=== PATIENT | female | born 1955 | race Caucasian/White ===

== ENCOUNTER → 2016-04-21 | Outpatient (CLI) | payer OTHER ==
[~2016-04-21] MED LIST: ALBU1.257 NEB; AMT25 PO; APR25 PO; ASPI81TA28 PO; BTLAI200 SQ; CARV3.122 PO; CLON0.5T3 PO; CRG625 PO; CYAN10005 SQ; DILT120C58 PO; DVN80125 PO; FESO8TAB PO; FLUT1AER5 INH; GABA1CAP5 PO; GLC/500 PO; GLIM1TAB2 PO; LIDO4CRE10 TOP; MAGN400T6 PO; POTA10CA28 PO; PRAM1TAB52 PO; PRLSR20 PO; PSYL0.524 PO; SIMV20TA2 PO; TORS10TA14 PO; VALS-10 PO; VALS160T4 PO; VNTHFA/IN INH
--- NOTE | 2016-04-21 15:45 | DIAGNOSTIC IMAGING REPORT ---
SACRUM COCCYX MIN 2 VIEWS CLINICAL HISTORY: Leg weakness and muscle spasms COMPARISON STUDY: None FINDINGS: There is a transitional vertebra present. There are degenerative changes present within the SI joints. There is no fusion. There are no erosive changes. No acute fractures are visualized. IMPRESSION: 1. Transitional vertebra 2. No conventional radiographic evidence of an inflammatory cellulitis 3. No acute fractures Electronically signed by: Jayden Gabriel M.D. 04/21/2016 3:43 PM Dictated Date/Time: 04/21/2016 3:42 PM
--- NOTE | 2016-04-21 15:48 | DIAGNOSTIC IMAGING REPORT ---
L-SPINE MIN 4 VIEWS ROUTINE CLINICAL HISTORY: Leg muscle weakness. COMPARISON: None FINDINGS: There is a gallstone within the gallbladder. Alignment of the lumbar spine is anatomic. Vertebral body heights are maintained. There is no acute fracture. Mild multilevel degenerative disc disease and facet arthrosis is present. IMPRESSION: 1. No lumbar spine fracture. 2. Mild multilevel degenerative disc disease and facet arthrosis of the lumbar spine. 3. Cholelithiasis. Electronically signed by: Walter Mendez M.D. 04/21/2016 3:46 PM Dictated Date/Time: 04/21/2016 3:44 PM
== END | disposition home or self-care (01) ==
LOC: C.RAD1850 15:06
PROVIDERS: ATTEND Nurse Practitioner Family
DX: G47.33 Obstructive sleep apnea (adult) (pediatric) (principal); M62.81 Muscle weakness (generalized); R20.2 Paresthesia of skin; Q76.49 Other congenital malformations of spine, not associated with scoliosis; K80.20 Calculus of gallbladder without cholecystitis without obstruction

== ENCOUNTER → 2016-06-23 | Outpatient (CLI) | payer OTHER ==
--- NOTE | 2016-06-23 14:20 | DIAGNOSTIC IMAGING REPORT ---
RIGHT SHOULDER MIN 2 VIEWS CLINICAL HISTORY: Right shoulder pain COMPARISON: None. DISCUSSION: No fractures or dislocations are visualized. There are mild degenerative changes in the AC joint. No destructive lesions are evident. IMPRESSION: Mild degenerative change. No fractures or dislocations identified. Electronically signed by: Jayden Gabriel M.D. 06/23/2016 2:19 PM Dictated Date/Time: 06/23/2016 2:18 PM
--- NOTE | 2016-06-23 15:00 | DIAGNOSTIC IMAGING REPORT ---
CERVICAL SPINE 4 OR 5 VIEWS CLINICAL HISTORY: Right shoulder pain. COMPARISON STUDY: No previous studies for comparison. FINDINGS: The inferior endplate of C7 is obscured on this exam. There is mild to moderate disc space narrowing with osteophytosis at C5-C6. No fracture or suspicious lesion is present. IMPRESSION: 1. Mild to moderate degenerative disc disease at C5-C6. 2. Obscuration of the inferior endplate of C7. No fracture within visualized portions of the cervical spine. Electronically signed by: Walter Mendez M.D. 06/23/2016 2:59 PM Dictated Date/Time: 06/23/2016 2:58 PM
== END | disposition home or self-care (01) ==
LOC: C.RDSM 14:35
PROVIDERS: ATTEND Family Medicine
DX: M25.511 Pain in right shoulder (principal); M50.322 Other cervical disc degeneration at C5-C6 level

== ENCOUNTER → 2016-09-24 | Outpatient (CLI) | payer OTHER ==
[~2016-09-24] MED LIST changes: -CLON0.5T3 PO; -DILT120C58 PO; -DVN80125 PO; -FESO8TAB PO; -VALS160T4 PO
--- NOTE | 2016-09-24 16:08 | MAMMOGRAPHY REPORT ---
BILATERAL DIGITAL SCREENING MAMMOGRAM TOMOSYNTHESIS WITH CAD: 09/24/2016 CLINICAL HISTORY: Routine screening. Patient has no complaints. TECHNIQUE: Breast tomosynthesis in addition to standard 2D mammography was performed. Current study was also evaluated with a Computer Aided Detection (CAD) system. COMPARISON: Comparison is made to exams dated: 09/24/2015 mammogram, 09/20/2014 mammogram, [facility], 06/23/2008, 06/23/2007, and 05/18/2006. BREAST COMPOSITION: The tissue of both breasts is almost entirely fatty. FINDINGS: No suspicious masses, calcifications, or areas of architectural distortion are noted in ei ther breast. There has been no significant interval change compared to prior exams. IMPRESSION: ACR BI-RADS CATEGORY 1: NEGATIVE There is no mammographic evidence of malignancy. A 1 year screening mammogram is recommended. The pa tient will receive written notification of the results. Approximately 10% of breast cancers are not detected with mammography. A negative mammographic report should not delay biopsy if a clinically suggestive mass is present. Donna Silva M.D. /:09/24/2016 15:24:01 [employer]: Leonila RUSSO(Jabier)(Danny)([place]), [facility] letter sent: Normal 1/2 BI-RADS Code: ACR BI-RADS Category 1: Negative
== END | disposition home or self-care (01) ==
LOC: C.MAMM 11:11
PROVIDERS: ATTEND Nurse Practitioner Family
DX: Z12.31 Encounter for screening mammogram for malignant neoplasm of breast (principal)

== ENCOUNTER → 2016-09-25 | Outpatient (CLI) | payer OTHER | END | disposition home or self-care (01) | LOC: C.LABSPEC 17:04 | PROVIDERS: ATTEND Nurse Practitioner Family | DX: N39.0 Urinary tract infection, site not specified (principal) ==

== ENCOUNTER → 2016-10-30 | Day surgery (SDC) | payer OTHER ==
[2016-09-23 11:13] VITALS: Ht 171.5 cm; Wt 159.1 kg
[~2016-10-30] VITALS: Ht 171.5 cm; Wt 159.1 kg
[~2016-10-30] MED LIST changes: +BUPIVACAINE 0.25% 2.5MG/ML PF 10 ML VIAL ONE; +IOPAMIDOL INJ 61% 15 ML VIAL ONE; +LIDOCAINE HCL 1% MPF 5 ML VIAL ONE
[2016-10-30 14:17] VITALS: BP 134/70; PULSE 70; TEMP 36.8; O2SAT 95
--- NOTE | 2016-10-30 14:25 | Discharge Instructions ---
Discharge Instructions Date of Service Oct 30, 2016. Visit Reason for Visit: Sacroiliitis Discharge Discharge Diagnosis / Problem: low back pain Discharge Goals Goal(s): Decrease discomfort, Improve function Activity Recommendations Activity Limitations: resume your previous activity Anesthesia . Post Anesthesia Instructions: If you have had General Anesthesia or IV Sedation: * Do not drive today. * Resume driving when surgeon permits. * Do not make important decisions or sign legal documents today. * Call surgeon for: 1. Temperature elevations greater than 101 degrees F. 2. Uncontrollable pain. 3. Excessive bleeding. 4. Persistent nausea and vomiting. 5. Medication intolerance (nausea, vomiting or rash). * For nausea and vomiting use only clear liquids such as: tea, soda, bouillon until nausea subsides, then gradually increase diet as tolerated. * If you have any concerns or questions, call your surgeon's office. If physician is unavailable and it is an emergency, call 911 or go to the nearest emergency room. . Diet Recommendations Recommended Home Diet: resume previous diet Procedures Procedures Performed: RIGHT SACROILIAC JOINT INJECTION Pending Studies Studies pending at discharge: no Medical Emergencies . Who to Call and When: Medical Emergencies: If at any time you feel your situation is an emergency, please call 911 immediately. . Non-Emergent Contact Non-Emergency issues call your: Specialist . . "Provider Documentation" section prepared by Richie Box. .
--- NOTE | 2016-10-30 14:44 | OPERATIVE REPORT ---
DATE OF OPERATION: 10/30/2016 PREOPERATIVE DIAGNOSIS: Right sacroiliitis. POSTOPERATIVE DIAGNOSIS: Same. PROCEDURE: Right sacroiliac joint injection under fluoroscopic guidance. INDICATIONS: The patient is a 61-year-old white female who presents today for a sacroiliac joint injection. She has known symphysis pubis pain and pain locating to the sacroiliac region. She presents today as conservative treatments have not improved her problems for an injection into the SI joint. PHYSICAL EXAMINATION: GENERAL: Pleasant female seated comfortably. MUSCULOSKELETAL: She has tenderness to palpation of the SI joints, most consistently on the right more so than the left. Mild reproduction of pain with extension. Positive Kirstin maneuver bilaterally. No motor or sensory changes in lower extremities. CONSENT: Verbal and written consent was obtained from the patient. Risks and benefits were reviewed. Risks include but are not limited to abscess and allergic reaction. The patient wishes to proceed. PROCEDURE: The patient was taken back to the special procedures room of the [facility]. She was maintained in a prone position. Backside was cleansed with Betadine x3 and a dry sterile dressing was applied. Fluoroscope was used to identify the right SI joint and the overlying skin was anesthetized with 4 mL of lidocaine 1% with a 25 gauge 1.5-inch needle. A 22 gauge 5 inch spinal needle was then directed into the right SI joint. There was some discomfort when it entered the SI joint. Isovue 300 contrast was injected; it showed it to be a little lateral. She then underwent repositioning more medially. Again 0.25 mL Isovue 300 contrast was injected in which showed intra-articular placement. She then underwent injection after negative aspiration of 40 mg of Depo-Medrol and 1.5 mL of bupivacaine 0.25%. Injection was well tolerated. DISPOSITION: 1. The patient is taken out into the discharge recovery area where she will be discharged home once discharge criteria have been met. 2. Follow up in the [facility] office in 2-4 weeks. I attest to the content of the Intraoperative Record and any orders documented therein. Any exception s are noted below.
== END | disposition home or self-care (01) ==
LOC: X.SURG 13:28
PROVIDERS: ATTEND Physical Medicine & Rehabilitation
DX: M46.1 Sacroiliitis, not elsewhere classified (principal); E11.40 Type 2 diabetes mellitus with diabetic neuropathy, unspecified

== ENCOUNTER → 2016-12-25 | Day surgery (SDC) | payer OTHER ==
[2016-12-10 12:30] VITALS: Ht 171.5 cm; Wt 148.6 kg
[~2016-12-25] VITALS: Ht 171.5 cm; Wt 148.6 kg
[~2016-12-25] MED LIST changes: -CARV3.122 PO; -IOPAMIDOL INJ 61% 15 ML VIAL ONE
--- NOTE | 2016-12-25 14:14 | History & Physical Bridge - SC ---
H&P Re-Evaluation Bridge Note: I have examined the patient, reviewed the History & Physical and in the interval since the performance of the History & Physical I have noted the following changes of clinical significance: No changes noted
[2016-12-25 14:36] VITALS: BP 125/68; PULSE 65; TEMP 36.7; O2SAT 98
--- NOTE | 2016-12-25 14:43 | Discharge Instructions ---
Discharge Instructions Date of Service Dec 25, 2016. Visit Reason for Visit: Low Back Pain Discharge Discharge Diagnosis / Problem: low back pain Discharge Goals Goal(s): Decrease discomfort, Improve function Activity Recommendations Activity Limitations: resume your previous activity Anesthesia . Post Anesthesia Instructions: If you have had General Anesthesia or IV Sedation: * Do not drive today. * Resume driving when surgeon permits. * Do not make important decisions or sign legal documents today. * Call surgeon for: 1. Temperature elevations greater than 101 degrees F. 2. Uncontrollable pain. 3. Excessive bleeding. 4. Persistent nausea and vomiting. 5. Medication intolerance (nausea, vomiting or rash). * For nausea and vomiting use only clear liquids such as: tea, soda, bouillon until nausea subsides, then gradually increase diet as tolerated. * If you have any concerns or questions, call your surgeon's office. If physician is unavailable and it is an emergency, call 911 or go to the nearest emergency room. . Diet Recommendations Recommended Home Diet: resume previous diet Procedures Procedures Performed: RIGHT L5-S1 MEDIAL BRANCH BLOCK Pending Studies Studies pending at discharge: no Medical Emergencies . Who to Call and When: Medical Emergencies: If at any time you feel your situation is an emergency, please call 911 immediately. . Non-Emergent Contact Non-Emergency issues call your: Specialist . . "Provider Documentation" section prepared by Richie Box. .
--- NOTE | 2016-12-25 15:13 | OPERATIVE REPORT ---
DATE OF OPERATION: 12/25/2016 PREOPERATIVE DIAGNOSES: Chronic low back pain and right L5-S1 facet arthropathy. POSTOPERATIVE DIAGNOSES: Same. PROCEDURE: Right L5-S1 facet medial branch blocks. INDICATIONS: The patient is a 61-year-old white female who has chronic right-sided low back pain. She did not get any benefit whatsoever from the sacroiliac joint injection and described her pain being a little higher than this. It is felt to be reflective of a facet arthropathy. She presents today for a diagnostic block to determine if this is indeed the etiology of her pain. PHYSICAL EXAMINATION: Pleasant female seated comfortably. She has point tenderness to palpation of the right L5-S1 facet area. This is worse with extension and rotation and actually relieved with forward flexion to the left side. She has normal motor and sensory examination of the lower extremities. CONSENT: Verbal and written consent was obtained from the patient. Risks and benefits were reviewed. Risks include, but are not limited to abscess and allergic reaction. The patient wishes to proceed. DESCRIPTION OF PROCEDURE: The patient was taken back to the special procedures room of the [facility], where she was maintained in a prone position. Backside was cleansed with Betadine x3 and a dry sterile dressing was applied. Fluoroscope was used to identify the L5 transverse process on the right and the right sacral ala. Overlying skin was anesthetized with 2.5 mL of lidocaine 1% with a 25-gauge 1-1/2 inch needle at each site. A 22-gauge 5-inch needle was directed at each site contacting bone at the sacral ala on the right and the right transverse process junction and then was anesthetized with 1 mL of bupivacaine 0.25% at each site. The procedure was well tolerated. DISPOSITION: 1. The patient was taken out into the discharge recovery area, where she will be discharged home once discharge criteria have been met. 2. Follow up in the [facility] office in 2-4 weeks. I attest to the content of the Intraoperative Record and any orders documented therein. Any exception s are noted below.
== END | disposition home or self-care (01) ==
LOC: X.SURG 13:27
PROVIDERS: ATTEND Physical Medicine & Rehabilitation
DX: M47.817 Spondylosis without myelopathy or radiculopathy, lumbosacral region (principal)

== ENCOUNTER → 2017-04-01 | Day surgery (SDC) | payer OTHER ==
[2017-03-09 11:41] VITALS: Ht 171.5 cm; Wt 151.8 kg
[~2017-04-01] VITALS: Ht 171.5 cm; Wt 151.8 kg
[~2017-04-01] MED LIST changes: -APR25 PO; +CARV6.252 PO; -CRG625 PO; -PSYL0.524 PO; -VALS-10 PO
[2017-04-01 14:28] VITALS: TEMP 36.4
--- NOTE | 2017-04-01 14:35 | Discharge Instructions ---
Discharge Instructions Date of Service Apr 01, 2017. Visit Reason for Visit: Lumbar Radiculopathy Discharge Discharge Diagnosis / Problem: low back pain Discharge Goals Goal(s): Decrease discomfort, Improve function Activity Recommendations Activity Limitations: resume your previous activity Anesthesia . Post Anesthesia Instructions: If you have had General Anesthesia or IV Sedation: * Do not drive today. * Resume driving when surgeon permits. * Do not make important decisions or sign legal documents today. * Call surgeon for: 1. Temperature elevations greater than 101 degrees F. 2. Uncontrollable pain. 3. Excessive bleeding. 4. Persistent nausea and vomiting. 5. Medication intolerance (nausea, vomiting or rash). * For nausea and vomiting use only clear liquids such as: tea, soda, bouillon until nausea subsides, then gradually increase diet as tolerated. * If you have any concerns or questions, call your surgeon's office. If physician is unavailable and it is an emergency, call 911 or go to the nearest emergency room. . Diet Recommendations Recommended Home Diet: resume previous diet Procedures Procedures Performed: Bilateral L5-S1 Medial Branch Blocks Pending Studies Studies pending at discharge: no Medical Emergencies . Who to Call and When: Medical Emergencies: If at any time you feel your situation is an emergency, please call 911 immediately. . Non-Emergent Contact Non-Emergency issues call your: Specialist . . "Provider Documentation" section prepared by Richie Box. .
[2017-04-01 14:40] VITALS: BP 149/67; PULSE 58; O2SAT 99
--- NOTE | 2017-04-01 14:53 | OPERATIVE REPORT ---
DATE OF OPERATION: 04/01/2017 PREOPERATIVE DIAGNOSES: Chronic low back pain, chronic facet arthropathy. POSTOPERATIVE DIAGNOSES: Same. PROCEDURE: Bilateral L5-S1 medial branch blocks under fluoroscopic guidance. INDICATIONS: The patient is a 61-year-old white female who underwent bilateral L5-S1 branch blocks in the past. She initially did not feel they were effective then she felt they were effective. She presents today for a second series of blocks to determine if indeed they were effective in relieving her back pain. PHYSICAL EXAMINATION: Pleasant female seated comfortably. She has normal motor and sensory examinations of her lower extremities. Negative seated straight leg raises. She has positive pain with palpation of the facet joints, worse with extension, extension and rotation. CONSENT: Verbal and written consent was obtained from the patient. Risks and benefits were reviewed. Risks include but are not limited to abscess and allergic reaction. The patient wishes to proceed. DESCRIPTION OF PROCEDURE: The patient was taken back to the special procedures room at [facility] where she was maintained in a prone position. Backside was cleansed with Betadine x3 and a dry sterile dressing was applied. Fluoroscope was used to identify the L5 transverse process and the sacral ala on the left side. Overlying skin was anesthetized with 1.25 mL of lidocaine 1% with a 25 gauge 1.5-inch needle. A 25-gauge 3-inch needle was then directed targeting bone at each sites, was lifted off a few millimeters and then injected with 1 mL of bupivacaine at each site. The right L5 transverse process and the right sacral ala were then fluoroscopically identified. There was a calcified transverse process to the sacral noted. Overlying skin anesthetized again with 1.25 mL of lidocaine 1% with a 25 gauge 1.5-inch needle, a 25 gauge 3.5 inch spinal needle contacted bone at each site was lifted off a few millimeters and then injected after negative aspiration with 1 mL bupivacaine 0.25%. The procedure was well tolerated. DISPOSITION: 1. The patient is taken out into the discharge recovery area, she will be discharged home once discharge criteria have been met. 2. Follow up in the [facility] office in 4 weeks. The importance of maintaining a pain dairy for the next 48 hours was reinforced with the patient today. I attest to the content of the Intraoperative Record and any orders documented therein. Any exception s are noted below.
== END | disposition home or self-care (01) ==
LOC: X.SURG 13:04
PROVIDERS: ATTEND Physical Medicine & Rehabilitation
DX: M54.5 Low back pain (principal); M51.86 Other intervertebral disc disorders, lumbar region; G89.29 Other chronic pain

== ENCOUNTER 2017-05-27 07:09 | Inpatient (IN) | payer OTHER ==
[~2017-05-27] VITALS: Ht 167.6 cm; Wt 138.8 kg
[2017-05-27] VITALS (9 sets, daily range): BP systolic 125–151; BP diastolic 63–85; PULSE 64–93; TEMP 36.6–36.9; O2SAT 91–98; Ht 167.6 cm; Wt 138.8 kg
[~2017-05-27 07:09] MED LIST changes: -ASPI81TA28 PO; -BUPIVACAINE 0.25% 2.5MG/ML PF 10 ML VIAL ONE; -GABA1CAP5 PO; -GLC/500 PO; -GLIM1TAB2 PO; -LIDOCAINE HCL 1% MPF 5 ML VIAL ONE; -MAGN400T6 PO; -POTA10CA28 PO; +PREG1CAP28 PO; -TORS10TA14 PO
[2017-05-27] MEDS ORDERED: FUROSEMIDE 40 MG/4 ML VIAL IV STA (07:27)
--- NOTE | 2017-05-27 07:53 | DIAGNOSTIC IMAGING REPORT ---
CHEST ONE VIEW PORTABLE HISTORY: 61 years-old Female sob acute cough with shortness of breath COMPARISON: Chest radiographs 01/19/2013 TECHNIQUE: Portable AP view of the chest FINDINGS: Cardiac silhouette is within the upper limits of normal in size. Atherosclerosis of the aorta. No pneumothorax. Blunting of the left costophrenic angle suggests trace effusion. Multifocal multilobar distribution of alveolar opacities are present bilaterally within a mid and lower lung zone predominant distribution. Bones of the chest appear grossly intact. IMPRESSION: 1. Multifocal multilobar distribution of alveolar opacities are present bilaterally within a mid and lower lung zone predominant distribution suggesting multifocal pneumonia. 2. Trace left pleural effusion. The above report was generated using voice recognition software. It may contain grammatical, syntax or spelling errors. Electronically signed by: Eron Boggs M.D. 05/27/2017 7:52 AM Dictated Date/Time: 05/27/2017 7:49 AM
[2017-05-27] MEDS ORDERED: CEFTRIAXONE SOD INJ 1 GM ADDVIAL IV STA (08:10)
[2017-05-27 08:14] LABS: BASO % 0.2 %; BASO ABS # 0.01 K/uL (0-0.2); EOS % 0.2 %; EOS ABS # 0.01 K/uL (0-0.5); HEMATOCRIT 35.8 % (37-47); HEMOGLOBIN 12.2 g/dL (12.0-16.0); IG# 0.01 K/uL (0.00-0.02); LYMPH % 8.7 %; LYMPH ABS # 0.45 K/uL (1.2-3.4); MEAN CELL VOLUME 91.3 fL (80-100); MEAN CORPUSCULAR HEMOGLOBIN 31.1 pg (25-34); MEAN CORPUSCULAR HGB CONC 34.1 g/dl (32-36); MEAN PLATELET VOLUME 11.5 fL (7.4-10.4); MONO % 5.4 %; MONO ABS # 0.28 K/uL (0.11-0.59); NEUT % 85.3 %; NEUT ABS # 4.44 K/uL (1.4-6.5); PLATELET COUNT 177 K/uL (130-400); RED CELL DISTRIBUTION WIDTH CV 14.9 % (11.5-14.5); RED CELL DISTRIBUTION WIDTH SD 49.6 fL (36.4-46.3)
[2017-05-27] MEDS ORDERED: AZITHROMYCIN IV 500 MG in DEXTROSE 5% 250ML 250 ML IV ONE (08:15)
[2017-05-27 08:31] LABS: PTT PATIENT 24.6 SECONDS (21.0-31.0)
[2017-05-27 08:32] LABS: ALBUMIN 3.4 gm/dl (3.4-5.0); ALT/SGPT 21 U/L (12-78); AST/SGOT 17 U/L (15-37); BLOOD UREA NITROGEN 23 mg/dl (7-18); CALCIUM 8.4 mg/dl (8.5-10.1); CARBON DIOXIDE 26 mmol/L (21-32); CREATININE 0.78 mg/dl (0.60-1.20); GLUCOSE 137 mg/dl (70-99); POTASSIUM 3.1 mmol/L (3.5-5.1); SODIUM 140 mmol/L (136-145)
[2017-05-27 08:37] LABS: ALKALINE PHOSPHATASE 106 U/L (45-117); TOTAL PROTEIN 6.7 gm/dl (6.4-8.2)
--- NOTE | 2017-05-27 10:06 | EMERGENCY ROOM VISIT NOTE ---
History Report prepared by Juan José: Mary Kelly Under the Supervision of: Dr. Tevin Larson D.O. First contact with patient: 07:22 Chief Complaint: RESPIRATORY PROBLEMS Stated Complaint: RATTLED BREATHING,COUGH, SOB, COLD History of Present Illness The patient is a 61 year old female who presents to the Emergency Room with complaints of constant shortness of breath for the past 3.5 hours. The patient states that she had a sudden onset of symptoms this morning at 4am. She woke up "breathing heavy." She felt cold this morning and developed a cough. She states that she is occasionally coughing up red sputum, which she is unsure if it is blood or juice from yesterday. She has been having difficulty breathing and has felt short of breath since she woke up. The patient has never experienced symptoms like this before. She denies any personal history CHF or LA. She does not take Lasix or use oxygen at home. The patient denies fevers, chills, rhinorrhea, chest pain. She notes leg swelling, which is chronic and she states is not as bad as usual. She has been eating and drinking normally. 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 A total of 10 systems reviewed and were otherwise negative. Past Medical & Surgical Medical Problems: (1) Hypertension Nos (2) Knee Joint Replacement Status (3) Pure Hypercholesterolem Surgical Problems: (1) H/O gastric bypass Family History Cancer Social History Smoking Status: Former Smoker Marital Status: Housing Status: lives with family Occupation Status: employed Current/Historical Medications Scheduled Amitriptyline HCl (Amitriptyline HCl), 25 MG PO HS Botulinum Toxin Type A (Botox), 1 DOSE SQ DIRECTED Carvedilol (Coreg), 12.5 MG PO BID Cyanocobalamin (Vitamin B-12), 1,000 MCG SQ MONTHLY Omeprazole (Prilosec), 20 MG PO QAM Pramipexole Dihydrochloride (Mirapex), 0.5 MG PO HS Pregabalin (Lyrica), 75 MG PO BID Simvastatin (Zocor), 20 MG PO QPM Scheduled PRN Albuterol Hfa (Ventolin Hfa), 2-4 PUFFS INH Q6H PRN for Shortness of Breath Albuterol Sulfate (Albuterol Sulfate), 1 VIAL NEB Q4 PRN for Shortness of Breath Fluticasone Propionate (Inhala (Flovent Diskus), 1 PUFFS INH BID PRN for Shortness of Breath Lidocaine (Anorectal) (Lidocaine), 1 APPLN TOP TID PRN for Itching Allergies Coded Allergies: Atenolol (Verified Allergy, Mild, RASH, 05/27/17) Benazepril (Verified Adverse Reaction, Mild, COUGH, 05/27/17) Physical Exam Vital Signs Date Time Temp Pulse Resp B/P (MAP) Pulse Ox O2 Delivery O2 Flow Rate FiO2 05/27/17 08:37 133/75 05/27/17 08:09 81 24 95 05/27/17 07:39 83 30 05/27/17 07:37 82 05/27/17 07:29 90 Nasal Cannula 4.0 05/27/17 07:29 90 Nasal Cannula 4.0 05/27/17 07:28 86 Room Air 05/27/17 07:28 90 Nasal Cannula 4.0 05/27/17 07:16 36.7 87 22 137/78 83 Room Air Physical Exam CONSTITUTIONAL/VITAL SIGNS: Reviewed / noted above. GENERAL: Non-toxic in appearance. INTEGUMENTARY: Warm, dry, and slightly ashen in appearance. HEAD: Normocephalic. EYES: without scleral icterus or trauma. ENT/OROPHARYNX: clear and moist. LYMPHADENOPATHY/NECK: Is supple without lymphadenopathy or meningismus. RESPIRATORY: Rhonchi bilaterally CARDIOVASCULAR: Regular rate and rhythm. GI/ABDOMEN: Soft and nontender. No organomegaly or pulsatile mass. No rebound or guarding. Normal bowel sounds. EXTREMITIES: Bilateral pedal edema. Warm and well perfused. BACK: No CVA tenderness. NEUROLOGICAL: Intact without focal deficits. PSYCHIATRIC: normal affect. MUSCULOSKELETAL: Normally developed with good muscle tone. Medical Decision & Procedures ER Provider Diagnostic Interpretation: Radiology results as stated below per my review and radiologist interpretation: CHEST ONE VIEW PORTABLE HISTORY: 61 years-old Female sob acute cough with shortness of breath COMPARISON: Chest radiographs 01/19/2013 TECHNIQUE: Portable AP view of the chest FINDINGS: Cardiac silhouette is within the upper limits of normal in size. Atherosclerosis of the aorta. No pneumothorax. Blunting of the left costophrenic angle suggests trace effusion. Multifocal multilobar distribution of alveolar opacities are present bilaterally within a mid and lower lung zone predominant distribution. Bones of the chest appear grossly intact. IMPRESSION: 1. Multifocal multilobar distribution of alveolar opacities are present bilaterally within a mid and lower lung zone predominant distribution suggesting multifocal pneumonia. 2. Trace left pleural effusion. The above report was generated using voice recognition software. It may contain grammatical, syntax or spelling errors. Electronically signed by: Eron Boggs M.D. 05/27/2017 7:52 AM Dictated Date/Time: 05/27/2017 7:49 AM Laboratory Results 05/27/17 07:45 Red Blood Count 3.92, Mean Corpuscular Volume 91.3, Mean Corpuscular Hemoglobin 31.1, Mean Corpuscular Hemoglobin Concent 34.1, Mean Platelet Volume 11.5, Neutrophils (%) (Auto) 85.3, Lymphocytes (%) (Auto) 8.7, Monocytes (%) (Auto) 5.4, Eosinophils (%) (Auto) 0.2, Basophils (%) (Auto) 0.2, Neutrophils # (Auto) 4.44, Lymphocytes # (Auto) 0.45, Monocytes # (Auto) 0.28, Eosinophils # (Auto) 0.01, Basophils # (Auto) 0.01 05/27/17 07:45 Test 05/27/17 07:45 05/27/17 08:06 White Blood Count 5.20 K/uL (4.8-10.8) Red Blood Count 3.92 M/uL (4.2-5.4) Hemoglobin 12.2 g/dL (12.0-16.0) Hematocrit 35.8 % (37-47) Mean Corpuscular Volume 91.3 fL (80-100) Mean Corpuscular Hemoglobin 31.1 pg (25-34) Mean Corpuscular Hemoglobin Concent 34.1 g/dl (32-36) Platelet Count 177 K/uL (130-400) Mean Platelet Volume 11.5 fL (7.4-10.4) Neutrophils (%) (Auto) 85.3 % Lymphocytes (%) (Auto) 8.7 % Monocytes (%) (Auto) 5.4 % Eosinophils (%) (Auto) 0.2 % Basophils (%) (Auto) 0.2 % Neutrophils # (Auto) 4.44 K/uL (1.4-6.5) Lymphocytes # (Auto) 0.45 K/uL (1.2-3.4) Monocytes # (Auto) 0.28 K/uL (0.11-0.59) Eosinophils # (Auto) 0.01 K/uL (0-0.5) Basophils # (Auto) 0.01 K/uL (0-0.2) RDW Standard Deviation 49.6 fL (36.4-46.3) RDW Coefficient of Variation 14.9 % (11.5-14.5) Immature Granulocyte % (Auto) 0.2 % Immature Granulocyte # (Auto) 0.01 K/uL (0.00-0.02) Prothrombin Time 10.4 SECONDS (9.0-12.0) Prothromb Time International Ratio 1.0 (0.9-1.1) Activated Partial Thromboplast Time 24.6 SECONDS (21.0-31.0) Partial Thromboplastin Ratio 0.9 Anion Gap 8.0 mmol/L (3-11) Estimated GFR () 93.8 Estimated GFR (Non- 80.9 BUN/Creatinine Ratio 30.0 (10-20) Calcium Level 8.4 mg/dl (8.5-10.1) Total Bilirubin 0.7 mg/dl (0.2-1) Aspartate Amino Transf (AST/SGOT) 17 U/L (15-37) Alanine Aminotransferase (ALT/SGPT) 21 U/L (12-78) Alkaline Phosphatase 106 U/L (45-117) Total Creatine Kinase 94 U/L (26-192) Creatine Kinase MB 4.0 ng/ml (0.5-3.6) Creatine Kinase MB Ratio 4.3 (0-3.0) Troponin I < 0.015 ng/ml (0-0.045) Pro-B-Type Natriuretic Peptide 399 pg/ml (0-900) Total Protein 6.7 gm/dl (6.4-8.2) Albumin 3.4 gm/dl (3.4-5.0) Globulin 3.3 gm/dl (2.5-4.0) Albumin/Globulin Ratio 1.0 (0.9-2) Arterial Blood pH 7.41 (7.35-7.45) Arterial Blood Partial Pressure CO2 41 mmHg (35-46) Arterial Blood Partial Pressure O2 80 mm/Hg (80-95) Arterial Blood HCO3 25 mmol/L (19-24) Arterial Blood Oxygen Saturation 95.3 % (90-95) Arterial Blood Base Excess 0.6 mEq/L (-9-1.8) Arterial Blood Gas Delivery 5 L Andrew Test POS (POS) Laboratory results as stated above per my review. Medications Administered Medications (Trade) Dose Ordered Sig/Carlos Route Start Time Stop Time Status Last Admin Dose Admin Furosemide (Lasix Inj) 40 mg NOW STAT IV 05/27/17 07:27 05/27/17 07:30 DC 05/27/17 07:48 40 MG Azithromycin 500 mg/Dextrose 255 ml @ 125 mls/hr ONE ONCE IV 05/27/17 08:15 05/27/17 10:17 05/27/17 09:20 125 MLS/HR Ceftriaxone Sodium (Rocephin Inj) 1 gm NOW STAT IV 05/27/17 08:10 05/27/17 08:12 DC 05/27/17 09:20 1 GM ECG Per My Interpretation Indication: SOB/dyspnea Rate (beats per minute): 84 Rhythm: normal sinus Findings: T-wave inversion (inferior/lateral), no ectopy, other (no ST elevation) Comparison ECG Date: 01/18/2012 Change: These changes are new. ED Course 0722: Previous medical records were reviewed. The patient was evaluated in room B9. A complete history and physical examination was performed. 0727: Lasix 40 mg IV 0810: Rocephin 1 gm IV 0815: Azithromycin 500 mg/Dextrose 255 ml @ 125 mls/hr IV 0919: I reassessed the patient at this time. She is feeling better and resting comfortably. I discussed the results and treatment plan with the patient. I answered all pertaining questions that she had. She expressed understanding and verbalized agreement. 0924: I spoke with Dr. Dominguez. We discussed the patient's case. The patient will be evaluated by the [facility] for further management. Medical Decision Differentials considered include acute myocardial infarction, acute coronary syndrome, myocarditis, pericarditis, pericardial effusions /tamponade, esophageal perforation, pulmonary embolism, pneumonia, pneumothorax, cardiomyopathy, congestive heart, anemia, and COPD/asthma exacerbation. This is a 61-year-old female who presents to the ED with a chief complaint of shortness of breath. The patient states that she awoke suddenly at 4 AM having breathing difficulty. The patient denies any recent illness. She denies cough , fevers, chest pains or lower extremity edema. The patient does report that she does have some chronic lower extremity edema but this has not been as bad as usual. She is not on diuretics. Her physical exam reveals an ashen colored female in mild distress. She has some coarse breath sounds that are audible on both exam and auscultation with a stethoscope. Her lungs reveal bilateral rhonchi/rales in the bases. Her oxygen saturation was noted to be 86% on room air. This did improve to the low 90s with nasal cannula oxygen. Chest x-ray reveals bilateral pneumonia. CBC reveals a normal white blood cell count. She is not anemic. BUN is 23, troponin is negative. ABG reveals a normal acid base status with adequate ventilation and oxygenation on 5 L. She is not typically on oxygen at home. Based on the patient's initial impression and clinical evaluation, she was treated with IV Lasix. She was subsequently given IV Zithromax and IV Rocephin. The patient will be seen by the hospitalist service for further inpatient evaluation and care. Medication Reconcilliation Current Medication List: was personally reviewed by me Blood Pressure Screening Patient's blood pressure: Elevated blood pressure Blood pressure disposition: Elevated BP felt to be situational Consults Time Called: [phone] Consulting Physician: Dr. Dominguez Returned Call: [phone] Dominguez. We discussed the patient's case. The patient will be evaluated by the [facility] for further management. Impression Primary Impression: Pneumonia Additional Impression: Hypoxia Scribe Attestation The scribe's documentation has been prepared under my direction and personally reviewed by me in its entirety. I confirm that the note above accurately reflects all work, treatment, procedures, and medical decision making performed by me. Departure Information Dispostion Being Evaluated By Hospitalist Referrals Saira Finley (PCP) Patient Instructions My [facility] Problem Qualifiers
[2017-05-27] MEDS ORDERED: MAGNESIUM HYDROXIDE SUSP 30 ML UDC PO PRN (10:30)
[2017-05-27] MEDS ORDERED: ONDANSETRON INJ 2 MG/ML 2 ML VIAL IV PRN (10:30)
[2017-05-27] MEDS ORDERED: POLYETHYLENE (MIRALAX) 17 GM PACK PO PRN (10:30)
[2017-05-27] MEDS ORDERED: DEXTROSE 50% 50 ML SYR IV PRN (10:30)
[2017-05-27] MEDS ORDERED: ACETAMINOPHEN 325 MG TAB PO PRN (10:30)
[2017-05-27] MEDS ORDERED: GLUCAGON FOR INJ 1 MG VIAL SQ PRN (10:30)
[2017-05-27] MEDS ORDERED: GLUCOSE 10 TABS/TUBE PO PRN (10:30)
[2017-05-27] MEDS ORDERED: GLUCOSE 40% GEL 15 GM TUBE PO PRN (10:30)
[2017-05-27] MEDS ORDERED: ALUMINUM/MAGNESIUM/SIMETH (MAALOX MAX) 30 ML UDC PO PRN (10:30)
[2017-05-27] MEDS ORDERED: POTASSIUM CHLORIDE 20 MEQ TABCR PO STA (10:36)
[2017-05-27] MEDS ORDERED: OPTIRAY 320 IV PRN (10:45)
--- NOTE | 2017-05-27 10:53 | History and Physical ---
History & Physical Date & Time of Service: May 27, 2017 at 10:33 Chief Complaint: Rattled Breathing,Cough, Sob, Cold Primary Care Physician: Saira Finley History of Present Illness Source: patient, spouse, clinic records, hospital records This is a 61 y/o female with a history of HTN, HLD, SVT, DM II, peripheral edema , asthma, CHELSIE on CPAP, RLS, GERD, and morbid obesity s/p recent gastric bypass who presented to the ED on 05/27 with sudden onset shortness of breath, productive cough, and wheezing. The patient states she was in her normal state of health last night when she went to bed. This morning she woke up around 0400 with sudden onset of shortness of breath and wheezing. She also developed a productive cough that appeared bloody, although the patient notes she was drinking strawberry juice yesterday. She reported feeling generally weak and fatigued this morning. She denies any fevers but reported chills. She also notes a diffuse 5/10 aching abdominal pain when she coughs. The patient recently had simultaneous gastric bypass, cholecystectomy, and hernia repair at [facility] [place]. The patient denies fevers, sweats, chest pain, palpitations, claudication, nausea, vomiting, dysuria, hematuria, urinary retention, paralysis , focal motor weakness, numbness and tingling. Past Medical/Surgical History HTN HLD H/o SVT DM II Peripheral edema Mild intermittent asthma CHELSIE on CPAP RLS GERD S/p gastric bypass Family History Cancer (liver, ovarian) Diabetes mellitus Myocardial infarction Social History Smoking Status: Former Smoker (quit 40 years ago) Smokeless Tobacco Use: No Alcohol Use: none Drug Use: none Marital Status: Housing status: lives with significant other Occupational Status: retired Immunizations History of Influenza Vaccine: Yes History of Tetanus Vaccine?: Unknown History of Pneumococcal: No History of Hepatitis B Vaccine: No Multi-Drug Resistant Organisms History of MDRO: No Allergies Coded Allergies: Atenolol (Verified Allergy, Mild, RASH, 05/27/17) Benazepril (Verified Adverse Reaction, Mild, COUGH, 05/27/17) Home Medications Scheduled Amitriptyline HCl (Amitriptyline HCl), 25 MG PO HS Botulinum Toxin Type A (Botox), 1 DOSE SQ DIRECTED Carvedilol (Coreg), 12.5 MG PO BID Cyanocobalamin (Vitamin B-12), 1,000 MCG SQ MONTHLY Omeprazole (Prilosec), 20 MG PO QAM Pramipexole Dihydrochloride (Mirapex), 0.5 MG PO HS Pregabalin (Lyrica), 75 MG PO BID Simvastatin (Zocor), 20 MG PO QPM Scheduled PRN Albuterol Hfa (Ventolin Hfa), 2-4 PUFFS INH Q6H PRN for Shortness of Breath Albuterol Sulfate (Albuterol Sulfate), 1 VIAL NEB Q4 PRN for Shortness of Breath Fluticasone Propionate (Inhala (Flovent Diskus), 1 PUFFS INH BID PRN for Shortness of Breath Lidocaine (Anorectal) (Lidocaine), 1 APPLN TOP TID PRN for Itching Review of Systems Constitutional: +Chills, weak, fatigued. No fever, No sweats Eyes: No worsening of vision, No eye pain, No diplopia ENT: No hearing loss, No nasal symptoms, No trouble swallowing Respiratory: +Productive cough, wheezing, SOB. Cardiovascular: No chest pain, No claudication, No palpitations Abdomen: +Abdominal pain w/coughing. No nausea, No vomiting Musculoskeletal: +Lower extremity edema improved since gastric bypass. No joint pain, No muscle pain Genitourinary - Female: No dysuria, No urinary retention, No hematuria Neurologic: No paralysis, No weakness, No numbness/tingling Integumentary: No rash, No itch, No color change Physical Exam Vital Signs Date Time Temp Pulse Resp B/P (MAP) Pulse Ox O2 Delivery O2 Flow Rate FiO2 05/27/17 10:12 75 29 97 05/27/17 09:42 74 22 95 05/27/17 09:12 76 27 97 05/27/17 08:42 77 23 97 05/27/17 08:37 133/75 05/27/17 08:09 81 24 95 05/27/17 07:39 83 30 05/27/17 07:37 82 05/27/17 07:29 90 Nasal Cannula 4.0 05/27/17 07:29 90 Nasal Cannula 4.0 05/27/17 07:28 86 Room Air 05/27/17 07:28 90 Nasal Cannula 4.0 05/27/17 07:16 36.7 87 22 137/78 83 Room Air General appearance: +Morbidly obese. Well-developed, well-nourished, no apparent distress Head: Normocephalic, atraumatic Eyes: Normal inspection, PERRL, EOMI ENT: Normal ENT inspection, hearing grossly normal, pharynx normal Neck: Supple, no JVD, trachea midline Respiratory/Chest: +Diffuse wheezing, rhonchi. On 4L NC. Normal breath sounds , no respiratory distress Cardiovascular: Regular rate & rhythm, no gallop, no murmur Abdomen/GI: +Umbilical area mildly TTP. Laparoscopic scars healed. Normal bowel sounds, soft Extremities/Musculoskeletal: +1+ pitting edema lower extremities bilaterally. Reportedly much improved since gastric bypass. No calf tenderness Neurological/Psych: Alert, normal mood/affect, oriented x 3 Skin: Normal color, warm/dry, no rash Diagnostics Laboratory Results Results Past 24 Hours Test 05/27/17 07:45 05/27/17 08:06 05/27/17 10:21 Range/Units White Blood Count 5.20 4.8-10.8 K/uL Red Blood Count 3.92 4.2-5.4 M/uL Hemoglobin 12.2 12.0-16.0 g/dL Hematocrit 35.8 37-47 % Mean Corpuscular Volume 91.3 80-100 fL Mean Corpuscular Hemoglobin 31.1 25-34 pg Mean Corpuscular Hemoglobin Concent 34.1 32-36 g/dl Platelet Count 177 130-400 K/uL Mean Platelet Volume 11.5 7.4-10.4 fL Neutrophils (%) (Auto) 85.3 % Lymphocytes (%) (Auto) 8.7 % Monocytes (%) (Auto) 5.4 % Eosinophils (%) (Auto) 0.2 % Basophils (%) (Auto) 0.2 % Neutrophils # (Auto) 4.44 1.4-6.5 K/uL Lymphocytes # (Auto) 0.45 1.2-3.4 K/uL Monocytes # (Auto) 0.28 0.11-0.59 K/uL Eosinophils # (Auto) 0.01 0-0.5 K/uL Basophils # (Auto) 0.01 0-0.2 K/uL RDW Standard Deviation 49.6 36.4-46.3 fL RDW Coefficient of Variation 14.9 11.5-14.5 % Immature Granulocyte % (Auto) 0.2 % Immature Granulocyte # (Auto) 0.01 0.00-0.02 K/uL Prothrombin Time 10.4 9.0-12.0 SECONDS Prothromb Time International Ratio 1.0 0.9-1.1 Activated Partial Thromboplast Time 24.6 21.0-31.0 SECONDS Partial Thromboplastin Ratio 0.9 Sodium Level 140 136-145 mmol/L Potassium Level 3.1 3.5-5.1 mmol/L Chloride Level 107 98-107 mmol/L Carbon Dioxide Level 26 21-32 mmol/L Anion Gap 8.0 3-11 mmol/L Blood Urea Nitrogen 23 7-18 mg/dl Creatinine 0.78 0.60-1.20 mg/dl Estimated GFR () 93.8 Estimated GFR (Non- 80.9 BUN/Creatinine Ratio 30.0 10-20 Random Glucose 137 70-99 mg/dl Calcium Level 8.4 8.5-10.1 mg/dl Total Bilirubin 0.7 0.2-1 mg/dl Aspartate Amino Transf (AST/SGOT) 17 15-37 U/L Alanine Aminotransferase (ALT/SGPT) 21 12-78 U/L Alkaline Phosphatase 106 45-117 U/L Total Creatine Kinase 94 26-192 U/L Creatine Kinase MB 4.0 0.5-3.6 ng/ml Creatine Kinase MB Ratio 4.3 0-3.0 Troponin I < 0.015 0-0.045 ng/ml Pro-B-Type Natriuretic Peptide 399 0-900 pg/ml Total Protein 6.7 6.4-8.2 gm/dl Albumin 3.4 3.4-5.0 gm/dl Globulin 3.3 2.5-4.0 gm/dl Albumin/Globulin Ratio 1.0 0.9-2 Arterial Blood pH 7.41 7.35-7.45 Arterial Blood Partial Pressure CO2 41 35-46 mmHg Arterial Blood Partial Pressure O2 80 80-95 mm/Hg Arterial Blood HCO3 25 19-24 mmol/L Arterial Blood Oxygen Saturation 95.3 90-95 % Arterial Blood Base Excess 0.6 -9-1.8 mEq/L Arterial Blood Gas Delivery 5 L Andrew Test POS POS Microbiology Results 05/27/17 Blood Culture, Received Pending 2/28/18 Blood Culture, Received Pending Diagnostic Radiology Reviewed the following studies and agree with interpretation as follows: CHEST ONE VIEW PORTABLE HISTORY: 61 years-old Female sob acute cough with shortness of breath COMPARISON: Chest radiographs 01/19/2013 TECHNIQUE: Portable AP view of the chest FINDINGS: Cardiac silhouette is within the upper limits of normal in size. Atherosclerosis of the aorta. No pneumothorax. Blunting of the left costophrenic angle suggests trace effusion. Multifocal multilobar distribution of alveolar opacities are present bilaterally within a mid and lower lung zone predominant distribution. Bones of the chest appear grossly intact. IMPRESSION: 1. Multifocal multilobar distribution of alveolar opacities are present bilaterally within a mid and lower lung zone predominant distribution suggesting multifocal pneumonia. 2. Trace left pleural effusion. EKG Reviewed EKG and agree with interpretation as follows: 84 bpm, NSR, inferior/lateral T wave abnormalities Impression Assessment and Plan 61 y/o female with a history of HTN, HLD, SVT, DM II, peripheral edema, asthma, CHELSIE on CPAP, RLS, GERD, and morbid obesity s/p recent gastric bypass (04/22/17) who presented to the ED on 05/27 with sudden onset shortness of breath, productive cough, and wheezing. Pt hypoxic on arrival with O2 sat 83% on room air, placed on 4L NC. Pt does not wear oxygen at home. Afebrile, other VSS. CXR shows multifocal pneumonia. EKG with inferior/lateral T wave abnormalities , troponin negative and no chest pain. BNP WNL. Potassium low at 3.1. ABG and other labs grossly unremarkable. Acute respiratory failure w/hypoxia, secondary to multifocal pneumonia and/or possibly PE--sudden onset of sx and recent surgery concerning for PE -Admit to telemetry -O2 by protocol. Currently on 4L NC, no oxygen at home -Stat chest CTA to r/o PE -Check lower extremity Doppler ultrasound bilaterally -Flu swab and MRSA nares swab ordered -Rocephin 1 gm IV qd and azithromycin 500 mg IV qd for PNA for now -Blood cultures pending -DuoNEbs QIDR and q2h prn SOB/wheezing Hypokalemia -Potassium 3.1 on arrival and received Lasix 40 mg IV in the ED -KCl 40 mEq PO x 1 now, then 20 mEq PO BID. Continue to monitor -Check magnesium now HTN, HLD, h/o SVT--stable -Continue Coreg 12.5 mg PO BID and Zocor 20 mg PO hs DM II w/neuropathy--last HgbA1c in hospital records from 2007. Pt had previously been on oral DM meds but stopped after bypass -Insulin sliding scale -Check BSGs q ac and qhs -Check HgbA1c -Continue amitriptyline 25 mg PO hs and Lyrica 75 mg PO BID Peripheral edema--improving per pt since bypass, no longer on diuretics, Dopplers as above Mild intermittent asthma -Nebs as above CHELSIE -Continue CPAP RLS -Continue Mirapex 0.5 mg PO hs GERD -Prilosec converted to Protonix DVT prophylaxis -Enoxaparin 40 mg SC q24h -EDIS varghese and Kailey Code Status -Level I, FULL RESUSCITATION STATUS Level of Care Telemetry Resuscitation Status FULL RESUSCITATION VTE Prophylaxis VTE Risk Assessment Done? Y/N: Yes Risk Level: Moderate Given or contraindicated: Enoxaparin (Lovenox)SQ, T.E.D. Stockings, SCD's Reviewed: Pt Seen/Exam by Me History Physician Opener [employer] supervision Note: I interviewed and examined the patient. Discussed with RA Olea and agree with findings and plan as documented in the note. Any exceptions or clarifications are listed here: Patient admitted with fairly acute onset of shortness of breath and productive cough, with possible scant hemoptysis. She did feel very fatigued the night prior to admission, but denies fevers. She did not have any associated chest pain. She arrived in the ER and was found to be hypoxic multifocal pneumonia on the chest x-ray and CT of the chest. Dopplers of lower extremities were negative despite chronic lower extremity edema which is actually improved since weight loss from her gastric bypass surgery. CT angiogram of the chest looking for PE showed no main pulmonary artery branch PEs, but was suboptimally assessed due to respiratory motion artifact for segmental and subsegmental PEs. She denies any sick contacts. She has been doing well otherwise since her gastric bypass surgery one month ago. Past medical history and ROS reviewed and as above Vitals reviewed Gen: AAOx3, NAD, morbidly obese HEENT: anicteric sclerae, EOMI, mucous membranes moist, no thrush in the oropharynx CV: RRR no mgr nl S1S2 Pulm: Bilateral lower and middle lung perez with crackles and rhonchi, some scattered expiratory wheezes bilaterally Abd: +BS soft NT ND no masses or hernias Ext: 1+ nonpitting edema of the legs bilaterally with chronic venous stasis changes and chronic blisters with woody edema of the left leg, 2+ DP pulses Skin: Chronic venous stasis changes as above, warm/dry Neuro: full strength throughout This patient is a 61-year-old female with a history of morbid obesity, peripheral edema, now diet controlled DM 2, HTN, HLD, SVT, asthma, CHELSIE on CPAP, RLS, GERD, and s/p recent gastric bypass (04/22/17) who presented to the ED on with sudden onset shortness of breath, productive cough, and wheezing. Pt with acute hypoxic respiratory failure on arrival with O2 sat 83% on room air and with tachypnea, was placed on 4L NC. Pt does not wear oxygen at home. Afebrile, other VSS. CXR shows multifocal pneumonia. EKG with inferior/ lateral T wave abnormalities, troponin negative and no chest pain. BNP WNL. Potassium low at 3.1. ABG and other labs grossly unremarkable. -CTA chest negative for large PE, venous Dopplers negative, no chest pain and acute hypoxic respiratory failure and dyspnea likely secondary to multifocal pneumonia-no further workup for PE needed at this time -Continue Rocephin and azithromycin for total 7 day course -Obtain sputum culture, follow blood cultures -Replace potassium -Repeat ECG in the morning given inferolateral T-wave inversions, repeat troponin -Wean oxygen off as tolerated to keep pulse ox. 92%, CPAP ordered for at nighttime -Lovenox SQ for DVT prophylaxis Documented By: Chelle Ashton
[2017-05-27] MEDS: ALBUT/IPRATROP 3MG/0.5MG NEB 3 ML VIAL INH SCH ×3 (11:48→19:36)
[2017-05-27] MEDS: ENOXAPARIN 40 MG/0.4 ML SYR SC SCH (12:18)
[2017-05-27] MEDS ORDERED: MAGNESIUM SULFATE 1GM / D5W 1 GM in PREMIXED IN D5W 100 ML IV ONE (12:45)
--- NOTE | 2017-05-27 12:57 | DIAGNOSTIC IMAGING REPORT ---
CT ANGIOGRAPHY OF THE CHEST, PULMONARY EMBOLUS PROTOCOL CLINICAL HISTORY: Shortness of breath. Recent gastric bypass surgery. COMPARISON STUDY: Chest CT June 24, 2013 and chest radiograph May 17, 2017. TECHNIQUE: Following IV administration of 86 mL of Optiray-320, helical axial images of the chest were obtained utilizing the pulmonary embolus protocol. Maximal intensity projections and sagittal and coronal reformats were viewed on an independent 3D workstation. IV contrast was administered without complication. A dose lowering technique was utilized adhering to the principles of ALARA. CT DOSE: 538.33 mGy.cm FINDINGS: No pulmonary emboli are identified although the segmental and subsegmental arteries are suboptimally assessed due to respiratory motion artifact. The heart is mildly enlarged. There is no pericardial effusion. There are no enlarged thoracic lymph nodes. No pneumothorax is present. There is no pleural effusion. Note is made of extensive bilateral lower lobe consolidation. There is no cavitation. There is no central obstructing mass. Bony thorax is unremarkable. The patient is status post gastric bypass. There is probable fatty infiltration of the liver. IMPRESSION: 1. No pulmonary emboli identified although segmental and subsegmental pulmonary arteries suboptimally assessed due to respiratory motion. 2. Extensive bilateral lower lobe consolidation consistent with pneumonia. The distribution raises the possibility of aspiration as the etiology. 3. Mild cardiomegaly. 4. Fatty liver. 5. Status post gastric bypass. Electronically signed by: Walter Mendez M.D. 05/27/2017 12:56 PM Dictated Date/Time: 05/27/2017 12:50 PM
[2017-05-27 13:01] LABS: INFLUENZA B ANTIGEN Neg for Influ B (NEG)
[2017-05-27] MEDS ORDERED: PNEUMOCOCCAL ADMINISTRATION CHARGE ONE (14:15)
[2017-05-27] MEDS ORDERED: PNEUMOCOCCAL POLYSACCHARIDES 25 MCG/0.5 ML VIAL/SYR IM. ONE (14:15)
--- NOTE | 2017-05-27 15:39 | DIAGNOSTIC IMAGING REPORT ---
BILATERAL LOWER EXTREMITY VENOUS DOPPLER CLINICAL HISTORY: recent surgery, lower extremity edema COMPARISON STUDY: Bilateral lower extremity venous Doppler January 16, 2008. TECHNIQUE: Sonography of the deep venous system of the bilateral lower extremities was performed. Compression and augmentation were evaluated. FINDINGS: The common femoral, superficial femoral and popliteal veins were compressible. Augmentation was normal. Flow was shown within the deep calf vessels. Bilateral calf edema was noted. IMPRESSION: No evidence of deep venous thrombus within the bilateral lower extremities. Electronically signed by: Walter Mendez M.D. 05/27/2017 3:37 PM Dictated Date/Time: 05/27/2017 3:36 PM
[2017-05-27] MEDS ORDERED: NURSING VERBAL MED ORDER ONE (16:15)
[2017-05-27] MEDS ORDERED: PREGABALIN 75 MG CAP PO ONE ×2 (16:30→21:30)
[2017-05-27] MEDS: INSULIN ASPART 100 UNITS/ML 3 ML PEN SC SCH ×2 (16:30→21:00)
[2017-05-27] MEDS ORDERED: CARVEDILOL 12.5 MG TAB PO ONE (16:30)
[2017-05-27] MEDS ORDERED: FLINTSTONES COMPLETE CHEWABLE TAB PO ONE (16:30)
[2017-05-27] MEDS ORDERED: BOOST VANILLA PO SCH (17:00)
[2017-05-27] MEDS: SIMVASTATIN 20 MG TAB PO SCH (21:41)
[2017-05-27] MEDS: AMITRIPTYLINE HCL 25 MG TAB PO SCH (21:42)
[2017-05-27] MEDS: PROSOURCE NOCARB 30ML/PKT PO SCH (21:42)
[2017-05-27] MEDS: PRAMIPEXOLE DIHYDROCHLORIDE 0.25MG TAB PO SCH (21:43)
[2017-05-27] MEDS: POTASSIUM CHLORIDE 20 MEQ TABCR PO SCH (21:43)
[2017-05-27] MEDS: BOOST GLUCOSE CONTROL PO SCH (21:43)
[2017-05-27] MEDS: FLINTSTONES COMPLETE CHEWABLE TAB PO SCH (21:43)
[2017-05-28] VITALS (12 sets, daily range): BP systolic 129–167; BP diastolic 53–80; PULSE 65–77; TEMP 36.1–37.2; O2SAT 93–96
[2017-05-28] MEDS: INSULIN ASPART 100 UNITS/ML 3 ML PEN SC SCH ×4 (06:30→20:39)
[2017-05-28 06:37] LABS: HEMATOCRIT 28.1 % (37-47); HEMOGLOBIN 9.7 g/dL (12.0-16.0); MEAN CELL VOLUME 91.5 fL (80-100); MEAN CORPUSCULAR HEMOGLOBIN 31.6 pg (25-34); MEAN CORPUSCULAR HGB CONC 34.5 g/dl (32-36); MEAN PLATELET VOLUME 11.5 fL (7.4-10.4); PLATELET COUNT 159 K/uL (130-400); RED CELL DISTRIBUTION WIDTH CV 15.3 % (11.5-14.5); RED CELL DISTRIBUTION WIDTH SD 50.8 fL (36.4-46.3); WHITE BLOOD COUNT 7.51 K/uL (4.8-10.8)
[2017-05-28] MEDS: ALBUT/IPRATROP 3MG/0.5MG NEB 3 ML VIAL INH SCH ×4 (07:03→20:15)
[2017-05-28 07:09] LABS: CALCIUM 8.5 mg/dl (8.5-10.1); CREATININE 0.68 mg/dl (0.60-1.20); POTASSIUM 3.2 mmol/L (3.5-5.1)
[2017-05-28] MEDS: CARVEDILOL 6.25 MG TAB PO SCH ×2 (07:49→20:39)
[2017-05-28] MEDS: PANTOprazole SOD 40 MG TAB PO SCH (07:51)
[2017-05-28] MEDS: FLINTSTONES COMPLETE CHEWABLE TAB PO SCH ×2 (07:51→20:37)
[2017-05-28] MEDS: CEFTRIAXONE SOD INJ 1 GM in DEXTROSE 5% ADD-VANTAGE 50ML 50 ML IV SCH (07:52)
[2017-05-28] MEDS: BOOST GLUCOSE CONTROL PO SCH ×2 (07:52→20:36)
[2017-05-28] MEDS: POTASSIUM CHLORIDE 20 MEQ TABCR PO SCH ×2 (07:52→20:37)
[2017-05-28] MEDS: PROSOURCE NOCARB 30ML/PKT PO SCH ×2 (07:53→20:38)
[2017-05-28] MEDS: AZITHROMYCIN IV 500 MG in DEXTROSE 5% 250ML 250 ML IV SCH (07:57)
[2017-05-28] MEDS: PREGABALIN 75 MG CAP PO SCH ×2 (07:57→20:49)
[2017-05-28] MEDS ORDERED: CYANOCOBALAMIN 1000 MCG/ML VIAL IM ONE (09:00)
[2017-05-28] MEDS ORDERED: MULTIVITAMIN TAB PO SCH (09:00)
[2017-05-28] MEDS ORDERED: POTASSIUM CHLORIDE 20 MEQ TABCR PO ONE (10:30)
[2017-05-28] MEDS: ENOXAPARIN 40 MG/0.4 ML SYR SC SCH (12:07)
--- NOTE | 2017-05-28 14:05 | Hospitalist Progress Note ---
Hospitalist Progress Note Date of Service May 28, 2017. (Paula Olea ., YUNIORC) Subjective Pt evaluation today including: conversation w/ patient, physical exam, chart review, lab review, review of studies, review of inpatient medication list Pain: None PO Intake: Tolerating PO diet Voiding: no voiding problems Patient reports feeling much better today. She is still short of breath and feels some chest pressure when taking deep breaths. She also states her wheezing is improved. She complains of a non-productive cough, no more bloody sputum. She denies any chills today. The patient denies fevers, chills, sweats , chest pain, palpitations, claudication, nausea, vomiting, abdominal pain, dysuria, hematuria, urinary retention, paralysis, weakness, numbness and tingling. Additional Comments: See HPI for pertinent positives and negatives. All other systems reviewed and negative. (Paula Olea ., PA-C) Objective Vital Signs Date Time Temp Pulse Resp B/P (MAP) Pulse Ox O2 Delivery O2 Flow Rate FiO2 05/28/17 11:57 Nasal Cannula 2.0 05/28/17 11:38 36.1 67 16 150/53 (85) 96 Room Air 05/28/17 08:00 Nasal Cannula 2.0 05/28/17 07:40 36.7 68 16 139/68 (91) 94 Room Air 05/28/17 07:03 71 16 94 Nasal Cannula 2.0 05/28/17 04:00 93 Nasal Cannula 2.0 05/28/17 04:00 36.6 72 20 129/69 (89) 93 Nasal Cannula 2.0 05/28/17 00:19 37.1 05/28/17 00:00 Nasal Cannula 2.0 CPAP 05/27/17 23:28 66 16 125/65 (85) 91 CPAP 05/27/17 22:22 85 96 05/27/17 20:00 Nasal Cannula 2.0 05/27/17 19:36 64 16 95 Nasal Cannula 2.0 05/27/17 19:24 36.9 93 22 139/63 (88) 95 Nasal Cannula 2.0 05/27/17 16:10 36.7 69 20 151/76 (101) 96 Nasal Cannula 2.0 05/27/17 16:00 96 Nasal Cannula 2.0 (Paula Olea ., PA-C) Physical Exam Notes: General appearance: +Morbidly obese. Well-developed, well-nourished, no apparent distress Head: Normocephalic, atraumatic Eyes: Normal inspection, PERRL, EOMI ENT: Normal ENT inspection, hearing grossly normal, pharynx normal Neck: Supple, no JVD, trachea midline Respiratory/Chest: +Down to 2L NC. Decreased breath sounds, tight w/poor air movement. Crackles in bases. No respiratory distress Cardiovascular: Regular rate & rhythm, no gallop, no murmur Abdomen/GI: Normal bowel sounds, non-tender, soft Extremities/Musculoskeletal: +1+ pitting edema lower extremities bilaterally. Normal inspection, no calf tenderness Neurological/Psych: Alert, normal mood/affect, oriented x 3 Skin: Normal color, warm/dry, no rash (Paula Olea ., RA-C) Laboratory Results Last 24 Hours Test 05/27/17 16:30 05/27/17 20:30 05/28/17 00:29 05/28/17 06:00 Bedside Glucose 119 mg/dl 98 mg/dl Troponin I < 0.015 ng/ml White Blood Count 7.51 K/uL Red Blood Count 3.07 M/uL Hemoglobin 9.7 g/dL Hematocrit 28.1 % Mean Corpuscular Volume 91.5 fL Mean Corpuscular Hemoglobin 31.6 pg Mean Corpuscular Hemoglobin Concent 34.5 g/dl RDW Standard Deviation 50.8 fL RDW Coefficient of Variation 15.3 % Platelet Count 159 K/uL Mean Platelet Volume 11.5 fL Sodium Level 141 mmol/L Potassium Level 3.2 mmol/L Chloride Level 106 mmol/L Carbon Dioxide Level 28 mmol/L Anion Gap 7.0 mmol/L Blood Urea Nitrogen 20 mg/dl Creatinine 0.68 mg/dl Est Creatinine Clear Calc Drug Dose 123.1 ml/min Estimated GFR () 107.9 Estimated GFR (Non- 93.1 BUN/Creatinine Ratio 29.0 Random Glucose 106 mg/dl Calcium Level 8.5 mg/dl Magnesium Level 2.0 mg/dl Test 05/28/17 07:21 Bedside Glucose 117 mg/dl (Paula Olea PA-C) Diagnostic Results Reviewed the following studies and agree with interpretation as follows: BILATERAL LOWER EXTREMITY VENOUS DOPPLER CLINICAL HISTORY: recent surgery, lower extremity edema COMPARISON STUDY: Bilateral lower extremity venous Doppler January 16, 2008. TECHNIQUE: Sonography of the deep venous system of the bilateral lower extremities was performed. Compression and augmentation were evaluated. FINDINGS: The common femoral, superficial femoral and popliteal veins were compressible. Augmentation was normal. Flow was shown within the deep calf vessels. Bilateral calf edema was noted. IMPRESSION: No evidence of deep venous thrombus within the bilateral lower extremities. CT ANGIOGRAPHY OF THE CHEST, PULMONARY EMBOLUS PROTOCOL CLINICAL HISTORY: Shortness of breath. Recent gastric bypass surgery. COMPARISON STUDY: Chest CT June 24, 2013 and chest radiograph May 17, 2017. TECHNIQUE: Following IV administration of 86 mL of Optiray-320, helical axial images of the chest were obtained utilizing the pulmonary embolus protocol. Maximal intensity projections and sagittal and coronal reformats were viewed on an independent 3D workstation. IV contrast was administered without complication. A dose lowering technique was utilized adhering to the principles of ALARA. CT DOSE: 538.33 mGy.cm FINDINGS: No pulmonary emboli are identified although the segmental and subsegmental arteries are suboptimally assessed due to respiratory motion artifact. The heart is mildly enlarged. There is no pericardial effusion. There are no enlarged thoracic lymph nodes. No pneumothorax is present. There is no pleural effusion. Note is made of extensive bilateral lower lobe consolidation. There is no cavitation. There is no central obstructing mass. Bony thorax is unremarkable. The patient is status post gastric bypass. There is probable fatty infiltration of the liver. IMPRESSION: 1. No pulmonary emboli identified although segmental and subsegmental pulmonary arteries suboptimally assessed due to respiratory motion. 2. Extensive bilateral lower lobe consolidation consistent with pneumonia. The distribution raises the possibility of aspiration as the etiology. 3. Mild cardiomegaly. 4. Fatty liver. 5. Status post gastric bypass. (Paula Olea ., PA-C) Assessment and Plan 61 y/o female with a history of HTN, HLD, SVT, DM II, peripheral edema, asthma, CHELSIE on CPAP, RLS, GERD, and morbid obesity s/p recent gastric bypass (04/22/17) who presented to the ED on 05/27 with sudden onset shortness of breath, productive cough, and wheezing. Pt hypoxic on arrival with O2 sat 83% on room air, placed on 4L NC. Pt does not wear oxygen at home. Afebrile, other VSS. CXR shows multifocal pneumonia. EKG with inferior/lateral T wave abnormalities , troponin negative and no chest pain. BNP WNL. Potassium low at 3.1. ABG and other labs grossly unremarkable. Acute respiratory failure w/hypoxia, secondary to multifocal pneumonia-- improving -Admit to telemetry. No acute events overnight. Pt in SR with HR in 60s, no SVT. Stable, will transfer to med/surg -O2 by protocol. Weaned down from 4L to 2L currently, continue to wean as tolerated. NOT on home oxygen -CTA negative for PE -B/l lower extremity Doppler negative for DVT -Flu swab negative, MRSA nares negative -Continue Rocephin 1 gm IV qd and azithromycin 500 mg IV qd. Day #2 -Blood cultures pending -DuoNEbs QIDR and q2h prn SOB/wheezing Hypokalemia--ongoing -Potassium 3.2 on 05/28 -KCl 40 mEq PO x 1 now, continue 20 mEq PO BID -Hypomagnesemia resolved, mag 2.0 on 05/28 HTN, HLD, h/o SVT--stable -Continue Coreg 12.5 mg PO BID and Zocor 20 mg PO hs DM II w/neuropathy--last HgbA1c in hospital records from 2007. Pt had previously been on oral DM meds but stopped after bypass -Insulin sliding scale -Check BSGs q ac and qhs -HgbA1c 6.0 on 05/27 -Continue amitriptyline 25 mg PO hs and Lyrica 75 mg PO BID Peripheral edema--improving per pt since bypass, no longer on diuretics, Dopplers negative for DVT Mild intermittent asthma -Nebs as above CHELSIE -Continue CPAP RLS -Continue Mirapex 0.5 mg PO hs GERD -Prilosec converted to Protonix DVT prophylaxis -Enoxaparin 40 mg SC q24h -EDIS hose and SCDs Code Status -Level I, FULL RESUSCITATION STATUS (Paula Olea, GLO) Reviewed: Pt Seen/Exam by Me (Chelle Ashton MD) History Physician Database Specialist supervision Note: I interviewed and examined the patient. Discussed with RA Olea and agree with findings and plan as documented in the note. Any exceptions or clarifications are listed here: Feeling better, less cough, less SOB, ambulated to BR without dyspnea. Vitals reviewed Gen: AAOx3, NAD, morbidly obese HEENT: anicteric sclerae, EOMI, mucous membranes moist, no thrush in the oropharynx CV: RRR no mgr nl S1S2 Pulm: Bilateral lower and middle lung perez with crackles and rhonchi, some scattered expiratory wheezes bilaterally Abd: +BS soft NT ND no masses or hernias Ext: 1+ nonpitting edema of the legs bilaterally with chronic venous stasis changes and chronic blisters with woody edema of the left leg, 2+ DP pulses Skin: Chronic venous stasis changes as above, warm/dry Neuro: full strength throughout Troponin neg x 2 ECG now without TWI inferior leads This patient is a 61-year-old female with a history of morbid obesity, peripheral edema, now diet controlled DM 2, HTN, HLD, SVT, asthma, CHELSIE on CPAP, RLS, GERD, and s/p recent gastric bypass (04/22/17) who presented to the ED on with sudden onset shortness of breath, productive cough, and wheezing. Pt with acute hypoxic respiratory failure on arrival with O2 sat 83% on room air and with tachypnea, was placed on 4L NC. Pt does not wear oxygen at home. Afebrile, other VSS. CXR shows multifocal pneumonia. EKG with inferior/ lateral T wave abnormalities, troponin negative and no chest pain. BNP WNL. Potassium low at 3.1. ABG and other labs grossly unremarkable. ECG now without ischemic changes, troponin neg x 2 PNA symptoms improving, weaning lower on supplemental O2 -CTA chest negative for large PE, venous Dopplers negative, no chest pain and acute hypoxic respiratory failure and dyspnea likely secondary to multifocal pneumonia-no further workup for PE needed at this time -Continue Rocephin and azithromycin for total 7 day course-if goes home prior to that, could go out on Levaquin po -not able to produce sputum culture, follow blood cultures -Replace potassium -Wean oxygen off as tolerated to keep pulse ox. 92%, CPAP ordered for at nighttime -Lovenox SQ for DVT prophylaxis -Transfer to medical, could potentially dc to home tomorrow if improved, ambulates halls, may need 2 step Documented By: Chelle Ashton (Chelle Ashton MD)
[2017-05-28] MEDS: AMITRIPTYLINE HCL 25 MG TAB PO SCH (20:37)
[2017-05-28] MEDS: SIMVASTATIN 20 MG TAB PO SCH (20:37)
[2017-05-28] MEDS: PRAMIPEXOLE DIHYDROCHLORIDE 0.25MG TAB PO SCH (20:39)
[2017-05-29 01:11] VITALS: PULSE 70; O2SAT 94
[2017-05-29 06:27] LABS: HEMATOCRIT 27.6 % (37-47); HEMOGLOBIN 9.4 g/dL (12.0-16.0); MEAN CELL VOLUME 92.6 fL (80-100); MEAN CORPUSCULAR HEMOGLOBIN 31.5 pg (25-34); MEAN CORPUSCULAR HGB CONC 34.1 g/dl (32-36); MEAN PLATELET VOLUME 11.2 fL (7.4-10.4); PLATELET COUNT 150 K/uL (130-400); RED CELL DISTRIBUTION WIDTH CV 15.3 % (11.5-14.5); WHITE BLOOD COUNT 5.28 K/uL (4.8-10.8)
[2017-05-29] MEDS: INSULIN ASPART 100 UNITS/ML 3 ML PEN SC SCH ×2 (06:30→11:00)
[2017-05-29 07:06] LABS: CALCIUM 8.4 mg/dl (8.5-10.1); CREATININE 0.61 mg/dl (0.60-1.20); POTASSIUM 3.8 mmol/L (3.5-5.1)
[2017-05-29 07:10] VITALS: PULSE 57; O2SAT 96
[2017-05-29] MEDS: ALBUT/IPRATROP 3MG/0.5MG NEB 3 ML VIAL INH SCH ×2 (07:10→11:28)
[2017-05-29 07:26] VITALS: BP 155/79; PULSE 57; TEMP 36.6; O2SAT 96
[2017-05-29] MEDS: PROSOURCE NOCARB 30ML/PKT PO SCH (07:59)
[2017-05-29] MEDS: BOOST GLUCOSE CONTROL PO SCH (07:59)
[2017-05-29] MEDS: FLINTSTONES COMPLETE CHEWABLE TAB PO SCH (08:01)
[2017-05-29] MEDS: AZITHROMYCIN IV 500 MG in DEXTROSE 5% 250ML 250 ML IV SCH (08:01)
[2017-05-29] MEDS: PREGABALIN 75 MG CAP PO SCH (08:01)
[2017-05-29] MEDS: POTASSIUM CHLORIDE 20 MEQ TABCR PO SCH (08:01)
[2017-05-29] MEDS: PANTOprazole SOD 40 MG TAB PO SCH (08:02)
[2017-05-29] MEDS: CARVEDILOL 6.25 MG TAB PO SCH (08:02)
[2017-05-29] MEDS: CEFTRIAXONE SOD INJ 1 GM in DEXTROSE 5% ADD-VANTAGE 50ML 50 ML IV SCH (08:02)
[2017-05-29 11:28] VITALS: PULSE 57; O2SAT 91
[2017-05-29] MEDS ORDERED: BOOST GLUCOSE CONTROL PO SCH (11:30)
[2017-05-29] MEDS ORDERED: PROSOURCE NOCARB 30ML/PKT PO SCH (11:30)
[2017-05-29 11:35] VITALS: BP 162/72; PULSE 58; TEMP 37; O2SAT 99
[2017-05-29] MEDS: ENOXAPARIN 40 MG/0.4 ML SYR SC SCH (12:38)
[2017-05-29] MEDS ORDERED: IPRASOL4 INH (14:45)
[2017-05-29] MEDS ORDERED: LVQ750 PO (14:45)
[2017-05-29] MEDS ORDERED: MCRK20 PO (14:45)
--- NOTE | 2017-05-29 14:54 | Discharge Instructions ---
Discharge Instructions Date of Service May 29, 2017. Admission Reason for Admission: Hypoxia,Pneumonia Discharge Discharge Diagnosis / Problem: Multifocal pneumonia, acute hypoxic respiratory failure Discharge Goals Goal(s): Decrease discomfort, Improve function, Diagnostic testing, Therapeutic intervention Activity Recommendations Activity Limitations: resume your previous activity (as tolerated) . Instructions / Follow-Up Instructions / Follow-Up You were admitted to the hospital after presenting with sudden onset of shortness of breath and wheezing. You were found to have multifocal pneumonia as well as acute respiratory failure with hypoxia. You were placed on supplemental oxygen and treated with IV antibiotics and nebulizer treatments. Your respiratory failure is now resolved and you are back on room air. As you are feeling better, you are medically stable for discharge with the following medications. Medications: *Please take levofloxacin (Levaquin) 750 mg by mouth daily for 4 more days. This is an antibiotic to treat your pneumonia. *You may use a DuoNeb nebulizer up to four times a day as needed for shortness of breath and/or wheezing. *Continue your home medications as prescribed. Follow up: *You have been scheduled to follow up with your primary care provider next week regarding your hospital stay. Please also follow up regarding your potassium level. *To follow up on your pneumonia, it is recommended that you have a repeat chest x-ray in 3-4 weeks to ensure resolution. Please seek medical attention if you experience fevers, chills, sweats, dizziness/lightheadedness, loss of consciousness, chest pain, shortness of breath, nausea, vomiting, numbness or tingling. Current Hospital Diet Patient's current hospital diet: Diabetes Type 2 Diet, AHA Diet (Heart Healthy) Discharge Diet Recommended Diet: AHA Diet (Heart Healthy), Diabetes Type 2 Diet Procedures Procedures Performed: CT angiogram of the chest Chest x-ray Lower extremity venous Dopplers Pending Studies Studies pending at discharge: yes List of pending studies: Final results of blood cultures-no growth to date so far Laboratory Results Hemoglobin A1c Test 05/27/17 07:45 Range/Units Estimated Average Glucose 126 mg/dl Hemoglobin A1c 6.0 H 4.5-5.6 % Medical Emergencies . Who to Call and When: Medical Emergencies: If at any time you feel your situation is an emergency, please call 911 immediately. . Non-Emergent Contact Non-Emergency issues call your: Primary Care Provider Call Non-Emergent contact if: you have a fever, you have any medication questions . Past History Medical & Surgical History: (1) Acute respiratory failure with hypoxia (2) Pneumonia . "Provider Documentation" section prepared by Paula Olea. .
[2017-05-29 15:00] VITALS: BP 162/72; PULSE 58; TEMP 37; O2SAT 99
--- NOTE | 2017-05-29 15:04 | Discharge Summary ---
Discharge Summary Date of Service May 29, 2017. Discharge Summary Admission Date: May 27, 2017 at 10:30 Discharge Date: May 29, 2017 Discharge Disposition: Home Principal Diagnosis: Multifocal pneumonia, acute respiratory failure with hypoxia Problems/Secondary Diagnoses: HTN HLD History of SVT DM II Peripheral edema Asthma CHELSIE on CPAP RLS GERD Morbid obesity s/p recent gastric bypass Normocytic anemia Hypokalemia Hypomagnesemia Diabetic peripheral neuropathy Morbid obesity, BMI 49.4 Documented By: Chelle Ashton Immunizations: Have You Had Influenza Vaccine: Yes History of Tetanus Vaccine?: Unknown History of Pneumococcal: No History of Hepatitis B Vaccine: No Procedures: CHEST ONE VIEW PORTABLE HISTORY: 61 years-old Female sob acute cough with shortness of breath COMPARISON: Chest radiographs 01/19/2013 TECHNIQUE: Portable AP view of the chest FINDINGS: Cardiac silhouette is within the upper limits of normal in size. Atherosclerosis of the aorta. No pneumothorax. Blunting of the left costophrenic angle suggests trace effusion. Multifocal multilobar distribution of alveolar opacities are present bilaterally within a mid and lower lung zone predominant distribution. Bones of the chest appear grossly intact. IMPRESSION: 1. Multifocal multilobar distribution of alveolar opacities are present bilaterally within a mid and lower lung zone predominant distribution suggesting multifocal pneumonia. 2. Trace left pleural effusion. BILATERAL LOWER EXTREMITY VENOUS DOPPLER CLINICAL HISTORY: recent surgery, lower extremity edema COMPARISON STUDY: Bilateral lower extremity venous Doppler January 16, 2008. TECHNIQUE: Sonography of the deep venous system of the bilateral lower extremities was performed. Compression and augmentation were evaluated. FINDINGS: The common femoral, superficial femoral and popliteal veins were compressible. Augmentation was normal. Flow was shown within the deep calf vessels. Bilateral calf edema was noted. IMPRESSION: No evidence of deep venous thrombus within the bilateral lower extremities. CT ANGIOGRAPHY OF THE CHEST, PULMONARY EMBOLUS PROTOCOL CLINICAL HISTORY: Shortness of breath. Recent gastric bypass surgery. COMPARISON STUDY: Chest CT June 24, 2013 and chest radiograph May 17, 2017. TECHNIQUE: Following IV administration of 86 mL of Optiray-320, helical axial images of the chest were obtained utilizing the pulmonary embolus protocol. Maximal intensity projections and sagittal and coronal reformats were viewed on an independent 3D workstation. IV contrast was administered without complication. A dose lowering technique was utilized adhering to the principles of ALARA. CT DOSE: 538.33 mGy.cm FINDINGS: No pulmonary emboli are identified although the segmental and subsegmental arteries are suboptimally assessed due to respiratory motion artifact. The heart is mildly enlarged. There is no pericardial effusion. There are no enlarged thoracic lymph nodes. No pneumothorax is present. There is no pleural effusion. Note is made of extensive bilateral lower lobe consolidation. There is no cavitation. There is no central obstructing mass. Bony thorax is unremarkable. The patient is status post gastric bypass. There is probable fatty infiltration of the liver. IMPRESSION: 1. No pulmonary emboli identified although segmental and subsegmental pulmonary arteries suboptimally assessed due to respiratory motion. 2. Extensive bilateral lower lobe consolidation consistent with pneumonia. The distribution raises the possibility of aspiration as the etiology. 3. Mild cardiomegaly. 4. Fatty liver. 5. Status post gastric bypass. Consultations: None Medication Reconciliation New Medications: Levofloxacin (Levofloxacin) 750 Mg Tab 750 MG PO DAILY for 4 Days, #4 TABS Ipratropium-Albuterol (Duoneb) 3 Ml Nebu 3 ML INH QIDR PRN for SOB/Wheezing for 30 Days, #120 DOSE Continued Medications: Albuterol Hfa (Ventolin Hfa) 200 Puffs/88893 Mcg Aers 2-4 PUFFS INH Q6H PRN for Shortness of Breath Albuterol Sulfate (Albuterol Sulfate) 1.25 Mg/3 Ml Neb 1 VIAL NEB Q4 PRN for Shortness of Breath Amitriptyline HCl (Amitriptyline HCl) 25 Mg Tab 25 MG PO HS for Pain Botulinum Toxin Type A (Botox) 200 Unit Inj 1 DOSE SQ DIRECTED EVERY 5-6 MONTHS FOR URINARY INCONTINENCE Carvedilol (Coreg) 6.25 Mg Tab 12.5 MG PO BID, TAB Cyanocobalamin (Vitamin B-12) 1,000 Mcg Tab 1000 MCG SQ MONTHLY, TAB Fluticasone Propionate (Inhala (Flovent Diskus) 100 Mcg/Blist Aer 1 PUFFS INH BID PRN for Shortness of Breath Lidocaine (Anorectal) (Lidocaine) 5 % Cre 1 APPLN TOP TID PRN for Itching Omeprazole (Prilosec) 20 Mg Capcr 20 MG PO QAM TAKE 30 MINUTES PRIOR TO FIRST MEAL OF THE DAY Pramipexole Dihydrochloride (Mirapex) 0.25 Mg Tab 0.5 MG PO HS Pregabalin (Lyrica) 75 Mg Cap 75 MG PO BID, CAP Simvastatin (Zocor) 20 Mg Tab 20 MG PO QPM, TAB Discharge Exam The patient reports feeling well. She is somewhat fatigued as she did not sleep well last night, stating the hospital CPAP mask was leaking. She denies any shortness of breath at rest but does have some dyspnea with exertion. She still has some non-productive cough. Her wheezing has improved. Constitutional: No fever, No chills, No sweats Eyes: No worsening of vision, No eye pain, No diplopia ENT: No hearing loss, No nasal symptoms, No trouble swallowing Respiratory: +Cough, wheezing improved, MAGDALENO. Cardiovascular: No chest pain, No claudication, No palpitations Abdomen: No pain, No nausea, No vomiting Musculoskeletal: No joint pain, No muscle pain, No swelling Genitourinary - Female: No dysuria, No urinary retention, No hematuria Neurologic: No paralysis, No weakness, No numbness/tingling Integumentary: No rash, No itch, No color change General appearance: +Morbidly obese. Well-developed, well-nourished, no apparent distress Head: Normocephalic, atraumatic Eyes: Normal inspection, PERRL, EOMI ENT: Normal ENT inspection, hearing grossly normal, pharynx normal Neck: Supple, no JVD, trachea midline Respiratory/Chest: +On room air. Mild wheezing, decreased breath sounds but improved. No respiratory distress Cardiovascular: Regular rate & rhythm, no gallop, no murmur Abdomen/GI: Normal bowel sounds, non-tender, soft Extremities/Musculoskeletal: +1+ pitting edema lower extremities bilaterally. Normal inspection, no calf tenderness Neurological/Psych: Alert, normal mood/affect, oriented x 3 Skin: Normal color, warm/dry, no rash Hospital Course 61 y/o female with a history of HTN, HLD, SVT, DM II, peripheral edema, asthma, CHELSIE on CPAP, RLS, GERD, and morbid obesity s/p recent gastric bypass (04/22/17) who presented to the ED on 05/27 with sudden onset shortness of breath, productive cough, and wheezing. Pt hypoxic on arrival with O2 sat 83% on room air, placed on 4L NC. Pt does not wear oxygen at home. Afebrile, other VSS. CXR shows multifocal pneumonia. EKG with inferior/lateral T wave abnormalities , troponin negative and no chest pain. BNP WNL. Potassium low at 3.1. ABG and other labs grossly unremarkable. Acute respiratory failure w/hypoxia, secondary to multifocal pneumonia-- improving -Admit to telemetry. No acute events overnight. Pt in SR with HR in 60s, no SVT. Stable, will transfer to med/surg -O2 by protocol. Patient back on room air. 2 step performed, does not require oxygen at rest or w/ambulation. -CTA negative for PE, findings consistent w/multifocal PNA -B/l lower extremity Doppler negative for DVT -Flu swab negative, MRSA nares negative -Continue Rocephin 1 gm IV qd and azithromycin 500 mg IV qd. Day #3 completed while inpatient. D/C with Levaquin x 4 more days -Blood cultures NGTD -DuoNEbs QIDR and q2h prn SOB/wheezing. D/C with DuoNebs QIDR prn Hypokalemia--resolved -Potassium 3.8 on 05/29 -KCL 20 mEq PO BID while inpatient. Recommend f/u as outpatient w/PCP -Hypomagnesemia resolved HTN, HLD, h/o SVT--stable -Continue Coreg 12.5 mg PO BID and Zocor 20 mg PO hs DM II w/neuropathy--last HgbA1c in hospital records from 2007. Pt had previously been on oral DM meds but stopped after bypass -Insulin sliding scale -Check BSGs q ac and qhs -HgbA1c 6.0 on 05/27 -Continue amitriptyline 25 mg PO hs and Lyrica 75 mg PO BID Peripheral edema--improving per pt since bypass, no longer on diuretics, Dopplers negative for DVT Mild intermittent asthma -Nebs as above CHELSIE -Continue CPAP RLS -Continue Mirapex 0.5 mg PO hs GERD -Prilosec converted to Protonix DVT prophylaxis -Enoxaparin 40 mg SC q24h -EDIS Sanchez Code Status -Level I, FULL RESUSCITATION STATUS Total Time Spent: Greater than 30 minutes This includes examination of the patient, discharge planning, medication reconciliation, and communication with other providers. Discharge Instructions Please refer to the electronic Patient Visit Report (Discharge Instructions) for additional information. Follow-Up With PCP within 1-2 weeks Needs repeat chest x-ray or chest CT in 3-4 weeks to ensure resolution -Should have follow-up BMP to ensure hypokalemia does not return Additional Copies To Saira Finley Reviewed: Pt Seen/Exam by Me History Physician Police Inspector supervision Note: I interviewed and examined the patient. Discussed with RA Olea and agree with findings and plan as documented in the note. Any exceptions or clarifications are listed here: Feeling much better, not coughing at all, no sputum production. She ambulated all around the hallways and only had minimal dyspnea when she was done. She did not get hypoxic at all will not require oxygen upon discharge. She is no longer having any pleuritic pain with deep inspiration. Remains afebrile. Vitals reviewed Gen: AAOx3, NAD, morbidly obese HEENT: anicteric sclerae, EOMI, mucous membranes moist, no thrush in the oropharynx CV: RRR no mgr nl S1S2 Pulm: Diminished breath sounds throughout due to body habitus, but otherwise much clearer with some very mild crackles at the bases bilaterally Abd: +BS soft NT ND no masses or hernias Ext: 1+ nonpitting edema of the legs bilaterally with chronic venous stasis changes and chronic blisters with woody edema of the left leg, 2+ DP pulses Skin: Chronic venous stasis changes as above, warm/dry, right AC fossa with very small 2-3 mm pustule at the site where her IV was without surrounding erythema-alcohol wipe was used to cleanse the area and a 20-gauge needle was used to unroofed the pustule with very minimal drainage removed. Dressing placed Neuro: full strength throughout This patient is a 61-year-old female with a history of morbid obesity, peripheral edema, now diet controlled DM 2, HTN, HLD, SVT, asthma, CHELSIE on CPAP, RLS, GERD, and s/p recent gastric bypass (04/22/17) who presented to the ED on with sudden onset shortness of breath, productive cough, and wheezing. Pt with acute hypoxic respiratory failure on arrival with O2 sat 83% on room air and with tachypnea, was placed on 4L NC. Pt does not wear oxygen at home. Afebrile, other VSS. CXR shows multifocal pneumonia. EKG with inferior/ lateral T wave abnormalities, troponin negative and no chest pain. BNP WNL. Potassium low at 3.1. ABG and other labs grossly unremarkable. ECG now without ischemic changes, troponin neg x 2 PNA symptoms significantly improved and is now weaned completely off oxygen even with ambulation. -CTA chest negative for large PE, venous Dopplers negative, no chest pain and acute hypoxic respiratory failure and dyspnea likely secondary to multifocal pneumonia-no further workup for PE needed at this time -Received Rocephin and azithromycin for 3 days and well go home on Levaquin for 4 more days p.o. -Repeat chest x-ray or chest CT in 3-4 weeks to ensure resolution of significant infiltrate -not able to produce sputum for culture, follow blood cultures after discharge but were no growth to date or greater than 48 hours -Replaced potassium as it was quite low on admission due to illness and decreased p.o. intake-should have BMP rechecked as an outpatient but does not require further supplementation -Continue CPAP for her CHELSIE at home Stable for discharge to home Documented By: Chelle Ashton
== END 2017-05-29 16:34 | disposition home or self-care (01) | DRG 193 ==
LOC: C.EDB 07:11 → C.MED 10:30 → ENRESERV 10:59
PROVIDERS: ADMIT Family Medicine; ATTEND Family Medicine
DX: J18.9 Pneumonia, unspecified organism (principal); J96.01 Acute respiratory failure with hypoxia; I47.1 Supraventricular tachycardia; Z68.42 Body mass index [BMI] 45.0-49.9, adult; Z87.891 Personal history of nicotine dependence; I10 Essential (primary) hypertension; E78.5 Hyperlipidemia, unspecified; R60.9 Edema, unspecified; G47.33 Obstructive sleep apnea (adult) (pediatric); G25.81 Restless legs syndrome; K21.9 Gastro-esophageal reflux disease without esophagitis; E66.01 Morbid (severe) obesity due to excess calories; E87.6 Hypokalemia; E11.40 Type 2 diabetes mellitus with diabetic neuropathy, unspecified; J45.20 Mild intermittent asthma, uncomplicated; D64.9 Anemia, unspecified; E83.42 Hypomagnesemia

== ENCOUNTER → 2017-06-24 | Outpatient (CLI) | payer OTHER ==
[~2017-06-24] MED LIST changes: +IPRASOL4 INH; +LVQ750 PO
--- NOTE | 2017-06-24 10:43 | DIAGNOSTIC IMAGING REPORT ---
CHEST 2 VIEWS ROUTINE CLINICAL HISTORY: 61 years-old Female presenting with J18.8, R06.02, R09.02 pneumonia for 3 weeks, follow-up. TECHNIQUE: PA and lateral views of the chest were obtained. COMPARISON: 05/27/2017. FINDINGS: Atherosclerosis of the aortic arch. Cardiac silhouette top normal in size. Complete interval resolution of patchy mid to basilar predominant bilateral pulmonary opacities. No new focal opacity. No pleural effusion or pneumothorax. Degenerative changes of the thoracic spine. Cholecystectomy clips noted. IMPRESSION: 1. Interval resolution of previously noted mid to basilar predominant bilateral pulmonary infiltrates. No acute cardiopulmonary disease. Electronically signed by: Andre Zepeda M.D. 06/24/2017 10:42 AM Dictated Date/Time: 06/24/2017 10:41 AM
== END | disposition home or self-care (01) ==
LOC: C.RAD1850 09:42
PROVIDERS: ATTEND Nurse Practitioner Family
DX: J18.8 Other pneumonia, unspecified organism (principal); R06.02 Shortness of breath; R09.02 Hypoxemia

== ENCOUNTER → 2017-06-29 | Outpatient (CLI) | payer OTHER ==
--- NOTE | 2017-06-29 11:09 | DIAGNOSTIC IMAGING REPORT ---
R SHOULDER MIN 2 VIEWS ROUTINE CLINICAL HISTORY: 61 years-old Female presenting with E11.618 Z98.84, bilateral shoulder pain. TECHNIQUE: Internal rotation, external rotation, Grashey views of the right shoulder were obtained. COMPARISON: 06/23/2016. FINDINGS: Glenohumeral and acromioclavicular joints congruent. Mild degenerative changes of the acromioclavicular joint with inferior osteophytosis/bony spurring evident similar to prior exam. No acute fracture or malalignment. No subluxation or deformity of the humeral head. Surrounding soft tissues are radiographically normal. Visualized portion of the right hemithorax normal. IMPRESSION: 1. Findings consistent with degenerative changes at the acromioclavicular joint with significant inferior bony spurring. This could suggest impingement of the rotator cuff. 2. No acute osseous injury. Electronically signed by: Andre Zepeda M.D. 06/29/2017 11:07 AM Dictated Date/Time: 06/29/2017 11:06 AM
--- NOTE | 2017-06-29 11:10 | DIAGNOSTIC IMAGING REPORT ---
L SHOULDER MIN 2 VIEWS ROUTINE CLINICAL HISTORY: E11.618 Z98.84 LEFT SHOULDER PAIN COMPARISON: None. DISCUSSION: No acute fractures or dislocations are visualized. There are small nonspecific calcifications along the undersurface of the acromion. No destructive lesions are visualized. IMPRESSION: 1. No acute fractures or dislocations 2. Nonspecific subacromial calcifications Electronically signed by: Jayden Gabriel M.D. 06/29/2017 11:08 AM Dictated Date/Time: 06/29/2017 11:07 AM
== END | disposition home or self-care (01) ==
LOC: C.RAD1850 10:28
PROVIDERS: ATTEND Nurse Practitioner Family
DX: E11.618 Type 2 diabetes mellitus with other diabetic arthropathy (principal); Z98.84 Bariatric surgery status

== ENCOUNTER → 2017-08-10 | Day surgery (SDC) | payer OTHER ==
[2017-05-14 13:40] VITALS: BMI 48.0
[2017-07-24 12:12] VITALS: Ht 171.5 cm; Wt 138.6 kg
[~2017-08-10] VITALS: Ht 171.5 cm; Wt 138.6 kg
[~2017-08-10] MED LIST changes: +BUPIVACAINE 0.25% 2.5MG/ML PF 10 ML VIAL ONE; +BUPIVACAINE 0.25% 30 ML VIAL INJ ONE; +CALC1TAB9 PO; +CHOL1000 PO; -IPRASOL4 INH; +LIDOCAINE HCL 1% MPF 5 ML VIAL INJ ONE; +LIDOCAINE HCL 1% MPF 5 ML VIAL ONE; -LVQ750 PO; +PEDI1CHW82 PO
--- NOTE | 2017-08-10 13:39 | [facility] Post Operative Brief Note ---
Immediate Operative Summary Operative Date August 10, 2017. Pre-Operative Diagnosis Low back pain Post-Operative Diagnosis Same Procedure(s) Performed Bilateral L5-S1 Medial Branch Block Surgeon Dr. Tamara Box Disintegrator Operator Surgeon(s) None Estimated Blood Loss 0 Findings Consistent with Post-Op Diagnosis Specimens NA Drains None Anesthesia Type Local Complication(s) none Disposition Disposition:
--- NOTE | 2017-08-10 13:40 | Discharge Instructions ---
Discharge Instructions Date of Service August 10, 2017. Visit Reason for Visit: Low Back Pain Discharge Discharge Diagnosis / Problem: low back pain Discharge Goals Goal(s): Decrease discomfort, Improve function Activity Recommendations Activity Limitations: resume your previous activity Anesthesia . Post Anesthesia Instructions: If you have had General Anesthesia or IV Sedation: * Do not drive today. * Resume driving when surgeon permits. * Do not make important decisions or sign legal documents today. * Call surgeon for: 1. Temperature elevations greater than 101 degrees F. 2. Uncontrollable pain. 3. Excessive bleeding. 4. Persistent nausea and vomiting. 5. Medication intolerance (nausea, vomiting or rash). * For nausea and vomiting use only clear liquids such as: tea, soda, bouillon until nausea subsides, then gradually increase diet as tolerated. * If you have any concerns or questions, call your surgeon's office. If physician is unavailable and it is an emergency, call 911 or go to the nearest emergency room. . Diet Recommendations Recommended Home Diet: resume previous diet Procedures Procedures Performed: Bilateral L5-S1 Medial Branch Block Pending Studies Studies pending at discharge: no Medical Emergencies . Who to Call and When: Medical Emergencies: If at any time you feel your situation is an emergency, please call 911 immediately. . Non-Emergent Contact Non-Emergency issues call your: Specialist . . "Provider Documentation" section prepared by Richie Box. .
[2017-08-10 14:01] VITALS: BP 136/65; PULSE 57; O2SAT 99
== END | disposition home or self-care (01) ==
LOC: X.SURG 12:40
PROVIDERS: ATTEND Physical Medicine & Rehabilitation
DX: M47.817 Spondylosis without myelopathy or radiculopathy, lumbosacral region (principal); J45.909 Unspecified asthma, uncomplicated; Z98.84 Bariatric surgery status; Z90.710 Acquired absence of both cervix and uterus; Z96.653 Presence of artificial knee joint, bilateral; Z85.828 Personal history of other malignant neoplasm of skin; Z80.0 Family history of malignant neoplasm of digestive organs; Z80.49 Family history of malignant neoplasm of other genital organs

== ENCOUNTER → 2017-08-18 | Outpatient (CLI) | payer OTHER ==
[~2017-08-18] MED LIST changes: -BUPIVACAINE 0.25% 2.5MG/ML PF 10 ML VIAL ONE; -BUPIVACAINE 0.25% 30 ML VIAL INJ ONE; +GADAVIST IV PRN; -LIDOCAINE HCL 1% MPF 5 ML VIAL INJ ONE; -LIDOCAINE HCL 1% MPF 5 ML VIAL ONE; -PRLSR20 PO
--- NOTE | 2017-08-18 14:01 | DIAGNOSTIC IMAGING REPORT ---
FLUOROSCOPICALLY GUIDED RIGHT SHOULDER ARTHROGRAM PRIOR TO MRI CLINICAL HISTORY: Right shoulder pain. COMPARISON STUDY: Right shoulder radiographs June 29, 2017. Fluoroscopy time: 28 seconds. PROCEDURE: The procedure, risks and benefits were discussed with the patient. The patient agreed to the procedure and informed written consent was obtained. The procedure was performed by Dr. Mendez following a timeout. Skin overlying the right glenohumeral joint was prepped and draped in sterile fashion and local anesthesia was achieved with 1% lidocaine. Under intermittent fluoroscopic guidance, a 3 1/2 inch 22-gauge spinal needle was directed into the right glenohumeral joint. Positioning within the joint space was confirmed with injection of a small amount of contrast. At this time, 10 cc of a mixture of 0.05 cc of gadolinium, 10 cc of Optiray 300 cc and 10 cc of normal saline was injected into the right glenohumeral joint. The needle was removed. The patient tolerated the procedure well and no immediate complications were evident. Fluoroscopic images demonstrate apparent filling defects within the joint space. IMPRESSION: Fluoroscopically guided right shoulder arthrogram prior to MRI. Electronically signed by: Walter Mendez M.D. 08/18/2017 2:00 PM Dictated Date/Time: 08/18/2017 1:58 PM
--- NOTE | 2017-08-18 17:50 | DIAGNOSTIC IMAGING REPORT ---
R UPPER EXT JOINT WITH CLINICAL HISTORY: 62 years-old Female with SHOULDER. Chronic right shoulder pain. COMPARISON: Right shoulder radiographs 06/29/2017 TECHNIQUE: Multiplanar, multi sequence MRI of the right shoulder was performed without intravenous contrast. FINDINGS: The study is mildly motion degraded. ROTATOR CUFF: High-grade partial to full-thickness equivalent tear of the anterior and mid insertional supraspinatus tendon measures 1.2 x 1.5 cm in transverse and AP dimensions. Low-grade partial-thickness tearing involves the articular and interstitial portions of the posterior supraspinatus tendon. Moderate supraspinatus tendinosis. No retraction or muscular atrophy. Mild tendinosis of the infraspinatus tendon without high-grade partial or full-thickness tear identified. Teres minor appears intact. Moderate tendinosis of the subscapularis tendon without discrete tear identified. The rotator cuff musculature is normal in morphology and signal. BICEPS TENDON: The long head biceps tendon appears very diminutive with the intertubercular groove, image 10 series 4 with ill-defined split tear noted within the intertubercular groove on image 12 series 4. Distally to this area the long head biceps tendon is not well seen. LABRUM: There is fraying and irregularity involving both the superior and inferior labrum suggesting areas of chronic tearing. There is no evidence for a paralabral cyst. GLENOHUMERAL JOINT: Mild joint space narrowing with low-grade chondromalacia. Minimal debris is noted layering within the axillary recess, image 15 series 7. ACROMIOCLAVICULAR JOINT: Mild degenerative changes about the AC joint with mild caudal spurring, better seen on comparison radiographs. Coracohumeral interval measures 7 mm. No evidence of os acromiale. OUTLET SPACES: The suprascapular notch and quadrilateral space are without obstructing or space occupying lesions. BONE MARROW: No focal abnormality, fracture or marrow occupying lesion. SOFT TISSUES: The periarticular soft tissues are unremarkable. IMPRESSION: 1. High-grade partial to full-thickness equivalent tear of the anterior and mid insertional supraspinatus tendon with moderate supraspinatus tendinosis. 2. Moderate tendinosis of the subscapularis tendon without full-thickness tear identified. 3. Diminutive appearance of the long head biceps tendon with suggested split tear within the intertubercular groove. 4. 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 The above report was generated using voice recognition software. It may contain grammatical, syntax or spelling errors. Electronically signed by: Eron Boggs M.D. 08/18/2017 5:48 PM Dictated Date/Time: 08/18/2017 2:09 PM
== END | disposition home or self-care (01) ==
LOC: C.MRIBC 12:46
PROVIDERS: ATTEND Physical Medicine & Rehabilitation Sports Medicine
DX: M75.101 Unspecified rotator cuff tear or rupture of right shoulder, not specified as traumatic (principal); E11.618 Type 2 diabetes mellitus with other diabetic arthropathy; M25.511 Pain in right shoulder

== ENCOUNTER → 2017-10-16 | Outpatient (CLI) | payer OTHER ==
[~2017-10-16] MED LIST changes: +FERR325T18 PO; -GADAVIST IV PRN; -PEDI1CHW82 PO; +TORS10TA14 PO; +[UNRECOGNIZED DRUG - CODE] PO
== END | disposition home or self-care (01) ==
LOC: C.LABSPEC 15:27
PROVIDERS: ATTEND Nurse Practitioner Adult Health
DX: R33.9 Retention of urine, unspecified (principal)

== ENCOUNTER → 2017-10-19 | Outpatient (CLI) | payer OTHER ==
[~2017-10-19] MED LIST changes: +OMEP40CA41 PO
[2017-10-19 15:45] LABS: BASO % 0.2 %; BASO ABS # 0.02 K/uL (0-0.2); EOS % 0.3 %; EOS ABS # 0.03 K/uL (0-0.5); HEMATOCRIT 27.2 % (37-47); HEMOGLOBIN 9.1 g/dL (12.0-16.0); IG# 0.01 K/uL (0.00-0.02); LYMPH % 14.8 %; LYMPH ABS # 1.31 K/uL (1.2-3.4); MEAN CELL VOLUME 91.9 fL (80-100); MEAN CORPUSCULAR HEMOGLOBIN 30.7 pg (25-34); MEAN CORPUSCULAR HGB CONC 33.5 g/dl (32-36); MEAN PLATELET VOLUME 11.4 fL (7.4-10.4); MONO % 8.9 %; MONO ABS # 0.79 K/uL (0.11-0.59); NEUT % 75.7 %; NEUT ABS # 6.67 K/uL (1.4-6.5); PLATELET COUNT 297 K/uL (130-400); RED CELL DISTRIBUTION WIDTH CV 13.9 % (11.5-14.5); RED CELL DISTRIBUTION WIDTH SD 46.4 fL (36.4-46.3); WHITE BLOOD COUNT 8.83 K/uL (4.8-10.8)
[2017-10-19 15:53] LABS: PTT PATIENT 32.4 SECONDS (21.0-31.0)
[2017-10-19 16:06] LABS: BLOOD UREA NITROGEN 20 mg/dl (7-18); CALCIUM 8.9 mg/dl (8.5-10.1); CARBON DIOXIDE 30 mmol/L (21-32); CREATININE 0.75 mg/dl (0.60-1.20); GLUCOSE 118 mg/dl (70-99); POTASSIUM 3.7 mmol/L (3.5-5.1); SODIUM 138 mmol/L (136-145)
[2017-10-20 06:13] LABS: HEMOGLOBIN A1C 6.6 % (4.5-5.6)
== END | disposition home or self-care (01) ==
LOC: C.CPL 07:11
PROVIDERS: ATTEND Physical Medicine & Rehabilitation Sports Medicine
DX: Z01.812 Encounter for preprocedural laboratory examination (principal)

== ENCOUNTER → 2017-10-27 | Day surgery (SDC) | payer OTHER ==
[2017-10-26 10:11] VITALS: BMI 40.0
[~2017-10-27] VITALS: Ht 172.7 cm; Wt 119.5 kg
[~2017-10-27] MED LIST changes: +FENTANYL CITRATE INJ 50 MCG/1 ML 2 ML VIAL ONE; +LIDOCAINE HCL 2% 2 ML VIAL (20MG/ML) ONE; +PROPOFOL IV EMULSION 10 MG/ML 20 ML VIAL ONE; +SODIUM CHLORIDE 0.9% 500ML 500 ML IV ONE
[2017-10-27 12:06] VITALS: Ht 172.7 cm; Wt 119.5 kg
--- NOTE | 2017-10-27 12:25 | Endo History and Physical ---
History & Physical Date of Service: Oct 27, 2017. Chief Complaint: NAUSEA AND ABDOMINAL CRAMPING Referring Physician: JAZZY RAYMUNDO History of Present Illness pt with abdominal pain and nausea Past Surgical History Hx Cardiac Surgery: No Hx Internal Defibrillator: No Hx Pacemaker: No Hx Abdominal Surgery: Yes (BOB BSO, GASTRIC BYPASS/HERNIA MAR 2017) Hx Post-Op Nausea and Vomiting: No Hx Cancer Surgery: Yes (SKIN CA REMOVED FROM FACE) Hx Thoracic Surgery: No Hx Orthopedic: Yes (BILAT TKA) Hx Urinary Tract Surgery: No Family History Polyp Social History Smoking Status: Former Smoker Hx Substance Use: No Hx Alcohol Use: No Allergies Coded Allergies: Atenolol (Verified Allergy, Mild, RASH, 10/27/17) Benazepril (Verified Adverse Reaction, Mild, COUGH, 10/27/17) Current Medications Reported Home Medications Medications Dose Route/Sig Max Daily Dose Days Date Category Dose Instructions Ferrous Gluconate 324 Mg Tab 324 Mg PO QAM 10/15/17 Reported time release Demadex (Torsemide) 10 Mg Tab 10 Mg PO QAM 10/15/17 Reported Centrum Kids Complete (Pediatric Multiple Vitamin W/) 1 Chw Chw 1 Tab PO BID 10/15/17 Reported Vitamin D3 (Cholecalciferol) 1,000 Unit Tab 1 Tab PO BID 07/24/17 Reported Citracal + D3 Maximum (Calcium Citrate-Vitamin D) 1 Tab Tab 2 Tab PO BID 07/24/17 Reported Lyrica (Pregabalin) 75 Mg Cap 75 Mg PO BID 05/14/17 Reported Coreg (Carvedilol) 6.25 Mg Tab 12.5 Mg PO BID 03/09/17 Reported Vitamin B-12 (Cyanocobalamin) 1,000 Mcg Tab 1,000 Mcg SQ MONTHLY 09/23/16 Reported Albuterol Sulfate 1.25 Mg/3 Ml Neb 1 Vial NEB Q4 PRN 09/23/16 Reported Ventolin Hfa (Albuterol) 200 Puffs/05818 Mcg Aers 2-4 Puffs INH Q6H PRN 09/23/16 Reported Flovent Diskus (Fluticasone Propionate (Inhala) 100 Mcg/Blist Aer 1 Puffs INH BID PRN 09/23/16 Reported Amitriptyline HCl 25 Mg Tab 25 Mg PO HS 09/23/16 Reported Mirapex (Pramipexole Dihydrochloride) 0.25 Mg Tab 0.5 Mg PO HS 09/23/16 Reported Lidocaine (Lidocaine (Anorectal)) 5 % Cre 1 Appln TOP TID PRN 09/23/16 Reported Zocor (Simvastatin) 20 Mg Tab 20 Mg PO QPM 09/23/16 Reported Vital Signs Weight (Kilograms): 119.55 Height (Feet): 5 Height (Inches): 8 Date Time Temp Pulse Resp B/P (MAP) Pulse Ox O2 Delivery O2 Flow Rate FiO2 10/27/17 12:11 36.9 63 18 160/79 (106) 93 Room Air Physical Exam General Appearance: no apparent distress Respiratory/Chest: Auscultation: breath sounds normal Cardiovascular: Heart Auscultation: RRR Abdomen: Inspection & Palpation: soft Liver: non-tender Assessment and Plan stable for EGD
--- NOTE | 2017-10-27 12:55 | Discharge Instructions ---
Endoscopy Patient Instructions Date / Procedure(s) Performed Oct 27, 2017. EGD Allergy Information Coded Allergies: Atenolol (Verified Allergy, Mild, RASH, 10/27/17) Benazepril (Verified Adverse Reaction, Mild, COUGH, 10/27/17) Discharge Date / Findings Oct 27, 2017. post anastomotic ulcer Provider Instructions Activity Restrictions - No exercising or heavy lifting for 24 hours. - Do not drink alcohol the day of the procedure. - Do not drive a car or operate machinery until the day after the procedure. - Do not make any important decisions or sign important papers in 24 hours after the procedure. Following Day: - Return to full activity which may include returning to work/school. Diet Start your diet with liquids and light foods (jello, soup, juice, toast). Then eat your usual diet if not nauseated. Treatment For Common After Affects For mild abdominal pain, bloating, or excessive gas: - Rest - Eat lightly - Lie on right side Follow-Up Information Follow-up with JAZZY RAYMUNDO as scheduled Anesthesia Information What You Should Know You have had a procedure that required some medicine to reduce anxiety and discomfort. This treatment is called moderate sedation. After receiving the treatment, you may be sleepy, but you will be able to breathe on your own. The effects of the treatment may last for several hours. Follow these instructions along with Activity/Diet recommendations noted above: * Do NOT do anything where dizziness or clumsiness would be dangerous. * Rest quietly at home today, then you can be up and about tomorrow. * Have a responsible person stay with you the rest of today. * You may have had an I.V. today. If so, you may take the dressing off later today. Recommendations Call your doctor if: * Trouble breathing * Continuous vomiting for more than 24 hours * Temperature above 101 degrees * Severe abdominal pain or bloating * Pain not relieved by pain medicine ordered * There is increased drainage or redness from any incision * A large amount of rectal bleeding greater than 2-3 tablespoons. (If you had a polyp/s removed or have hemorrhoids, a small amount of blood - from the rectum is to be expected.) * You have any unanswered questions or concerns. IN THE EVENT OF A SERIOUS EMERGENCY, GO TO THE NEAREST EMERGENCY ROOM Your discharge instructions were prepared by provider Froy Gonzalez. Patient Instructions Signature Page Andira Dove Patient (or Guardian) Signature/Date: I have read and understand the instructions given to me by my caregivers. Caregiver/RN/Doctor Signature/Date: The above-named patient and/or guardian has received patient instructions on this date. + Original Patient Signature Page (only) stays with chart. Please make copy for patient.
[2017-10-27 13:27] VITALS: BP 149/88; PULSE 56; O2SAT 98
--- NOTE | 2017-10-27 13:28 | GI REPORT ---
Patient Name: Andria Dove Procedure Date: 10/27/2017 12:27 PM Date of : 1955 Admit Type: Outpatient Age: 62 Gender: Female Attending MD: Froy Gonzalez MD Procedure: Upper GI endoscopy Providers: Froy Gonzalez MD Referring MD: Alexander Guzman Indications: Epigastric abdominal pain, Nausea Medicines: See the Anesthesia note for documentation of the administered medications Complications: No immediate complications. Estimated Blood Loss: Estimated blood loss: none. Procedure: Pre-Anesthesia Assessment: - Prior to the procedure, a History and Physical was performed, and patient medications, allergies and sensitivities were reviewed. The patient's tolerance of previous anesthesia was reviewed. - The risks and benefits of the procedure and the sedation options and risks were discussed with the patient. All questions were answered and informed consent was obtained. - Patient identification and proposed procedure were verified prior to the procedure by the physician and the nurse. The procedure was verified in the pre-procedure area. - Pre-procedure physical examination revealed no contraindications to sedation. - After reviewing the risks and benefits, the patient was deemed in satisfactory condition to undergo the procedure. After obtaining informed consent, the endoscope was passed under direct vision. Throughout the procedure, the patient's blood pressure, pulse, and oxygen saturations were monitored continuously. The scope was introduced through the mouth, and advanced to the jejunum. The upper GI endoscopy was accomplished without difficulty. The patient tolerated the procedure well. Findings: The esophagus was normal. Evidence of a gastric bypass was found. A normal gastric pouch was found. The staple line appeared intact. The gastrojejunal anastomosis was characterized by healthy appearing mucosa on the gastric side. The jejunojejunal anastomosis was characterized by large deep ulceration on jejunal side. One non-bleeding cratered ulcer was found distal to the gastrojejunal anastomosis. Impression: - Normal esophagus. - Gastric bypass with intact staple line. Gastrojejunal anastomosis characterized by healthy appearing mucosa. - One large and deep non-bleeding post anastomotic jejunal ulcer. - No specimens collected. Recommendation: - Use Prilosec (omeprazole) 40 mg PO daily indefinitely. - I will arrange a repeat EGD in 4 weeks to confirm healing. - Discharge patient to home. Froy S. Gonzalez, M.Sabiha Gonzalez MD 10/27/2017 1:27:53 PM This report has been signed electronically. Note Initiated On: 10/27/2017 12:27 PM Number of Addenda: 0 I attest to the content of the Intraoperative Record and orders documented therein, exceptions below {[id number]}
--- NOTE | 2017-10-27 14:03 | Anesthesiology Progress Note ---
Anesthesia Post Op Note Date & Time Oct 27, 2017 at 14:03 Vital Signs Pain Intensity: 0 Vital Signs Past 12 Hours Date Time Temp Pulse Resp B/P (MAP) Pulse Ox O2 Delivery O2 Flow Rate FiO2 10/27/17 13:27 56 18 149/88 (108) 98 Room Air 10/27/17 13:12 52 16 155/79 (104) 100 Room Air 10/27/17 12:54 36.9 51 14 139/80 (99) 100 Room Air 10/27/17 12:11 36.9 63 18 160/79 (106) 93 Room Air Notes Mental Status: alert / awake / arousable, participated in evaluation Pt Amnestic to Procedure: Yes Nausea / Vomiting: adequately controlled Pain: adequately controlled Airway Patency, RR, SpO2: stable & adequate BP & HR: stable & adequate Hydration State: stable & adequate Anesthetic Complications: no major complications apparent
== END | disposition home or self-care (01) ==
LOC: C.GI 11:48
PROVIDERS: ATTEND Internal Medicine Gastroenterology
DX: R10.13 Epigastric pain (principal); R11.0 Nausea; K28.9 Gastrojejunal ulcer, unspecified as acute or chronic, without hemorrhage or perforation; I10 Essential (primary) hypertension; Z98.84 Bariatric surgery status; Z88.8 Allergy status to other drugs, medicaments and biological substances; Z79.899 Other long term (current) drug therapy; F17.200 Nicotine dependence, unspecified, uncomplicated; E66.9 Obesity, unspecified; Z68.41 Body mass index [BMI] 40.0-44.9, adult; Z83.71 Family history of colonic polyps

== ENCOUNTER → 2017-10-30 | Outpatient (CLI) | payer OTHER ==
[~2017-10-30] MED LIST changes: -BTLAI200 SQ; -FENTANYL CITRATE INJ 50 MCG/1 ML 2 ML VIAL ONE; -LIDOCAINE HCL 2% 2 ML VIAL (20MG/ML) ONE; -PROPOFOL IV EMULSION 10 MG/ML 20 ML VIAL ONE; -SODIUM CHLORIDE 0.9% 500ML 500 ML IV ONE
--- NOTE | 2017-11-02 15:10 | MAMMOGRAPHY REPORT ---
BILATERAL DIGITAL SCREENING MAMMOGRAM TOMOSYNTHESIS WITH CAD: 10/30/2017 CLINICAL HISTORY: Routine screening. Patient has no complaints. TECHNIQUE: The study was acquired using full field digital technology and interpreted from soft copy. Breast tomosynthesis in addition to standard 2D mammography was performed. Current study was also ev aluated with a Computer Aided Detection (CAD) system. COMPARISON: Comparison is made to exams dated: 09/24/2016 mammogram, 09/24/2015 mammogram, 09/20/2014 m ammogram, 05/26/2012 mammogram - [facility], 06/23/2008, and 06/23/2007. BREAST COMPOSITION: The tissue of both breasts is almost entirely fatty. FINDINGS: No suspicious masses, calcifications, or areas of architectural distortion are noted in either breast . There has been no significant interval change compared to prior exams. IMPRESSION: ACR BI-RADS CATEGORY 1: NEGATIVE There is no mammographic evidence of malignancy. A 1 year screening mammogram is recommended.( 019) The patient will receive written notification of the results. Some breast cancers are not detected with mammography. A negative mammographic report should not ricardo y biopsy if a clinically suggestive mass is present. Donna Silva M.D. ah/:10/30/2017 15:53:27 Call Center Consultant: Lorrie Casarez, [facility] letter sent: Normal 1/2 BI-RADS Code: ACR BI-RADS Category 1: Negative
== END | disposition home or self-care (01) ==
LOC: C.MAMM 15:21
PROVIDERS: ATTEND Nurse Practitioner Family
DX: Z12.31 Encounter for screening mammogram for malignant neoplasm of breast (principal)

== ENCOUNTER → 2017-11-11 | Day surgery (SDC) | payer OTHER ==
[2017-10-26 10:30] VITALS: BMI 40.0
[~2017-11-11] VITALS: Ht 172.7 cm; Wt 119.5 kg
[~2017-11-11] MED LIST changes: +LIDOCAINE HCL 2% 2 ML VIAL (20MG/ML) ONE; +PROPOFOL IV EMULSION 10 MG/ML 20 ML VIAL ONE; +SODIUM CHLORIDE 0.9% 500ML 500 ML IV ONE
[2017-11-11 12:39] VITALS: Ht 172.7 cm; Wt 119.5 kg
--- NOTE | 2017-11-11 13:12 | Endo History and Physical ---
History & Physical Date of Service: Nov 11, 2017. Chief Complaint: SCREENING FOR COLON CANCER Referring Physician: DR SCHAEFER History of Present Illness colon screen- mother with CRC Past Surgical History Hx Cardiac Surgery: No Hx Internal Defibrillator: No Hx Pacemaker: No Hx Abdominal Surgery: Yes (BOB BSO, GASTRIC BYPASS/HERNIA MAR 2017) Hx Post-Op Nausea and Vomiting: No Hx Cancer Surgery: Yes (SKIN CA REMOVED FROM FACE) Hx Thoracic Surgery: No Hx Orthopedic: Yes (BILAT TKA) Hx Urinary Tract Surgery: No Family History Polyp Social History Smoking Status: Former Smoker Hx Substance Use: No Hx Alcohol Use: No Allergies Coded Allergies: Atenolol (Verified Allergy, Mild, RASH, 10/27/17) Benazepril (Verified Adverse Reaction, Mild, COUGH, 10/27/17) Current Medications Reported Home Medications Medications Dose Route/Sig Max Daily Dose Days Date Category Dose Instructions Prilosec (Omeprazole) 40 Mg Cap 40 Mg PO DAILY 10/29/17 Reported Ferrous Gluconate 324 Mg Tab 324 Mg PO QAM 10/15/17 Reported time release Demadex (Torsemide) 10 Mg Tab 10 Mg PO QAM 10/15/17 Reported Centrum Kids Complete (Pediatric Multiple Vitamin W/) 1 Chw Chw 1 Tab PO BID 10/15/17 Reported Vitamin D3 (Cholecalciferol) 1,000 Unit Tab 1 Tab PO BID 07/24/17 Reported Citracal + D3 Maximum (Calcium Citrate-Vitamin D) 1 Tab Tab 2 Tab PO BID 07/24/17 Reported Lyrica (Pregabalin) 75 Mg Cap 75 Mg PO BID 05/14/17 Reported Coreg (Carvedilol) 6.25 Mg Tab 12.5 Mg PO BID 03/09/17 Reported Vitamin B-12 (Cyanocobalamin) 1,000 Mcg Tab 1,000 Mcg SQ MONTHLY 09/23/16 Reported Albuterol Sulfate 1.25 Mg/3 Ml Neb 1 Vial NEB Q4 PRN 09/23/16 Reported Ventolin Hfa (Albuterol) 200 Puffs/83382 Mcg Aers 2-4 Puffs INH Q6H PRN 09/23/16 Reported Flovent Diskus (Fluticasone Propionate (Inhala) 100 Mcg/Blist Aer 1 Puffs INH BID PRN 09/23/16 Reported Amitriptyline HCl 25 Mg Tab 25 Mg PO HS 09/23/16 Reported Mirapex (Pramipexole Dihydrochloride) 0.25 Mg Tab 0.5 Mg PO HS 09/23/16 Reported Lidocaine (Lidocaine (Anorectal)) 5 % Cre 1 Appln TOP TID PRN 09/23/16 Reported Zocor (Simvastatin) 20 Mg Tab 20 Mg PO QPM 09/23/16 Reported Vital Signs Weight (Kilograms): 119.50 Height (Feet): 5 Height (Inches): 8 Date Time Temp Pulse Resp B/P (MAP) Pulse Ox O2 Delivery O2 Flow Rate FiO2 11/11/17 12:38 36.5 57 18 182/63 (102) 95 Room Air Physical Exam General Appearance: WD/WN, no apparent distress Respiratory/Chest: Auscultation: breath sounds normal Cardiovascular: Heart Auscultation: RRR Abdomen: Bowel Sounds: normal Inspection & Palpation: soft, non-distended, no tenderness, guarding & rebound Assessment and Plan colonoscopy
--- NOTE | 2017-11-11 14:02 | Discharge Instructions ---
Endoscopy Patient Instructions Date / Procedure(s) Performed Nov 11, 2017. Colonoscopy Allergy Information Coded Allergies: Atenolol (Verified Allergy, Mild, RASH, 10/27/17) Benazepril (Verified Adverse Reaction, Mild, COUGH, 10/27/17) Discharge Date / Findings Nov 11, 2017. colon polyps removed by snare Medication Instructions Stopped Medication(s): IRON LAST DOSE 11/09/17 Restart Stopped Medication(s): Reported Home Medications Medications Dose Route/Sig Max Daily Dose Days Date Category Dose Instructions Prilosec (Omeprazole) 40 Mg Cap 40 Mg PO DAILY 10/29/17 Reported Ferrous Gluconate 324 Mg Tab 324 Mg PO QAM 10/15/17 Reported time release Demadex (Torsemide) 10 Mg Tab 10 Mg PO QAM 10/15/17 Reported Centrum Kids Complete (Pediatric Multiple Vitamin W/) 1 Chw Chw 1 Tab PO BID 10/15/17 Reported Vitamin D3 (Cholecalciferol) 1,000 Unit Tab 1 Tab PO BID 07/24/17 Reported Citracal + D3 Maximum (Calcium Citrate-Vitamin D) 1 Tab Tab 2 Tab PO BID 07/24/17 Reported Lyrica (Pregabalin) 75 Mg Cap 75 Mg PO BID 05/14/17 Reported Coreg (Carvedilol) 6.25 Mg Tab 12.5 Mg PO BID 03/09/17 Reported Vitamin B-12 (Cyanocobalamin) 1,000 Mcg Tab 1,000 Mcg SQ MONTHLY 09/23/16 Reported Albuterol Sulfate 1.25 Mg/3 Ml Neb 1 Vial NEB Q4 PRN 09/23/16 Reported Ventolin Hfa (Albuterol) 200 Puffs/64335 Mcg Aers 2-4 Puffs INH Q6H PRN 09/23/16 Reported Flovent Diskus (Fluticasone Propionate (Inhala) 100 Mcg/Blist Aer 1 Puffs INH BID PRN 09/23/16 Reported Amitriptyline HCl 25 Mg Tab 25 Mg PO HS 09/23/16 Reported Mirapex (Pramipexole Dihydrochloride) 0.25 Mg Tab 0.5 Mg PO HS 09/23/16 Reported Lidocaine (Lidocaine (Anorectal)) 5 % Cre 1 Appln TOP TID PRN 09/23/16 Reported Zocor (Simvastatin) 20 Mg Tab 20 Mg PO QPM 09/23/16 Reported Reported Home Medications Medications Dose Route/Sig Max Daily Dose Days Date Category Dose Instructions Prilosec (Omeprazole) 40 Mg Cap 40 Mg PO DAILY 10/29/17 Reported Ferrous Gluconate 324 Mg Tab 324 Mg PO QAM 10/15/17 Reported time release Demadex (Torsemide) 10 Mg Tab 10 Mg PO QAM 10/15/17 Reported Centrum Kids Complete (Pediatric Multiple Vitamin W/) 1 Chw Chw 1 Tab PO BID 10/15/17 Reported Vitamin D3 (Cholecalciferol) 1,000 Unit Tab 1 Tab PO BID 07/24/17 Reported Citracal + D3 Maximum (Calcium Citrate-Vitamin D) 1 Tab Tab 2 Tab PO BID 07/24/17 Reported Lyrica (Pregabalin) 75 Mg Cap 75 Mg PO BID 05/14/17 Reported Coreg (Carvedilol) 6.25 Mg Tab 12.5 Mg PO BID 03/09/17 Reported Vitamin B-12 (Cyanocobalamin) 1,000 Mcg Tab 1,000 Mcg SQ MONTHLY 09/23/16 Reported Albuterol Sulfate 1.25 Mg/3 Ml Neb 1 Vial NEB Q4 PRN 09/23/16 Reported Ventolin Hfa (Albuterol) 200 Puffs/35633 Mcg Aers 2-4 Puffs INH Q6H PRN 09/23/16 Reported Flovent Diskus (Fluticasone Propionate (Inhala) 100 Mcg/Blist Aer 1 Puffs INH BID PRN 09/23/16 Reported Amitriptyline HCl 25 Mg Tab 25 Mg PO HS 09/23/16 Reported Mirapex (Pramipexole Dihydrochloride) 0.25 Mg Tab 0.5 Mg PO HS 09/23/16 Reported Lidocaine (Lidocaine (Anorectal)) 5 % Cre 1 Appln TOP TID PRN 09/23/16 Reported Zocor (Simvastatin) 20 Mg Tab 20 Mg PO QPM 09/23/16 Reported Provider Instructions Activity Restrictions - No exercising or heavy lifting for 24 hours. - Do not drink alcohol the day of the procedure. - Do not drive a car or operate machinery until the day after the procedure. - Do not make any important decisions or sign important papers in 24 hours after the procedure. Following Day: - Return to full activity which may include returning to work/school. Diet Start your diet with liquids and light foods (jello, soup, juice, toast). Then eat your usual diet if not nauseated. Treatment For Common After Affects For mild abdominal pain, bloating, or excessive gas: - Rest - Eat lightly - Lie on right side Follow-Up Information Follow-up with DR SCHAEFER as scheduled Anesthesia Information What You Should Know You have had a procedure that required some medicine to reduce anxiety and discomfort. This treatment is called moderate sedation. After receiving the treatment, you may be sleepy, but you will be able to breathe on your own. The effects of the treatment may last for several hours. Follow these instructions along with Activity/Diet recommendations noted above: * Do NOT do anything where dizziness or clumsiness would be dangerous. * Rest quietly at home today, then you can be up and about tomorrow. * Have a responsible person stay with you the rest of today. * You may have had an I.V. today. If so, you may take the dressing off later today. Recommendations Call your doctor if: * Trouble breathing * Continuous vomiting for more than 24 hours * Temperature above 101 degrees * Severe abdominal pain or bloating * Pain not relieved by pain medicine ordered * There is increased drainage or redness from any incision * A large amount of rectal bleeding greater than 2-3 tablespoons. (If you had a polyp/s removed or have hemorrhoids, a small amount of blood - from the rectum is to be expected.) * You have any unanswered questions or concerns. IN THE EVENT OF A SERIOUS EMERGENCY, GO TO THE NEAREST EMERGENCY ROOM Your discharge instructions were prepared by provider Abiodun Garcia. Patient Instructions Signature Page Andria Dove Patient (or Guardian) Signature/Date: I have read and understand the instructions given to me by my caregivers. Caregiver/RN/Doctor Signature/Date: The above-named patient and/or guardian has received patient instructions on this date. + Original Patient Signature Page (only) stays with chart. Please make copy for patient.
--- NOTE | 2017-11-11 14:10 | GI REPORT ---
Patient Name: Andria Dove Procedure Date: 11/11/2017 12:39 PM Date of : 1955 Admit Type: Outpatient Age: 62 Gender: Female Attending MD: Abiodun Garcia MD Procedure: Colonoscopy Providers: Abiodun Garcia MD Referring MD: Saira Finley Indications: Family history of colon cancer in a first-degree relative Medicines: Propofol per Anesthesia Complications: No immediate complications. Estimated blood loss: Minimal. Estimated Blood Loss: Estimated blood loss was minimal. Procedure: Pre-Anesthesia Assessment: - Prior to the procedure, a History and Physical was performed, and patient medications and allergies were reviewed. The patient's tolerance of previous anesthesia was also reviewed. The risks and benefits of the procedure and the sedation options and risks were discussed with the patient. All questions were answered, and informed consent was obtained. Prior Anticoagulants: The patient has taken no previous anticoagulant or antiplatelet agents. ASA Grade Assessment: III - A patient with severe systemic disease. After reviewing the risks and benefits, the patient was deemed in satisfactory condition to undergo the procedure. After I obtained informed consent, the scope was passed under direct vision. Throughout the procedure, the patient's blood pressure, pulse, and oxygen saturations were monitored continuously. The scope was introduced through the anus and advanced to the terminal ileum, with identification of the appendiceal orifice and IC valve. The colonoscopy was performed without difficulty. The patient tolerated the procedure well. The quality of the bowel preparation was good. Findings: The perianal and digital rectal examinations were normal. Pertinent negatives include normal sphincter tone, no palpable rectal lesions and no anal lesion or abnormality was detected. Two sessile polyps were found in the distal transverse colon. The polyps were 3 to 6 mm in size. These polyps were removed with a cold snare. Resection and retrieval were complete. Estimated blood loss was minimal. Verification of patient identification for the specimen was done by the physician and electrical manufacturing technician using the patient's name and medical record number. A 8 mm polyp was found in the mid transverse colon. The polyp was sessile. The polyp was removed with a hot snare. Resection and retrieval were complete. Estimated blood loss was minimal. Verification of patient identification for the specimen was done by the physician and electrical manufacturing technician using the patient's name and medical record number. A 8 mm polyp was found in the ascending colon. The polyp was sessile. The polyp was removed with a hot snare. Resection and retrieval were complete. Estimated blood loss was minimal. Verification of patient identification for the specimen was done by the physician and electrical manufacturing technician using the patient's name and medical record number. Estimated blood loss was minimal. Many small-mouthed diverticula were found in the sigmoid colon. The retroflexed view of the distal rectum and anal verge was normal and showed no anal or rectal abnormalities. The terminal ileum appeared normal. Impression: - Two 3 to 6 mm polyps in the distal transverse colon, removed with a cold snare. Resected and retrieved. - One 8 mm polyp in the mid transverse colon, removed with a hot snare. Resected and retrieved. - One 8 mm polyp in the ascending colon, removed with a hot snare. Resected and retrieved. - Diverticulosis in the sigmoid colon. - The distal rectum and anal verge are normal on retroflexion view. - The examined portion of the ileum was normal. Recommendation: - Discharge patient to home (ambulatory). - Resume regular diet. - Continue present medications. - Await pathology results. - Repeat colonoscopy for surveillance based on pathology results. - Return to referring physician as previously scheduled. MD Abiodun Guadarrama MD 11/11/2017 2:10:09 PM This report has been signed electronically. Note Initiated On: 11/11/2017 12:39 PM Number of Addenda: 0 I attest to the content of the Intraoperative Record and orders documented therein, exceptions below {[id number]}
--- NOTE | 2017-11-11 14:17 | Anesthesiology Progress Note ---
Anesthesia Post Op Note Date & Time Nov 11, 2017 at 14:17 Vital Signs Pain Intensity: 0 Vital Signs Past 12 Hours Date Time Temp Pulse Resp B/P (MAP) Pulse Ox O2 Delivery O2 Flow Rate FiO2 11/11/17 14:05 55 18 130/66 (87) 96 Room Air 11/11/17 12:38 36.5 57 18 182/63 (102) 95 Room Air Notes Mental Status: alert / awake / arousable, participated in evaluation Pt Amnestic to Procedure: Yes Nausea / Vomiting: adequately controlled Pain: adequately controlled Airway Patency, RR, SpO2: stable & adequate BP & HR: stable & adequate Hydration State: stable & adequate Anesthetic Complications: no major complications apparent
[2017-11-11 14:33] VITALS: BP 152/80; PULSE 56; O2SAT 98
== END | disposition home or self-care (01) ==
LOC: C.GI 12:14
PROVIDERS: ATTEND Internal Medicine Gastroenterology
DX: Z12.11 Encounter for screening for malignant neoplasm of colon (principal); D12.3 Benign neoplasm of transverse colon; D12.2 Benign neoplasm of ascending colon; K57.30 Diverticulosis of large intestine without perforation or abscess without bleeding; J45.909 Unspecified asthma, uncomplicated; I10 Essential (primary) hypertension; Z79.899 Other long term (current) drug therapy; E66.9 Obesity, unspecified; Z68.41 Body mass index [BMI] 40.0-44.9, adult; E11.9 Type 2 diabetes mellitus without complications; J44.9 Chronic obstructive pulmonary disease, unspecified; Z87.891 Personal history of nicotine dependence; Z88.8 Allergy status to other drugs, medicaments and biological substances; Z80.0 Family history of malignant neoplasm of digestive organs

== ENCOUNTER 2022-05-07 09:37 | Inpatient (IN) ==
--- NOTE | 2022-05-07 09:45 | Emergency Department Note ---
Impression & Plan Closed fracture of left hip, Fall, Anemia ED Provider Note NAME: LANDY LOPEZ AGE: 66 SEX: F : 1955 ARRIVES VIA: Walk-In INFORMANT: Patient, ED PROVIDER(S): Matt Padilla MD CHIEF COMPLAINT: Fall, hip pain MEDICAL DECISION MAKING: Patient presents after falling to her left side and striking her left hip. Patient states that she did try to get up and did feel a pop. Patient denies any chest pains or shortness of breath and denies any head strike or LOC no nausea vomiting. IV was established and blood work was obtained. Patient did have a COVID swab completed along with a left hip pelvis and left femur films. Patient with a normal white count with mild anemia hemoglobin 10.3 which is chronic and stable. Platelet count is unremarkable. Coags unremarkable kidney function unremarkable but with prerenal azotemia. COVID-negative. The patient's initial plain films do not show obvious fracture but may show concern for nondisplaced fracture. CT recommended and ordered of the left hip. The patient CT of the left hip shows mildly displaced fractures of the base of the greater trochanter of the left femur. No additional fractures noted. I did speak with the on-call hospitalist service Dr. Ford and the patient was admitted to the medicine service. Orthopedics was made aware. Chest x-ray EKG and Greenberg were ordered. Prior /Outside records reviewed: I did review the patient's operative report from Dr. Buckner only from June 2018. Patient did have a arthroscopic subacromial decompression with excision of distal clavicle. Patient did have repair of rotator cuff and biceps tenotomy Differential diagnosis: Fracture, dislocation, neurovascular compromise, compartment syndrome, soft tissue injury, as well as other pathologies. Diagnostics, as interpreted by me: ECG: None Cardiac monitoring: An order was placed for continuous cardiac monitoring. The monitor shows a rate of 82 with sinus rhythm. Patient was placed on pulse oximetry Medical decision rules: None Imaging studies: See below HPI: Patient presents from home due to concern for ground-level fall and asso ciated hip pain. The patient states that she fell to her left side striking her left hip to try to get up when she did try to do so she felt a pop and was unable to ambulate. Patient denies any head strike or LOC. Patient does not take any blood thinning medications. The patient has had prior follow-up with Dr. Dudley ARIAS for bilateral knee replacements. The patient had a couple of sips of water on her way up to the emergency department but last ate or drink anything significant last evening. Patient denies any head neck chest back upper extremity or lower extremity pain. No abdominal pain. Patient did not take anything for pain prior to arrival. PAST MEDICAL HISTORY: See Below PAST SURGICAL HISTORY: See Below SOCIAL HISTORY: See Below HOME MEDICATIONS: See Below ALLERGIES: See Below VITALS: See Below PHYSICAL EXAMINATION: GENERAL: NAD, wearing a mask, non-toxic. Wearing glasses. EYE EXAM: Normal conjunctiva. PERRL, no anisocoria and EOM's grossly intact w/o pain. NECK: Supple, no nuchal rigidity, no adenopathy, non-tender. No signs of meningismus. FROM of the neck with good chin to chest and neck extension. No stridor. LUNGS: Clear to auscultation. Normal chest wall mechanics. HEART: NSR, no MRG. ABDOMEN: Abdomen soft, non-tender, normo-active bowel sounds, no masses, no rebound or guarding. BACK: No CVA TTP. SKIN: No rashes and no bruising. UPPER EXTREMITIES: Upper extremities are grossly normal. LOWER EXTREMITIES: Left lower extremity longer than right lower extremity but may be secondary to the patient's right lower extremity in slight flexion at the knee, left lower extremity neurovascular intact distally to SP DP and tibialis nerves, good pedal pulse, able to plantarflex and dorsiflex the ankle, decreased range of motion at left hip and knee secondary to pain, compartments are soft, pain to the proximal femur and lateral hip area, no knee pain no pain to the pelvis. NEURO EXAM: A&O x3, cranial nerves II-XII grossly intact, normal speech, moves all 4 extremities. Past Med/Surg History Medical History Asthma NO INHALER USED RECENTLY AVNRT (AV mica re-entry tachycardia) Chronic back pain GERD (gastroesophageal reflux disease) History of anemia History of colon polyps History of skin cancer HLD (hyperlipidemia) HTN (hypertension) Hx of diabetes mellitus NO LONGER SINCE GASTRIC BYPASS Hx of supraventricular tachycardia Neuropathy bilateral legs Nocturnal hypoxemia CPAP DEVICE (DOES NOT USE EVERY NIGHT) Osteoarthritis Restless leg syndrome Surgical History H/O gastric bypass (~03/2017) History of anesthesia reaction "FLAT-LINED AT [facility]>SHOULDER SURGERY 2018" History of bilateral tubal ligation History of bunionectomy LEFT History of cardiac radiofrequency ablation (~02/2018) SVT>2018 AT [facility] History of cholecystectomy History of colonoscopy History of esophagogastroduodenoscopy (EGD) History of hysterectomy History of radiofrequency ablation procedure for cardiac arrhythmia History of shoulder surgery RT - 06/2018 [facility] History of tooth extraction History of total knee replacement RT/LEFT Family History Mother Family hx of colon cancer Other Cancer Heart disease No family history of adverse response to anesthesia No family history of bleeding disorder Social History Smoking Status: Never smoker Second Hand Exposure: Yes (hx); Hx Alcohol Use: No Hx Substance Use: No Preferred Language: Pakistani Communication Ability: Effective Matt[employer] Sewer Required: No Beliefs That Will Affect Care: None Current Living Situation: Spouse Feels Safe at Home: Yes Assistive Devices: CPAP, Denture - Upper, Denture - Lower and Glasses Allergies Allergies Allergy/AdvReac Type Severity Reaction Status Date / Time atenolol Allergy Mild RASH Verified 01/02/22 08:36 benazepril AdvReac Mild COUGH Verified 01/02/22 08:36 Home Meds Home Medications Medication Instructions Recorded Confirmed amitriptyline 25 mg tablet 25 mg PO HS Pain ##0 09/23/16 01/02/22 albuterol sulfate 90 mcg/actuation 2 puff inhalation QID PRN SHORT OF 06/10/18 01/02/22 aerosol inhaler (Ventolin HFA) BREATH calcium citrate 315 mg 1 tab PO BID 06/10/18 01/02/22 calcium-vitamin D3 6.25 mcg (250 unit) tablet (Citracal + Vitamin D Maximum) cyanocobalamin (vitamin B-12) 1 dose IM MONTHLY 06/10/18 01/02/22 1,000 mcg/mL injection kit fluticasone propionate 100 1 inh inhalation BID PRN SHORT OF 06/10/18 01/02/22 mcg/actuation blister powder for BREATH inhalation (Flovent Diskus) omeprazole 40 mg capsule,delayed 40 mg PO QAM 06/10/18 01/02/22 release pediatric multivitamin no.76 1 tab PO BID 06/10/18 01/02/22 (Flintstones Complete chewable tablet) pramipexole 0.25 mg tablet 2 tab PO HS 06/10/18 01/02/22 (Mirapex) pregabalin 75 mg capsule (Lyrica) 75 mg PO BID 06/10/18 01/02/22 simvastatin 20 mg tablet 20 mg PO HS 06/10/18 01/02/22 torsemide 20 mg tablet 40 mg PO QAM 10/26/19 01/02/22 aspirin 81 mg tablet,delayed 81 mg PO HS 02/18/21 01/02/22 release hydralazine 10 mg tablet 10 mg PO TID 02/18/21 01/02/22 losartan 50 mg tablet 50 mg PO QAM 02/18/21 01/02/22 potassium chloride 8 mEq 8 meq PO TID 02/18/21 01/02/22 capsule,extended release Previous Rx's Medication Instructions Recorded triamcinolone acetonide 55 mcg 2 spray intranasal DAILY #16.9 mL 03/05/21 nasal spray aerosol Results & Data (ED) Vital Signs Vital Signs - 24 hr 05/07/22 09:39 05/07/22 12:25 05/07/22 14:05 Temperature 36.2 C L Temperature Source Temporal Artery Scan Pulse Rate 85 Pulse Rate [Right Finger] 60 63 Pulse Rhythm [Right Finger] Regular Regular Respiratory Rate 18 18 16 Respiratory Effort / Characteristics Non-Labored Spontaneous Non-Labored Spontaneous Non-Labored Spontaneous Respiratory Depth Normal Normal Normal Respiratory Pattern Regular Regular Regular Blood Pressure 201/89 H Blood Pressure [Right Arm] 154/79 H 154/79 H Blood Pressure Mean 126 Blood Pressure Mean [Right Arm] 104 104 Blood Pressure Position [Right Arm] Lying Pulse Oximetry 98 97 97 Oxygen Delivery Method Room Air Room Air Room Air Sepsis Recent Fever Within 48 Hours No Sepsis New/Unexplained Change in Mental Status No Sepsis Action Taken by Nursing No Action Required Home Medications Current Medication List: was personally reviewed by me Laboratory Data Attestation: I reviewed the patient's lab results. 05/07/22 10:50 05/07/22 10:50 Lab Results 0205/07/22 05/07/22 Range/Units 10:50 10:50 10:50 WBC 5.53 (4.8-10.8) K/ul RBC 3.25 L (4.20-5.40) M/uL Hgb 10.3 L (12.0-16.0) g/dl Hct 31.4 L (37.0-47.0) % MCV 96.6 (80.0-100.0) fL MCH 31.7 (25.0-34.0) pg MCHC 32.8 (32.0-36.0) g/dL RDW Std Deviation 47.9 H (36.4-46.3) fL RDW Coeff of Carlos 13.4 (11.5-14.5) % Plt Count 234 (130-400) K/uL MPV 11.5 (9.4-12.4) fL Immature Gran % (Auto) 0.5 % Neut % (Auto) 73.3 % Lymph % (Auto) 18.1 % [place] % (Auto) 6.0 % Eos % (Auto) 1.4 % Baso % (Auto) 0.7 % Neut # (Auto) 4.05 (1.40-6.50) K/uL Lymph # (Auto) 1.00 L (1.2-3.4) K/uL [place] # (Auto) 0.33 (0.11-0.59) K/uL Eos # (Auto) 0.08 (0-0.50) K/uL Baso # (Auto) 0.04 (0-0.2) K/uL Immature Gran # (Auto) 0.03 (0.01-0.20) K/uL PT 9.8 (9.0-12.0) Seconds INR 0.9 (0.9-1.1) APTT 22.8 (21.0-31.0) Seconds PTT Ratio 0.8 Sodium 142 (136-145) mmol/L Potassium 4.1 (3.5-5.1) mmol/L Chloride 106 (98-107) mmol/L Carbon Dioxide 30 (21-32) mmol/L Anion Gap 6 (3-11) BUN 26 H (6-23) mg/dl Creatinine 0.99 (0.6-1.2) mg/dl Est Cr Clr Drug Dosing Not Reportable Est GFR ( Amer) 67.9 ml/min Est GFR (Non-Af Amer) 58.6 ml/min BUN/Creatinine Ratio 26.3 H (10-20) Glucose 97 (70-99(Fasting)) mg/dl Calcium 9.8 (8.5-10.1) mg/dl Total Bilirubin 0.5 (0.2-1.0) mg/dl AST 23 (13-39) U/L ALT 16 (7-52) U/L Alkaline Phosphatase 96 (34-104) U/L Total Protein 6.8 (6.0-8.3) gm/dl Albumin 4.0 (3.4-5.0) gm/dl Globulin 2.8 (2.5-4.0) gm/dl Albumin/Globulin Ratio 1.4 (0.9-2) SARS-CoV-2, RNA, NAAT (NEGATIVE) 05/07/22 Range/Units 11:24 WBC (4.8-10.8) K/ul RBC (4.20-5.40) M/uL Hgb (12.0-16.0) g/dl Hct (37.0-47.0) % MCV (80.0-100.0) fL MCH (25.0-34.0) pg MCHC (32.0-36.0) g/dL RDW Std Deviation (36.4-46.3) fL RDW Coeff of Carlos (11.5-14.5) % Plt Count (130-400) K/uL MPV (9.4-12.4) fL Immature Gran % (Auto) % Neut % (Auto) % Lymph % (Auto) % [place] % (Auto) % Eos % (Auto) % Baso % (Auto) % Neut # (Auto) (1.40-6.50) K/uL Lymph # (Auto) (1.2-3.4) K/uL [place] # (Auto) (0.11-0.59) K/uL Eos # (Auto) (0-0.50) K/uL Baso # (Auto) (0-0.2) K/uL Immature Gran # (Auto) (0.01-0.20) K/uL PT (9.0-12.0) Seconds INR (0.9-1.1) APTT (21.0-31.0) Seconds PTT Ratio Sodium (136-145) mmol/L Potassium (3.5-5.1) mmol/L Chloride (98-107) mmol/L Carbon Dioxide (21-32) mmol/L Anion Gap (3-11) BUN (6-23) mg/dl Creatinine (0.6-1.2) mg/dl Est Cr Clr Drug Dosing Est GFR ( Amer) ml/min Est GFR (Non-Af Amer) ml/min BUN/Creatinine Ratio (10-20) Glucose (70-99(Fasting)) mg/dl Calcium (8.5-10.1) mg/dl Total Bilirubin (0.2-1.0) mg/dl AST (13-39) U/L ALT (7-52) U/L Alkaline Phosphatase (34-104) U/L Total Protein (6.0-8.3) gm/dl Albumin (3.4-5.0) gm/dl Globulin (2.5-4.0) gm/dl Albumin/Globulin Ratio (0.9-2) SARS-CoV-2, RNA, NAAT NEGATIVE (NEGATIVE) Administered Medications Discontinued Medications Morphine Sulfate (Morphine Sulfate 4 Mg/Ml 1 Ml Carp\\Vial) 4 mg IV NOW STA Stop: 05/07/22 09:55 Last Admin: 05/07/22 11:20 Dose: 4 mg Documented By: RAMU Morphine Sulfate (Morphine Sulfate 4 Mg/Ml 1 Ml Carp\\Vial) 4 mg IV NOW STA Stop: 05/07/22 12:33 Last Admin: 05/07/22 12:43 Dose: 4 mg Documented By: RAMU Imaging Data Radiologist's Impression: Femur X-Ray 05/07/22 09:55 XR hip LT 2V w pelvis, XR femur LT 2V routine CLINICAL HISTORY: Fall. Left hip pain. COMPARISON STUDY: None. FINDINGS: Subtle lucency within the greater trochanter concerning for a nondis placed fracture. Soft tissues are unremarkable. There is a left total knee arthroplasty. The mid to distal left femur appears intact. No fracture or dislocation within the right hip or pelvis. The sacrum is intact. IMPRESSION: Subtle lucency within the left greater trochanter concerning for a nondisplaced fracture. Follow-up CT recommended to assess for an intertrochante niranjan fracture. ACT 112: Negative or not required by law. Electronically signed by: Jose Angel Rubi M.D. 05/07/2022 12:15 PM Hip/Pelvis X-Ray 05/07/22 09:55 XR hip LT 2V w pelvis, XR femur LT 2V routine CLINICAL HISTORY: Fall. Left hip pain. COMPARISON STUDY: None. FINDINGS: Subtle lucency within the greater trochanter concerning for a nondisplaced fracture. Soft tissues are unremarkable. There is a left total knee arthroplasty. The mid to distal left femur appears intact. No fracture or dislocation within the right hip or pelvis. The sacrum is intact. IMPRESSION: Subtle lucency within the left greater trochanter concerning for a nondisplaced fracture. Follow-up CT recommended to assess for an intertrochanteric fracture. ACT 112: Negative or not required by law. Electronically signed by: Jose Angel Rubi M.D. 05/07/2022 12:[address] 05/07/22 12:27 CT SCAN OF THE LEFT HIP WITHOUT IV CONTRAST CLINICAL HISTORY: Fall. Left hip pain. COMPARISON STUDY: Pelvic CT dated 11/06/2012. Pelvic and left hip radiographs dated 05/07/2022. TECHNIQUE: CT scan of the left hip was performed from the bony pelvis to the femoral shaft. Images are reviewed in the axial, sagittal, and coronal planes. IV contrast was not administered for this examination. A dose lowering technique was utilized adhering to the principles of ALARA. FINDINGS: The skeletal structures are osteopenic. CT confirms a displaced fracture through the base of the greater trochanter. This does not appear to extend into the intertrochanteric left femur. No additional fracture is identified. The visualized left hemipelvis appears intact. There is minimal degenerative change in the left hip. No evidence of avascular necrosis is seen. There is no lytic or blastic lesion. There is hemorrhage around the fracture site. No large hematoma is seen. The regional musculature is normal in appearance. There is no left pelvic sidewall or inguinal lymphadenopathy. Diverticular disease is noted in the partially imaged left colon. IMPRESSION: 1. CT confirms the presence of a mildly displaced fracture through the base of the greater trochanter of the left femur. 2. There is no clear CT evidence of intertrochanteric extension. 3. No additional fracture is identified. ACT 112: Negative or not required by law. Dictated: 05/07/2022 2:28 PM Transcribed: 05/07/2022 2:41 PM [place] [id number] [facility] Electronically signed by: Wang Sykes M.D. 05/07/2022 2:52 PM Discharge Plan Visit Data Chief Complaint: Hip Pain Stated Complaint: HAS FALLEN AND HURT L HIP ED Provider: Matt Padilla Discharge Problem: Closed fracture of left hip, Fall, Anemia Patient Disposition: Admitted As Inpatient Forms Stand Alone Forms: [facility] Prescriptions Prescriptions: No Action amitriptyline 25 mg Tablet 25 mg PO HS Qty: 0 triamcinolone acetonide 55 mcg aerosol,spray 2 spray intranasal DAILY Qty: 16.9 11RF Rx Instructions: administer into each nostril torsemide 20 mg tablet 40 mg PO QAM omeprazole 40 mg Capsule,Delayed Release(Dr/Ec) 40 mg PO QAM simvastatin 20 mg Tablet 20 mg PO HS Flovent Diskus 100 mcg/actuation Blister With Device 1 inh INHALATION BID PRN (Reason: SHORT OF BREATH) pramipexole [Mirapex] 0.25 mg Tablet 2 tab PO HS albuterol sulfate [Ventolin HFA] 90 mcg/actuation Hfa Aerosol Inhaler 2 puff INHALATION QID PRN (Reason: SHORT OF BREATH) pregabalin [Lyrica] 75 mg Capsule 75 mg PO BID calcium citrate-vitamin D3 [Citracal + D Maximum] 315-250 mg-unit Tablet 1 tab PO BID cyanocobalamin (vitamin B-12) 1,000 mcg/mL Kit 1 dose IM MONTHLY Flintstones Complete Tablet,Chewable 1 tab PO BID losartan 50 mg Tablet 50 mg PO QAM hydralazine 10 mg Tablet 10 mg PO TID potassium chloride 8 mEq Capsule, Extended Release 8 meq PO TID aspirin 81 mg Tablet,Delayed Release (Dr/Ec) 81 mg PO HS Referrals Referrals: Rivka Regalado [Primary Care Provider] -
[2022-05-07] MEDS ORDERED: MoRPHine SULFATE 4 MG/ML 1 ML CARP\\VIAL IV STA ×2 (09:54→12:32)
[2022-05-07 11:31] LABS: Basophils # (auto) 0.04 K/uL (0-0.2); Basophils % (auto) 0.7 %; Eosinophils # (auto) 0.08 K/uL (0-0.50); Eosinophils % (auto) 1.4 %; Hematocrit (blood only) 31.4 % (37.0-47.0); Hemoglobin 10.3 g/dl (12.0-16.0); Immature Granulocytes # (auto) 0.03 K/uL (0.01-0.20); Immature Granulocytes % (auto) 0.5 %; Lymphocytes % (auto) 18.1 %; Mean Corpuscular Hemoglobin 31.7 pg (25.0-34.0); Mean Corpuscular Hgb Conc 32.8 g/dL (32.0-36.0); Mean Corpuscular Volume 96.6 fL (80.0-100.0); Mean Platelet Volume 11.5 fL (9.4-12.4); Monocytes # (auto) 0.33 K/uL (0.11-0.59); Neutrophils # (auto) 4.05 K/uL (1.40-6.50); Neutrophils % (auto) 73.3 %; Platelet Count 234 K/uL (130-400); RDW Coefficient of Variation 13.4 % (11.5-14.5); RDW Standard Deviation 47.9 fL (36.4-46.3); Red Blood Count 3.25 M/uL (4.20-5.40); White Blood Count 5.53 K/ul (4.8-10.8)
[2022-05-07 12:10] LABS: INR 0.9 (0.9-1.1); Partial Thromboplastin Ratio 0.8; Partial Thromboplastin Time 22.8 Seconds (21.0-31.0); Prothrombin Time 9.8 Seconds (9.0-12.0)
[2022-05-07 12:11] LABS: Alanine Aminotransferase 16 U/L (7-52); Albumin Globulin Ratio 1.4 (0.9-2); Alkaline Phosphatase 96 U/L (34-104); Anion Gap 6 (3-11); Aspartate Aminotransferase 23 U/L (13-39); BUN Creatinine Ratio 26.3 (10-20); Bilirubin,Total 0.5 mg/dl (0.2-1.0); Blood Urea Nitrogen 26 mg/dl (6-23); Calcium 9.8 mg/dl (8.5-10.1); Carbon Dioxide 30 mmol/L (21-32); Chloride 106 mmol/L (98-107); Est GFR (African American) 67.9 ml/min; Est GFR (Non-African American) 58.6 ml/min; Globulin 2.8 gm/dl (2.5-4.0); Glucose 97 mg/dl (70-99(Fasting)); Potassium 4.1 mmol/L (3.5-5.1); Sodium 142 mmol/L (136-145); Total Protein 6.8 gm/dl (6.0-8.3)
--- NOTE | 2022-05-07 12:16 | XRay Report ---
XR hip LT 2V w pelvis, XR femur LT 2V routine CLINICAL HISTORY: Fall. Left hip pain. COMPARISON STUDY: None. FINDINGS: Subtle lucency within the greater trochanter concerning for a nondisplaced fracture. Soft t issues are unremarkable. There is a left total knee arthroplasty. The mid to distal left femur appear s intact. No fracture or dislocation within the right hip or pelvis. The sacrum is intact. IMPRESSION: Subtle lucency within the left greater trochanter concerning for a nondisplaced fracture . Follow-up CT recommended to assess for an intertrochanteric fracture. ACT 112: Negative or not required by law. Electronically signed by: Jose Angel Rubi M.D. 05/07/2022 12:15 PM
--- NOTE | 2022-05-07 14:12 | Electrocardiogram Report ---
Test Reason : Blood Pressure : / mmHG Vent. Rate : 051 BPM Atrial Rate : 051 BPM P-R Int : 000 ms QRS Dur : 080 ms QT Int : 448 ms P-R-T Axes : 000 -09 023 degrees QTc Int : 412 ms Poor data quality, interpretation may be adversely affected Sinus rhythm Voltage criteria for left ventricular hypertrophy Poor R wave progression, consider anterior VA vs. lead placement vs. LVH Abnormal ECG When compared with ECG of 19-JAN-2018 10:04, No significant change Confirmed by Filiberto Otto ([id number]) on 05/07/2022 2:12:02 PM Referred By: REFERRED SELF Confirmed By:Filiberto Otto
--- NOTE | 2022-05-07 14:53 | CT Scan Report ---
CT SCAN OF THE LEFT HIP WITHOUT IV CONTRAST CLINICAL HISTORY: Fall. Left hip pain. COMPARISON STUDY: Pelvic CT dated 11/06/2012. Pelvic and left hip radiographs dated 05/07/2022. TECHNIQUE: CT scan of the left hip was performed from the bony pelvis to the femoral shaft. Images ar e reviewed in the axial, sagittal, and coronal planes. IV contrast was not administered for this exam ination. A dose lowering technique was utilized adhering to the principles of ALARA. FINDINGS: The skeletal structures are osteopenic. CT confirms a displaced fracture through the base o f the greater trochanter. This does not appear to extend into the intertrochanteric left femur. No ad ditional fracture is identified. The visualized left hemipelvis appears intact. There is minimal dege nerative change in the left hip. No evidence of avascular necrosis is seen. There is no lytic or satinder tic lesion. There is hemorrhage around the fracture site. No large hematoma is seen. The regional mus culature is normal in appearance. There is no left pelvic sidewall or inguinal lymphadenopathy. Diver ticular disease is noted in the partially imaged left colon. IMPRESSION: 1. CT confirms the presence of a mildly displaced fracture through the base of the greater trochanter of the left femur. 2. There is no clear CT evidence of intertrochanteric extension. 3. No additional fracture is identified. ACT 112: Negative or not required by law. Dictated: 05/07/2022 2:28 PM Transcribed: 05/07/2022 2:41 PM [place] [id number] [facility] Electronically signed by: Wang Sykes M.D. 05/07/2022 2:52 PM
[2022-05-07] MEDS ORDERED: SODIUM CHLORIDE 0.9% 500 ML IV SCH (15:15)
--- NOTE | 2022-05-07 15:26 | XRay Report ---
SINGLE VIEW CHEST CLINICAL HISTORY: Preoperative examination. Hip fracture FINDINGS: An AP, portable, upright chest radiograph is compared to study dated 03/09/2022. The heart is enlarged noting atherosclerotic calcification of the thoracic aorta. Pulmonary vasculature is nonc ongested. Chronic interstitial thickening is similar to previous. The lungs and pleural spaces are cl ear noting dependent atelectasis. No pneumothorax is seen. The skeletal structures are osteopenic. Th e bony thorax is grossly intact. IMPRESSION: Cardiomegaly with no active disease in the chest. ACT 112: Negative or not required by law. Electronically signed by: Wang Sykes M.D. 05/07/2022 3:24 PM
--- NOTE | 2022-05-07 15:47 | Orthopedic Consultation ---
Date of Consultation May 07, 2022 Assessment & Plan (1) Fracture of greater trochanter of left femur: Patient will be admitted under the medicine service. She can be weightbearing as tolerated on left lower extremity with walker assistance. She will need to have PT/OT. We recommend increasing her daily 81 mg aspirin to twice daily for DVT prophylaxis. Pain control will be monitored/ordered by the medicine service. Patient states that her son is coming to stay with her for at least a week. If she was able after passing PT/OT protocol she could potentially discharge to home, however if she is unable to pass and they deemed her unsafe to go home she may need to go to a rehab facility. We will continue to follow her while she is in the hospital. Case management should be consulted for discharge planning. We advised the patient that this fracture is nonsurgical and that it should heal in the next 6 to 8 weeks. Outpatient follow-up with Dr. Causey 2 weeks from now with x-rays. Supervising Physician Co-Signing Physician Notes I saw and examined the patient with ARPIT Seo PA-C, and agree with the above note. I personally reviewed her imaging studies, formulated the plan, and performed the substantive portion of the visit. History of Present Illness Reason for Consultation: Left hip greater trochanter fracture Requesting Physician: Dr. Andre Causey History of Present Illness 66-year-old female seen in the emergency department this afternoon. She states that she was standing on a pad by her sink. She states she was wearing rubber soled shoes and when she turned her body went but her foot did not and she fell landing directly on her left buttocks/lateral hip. Patient states she developed immediate pain and since has been having radiating pain from her hip down her leg. Patient denies striking her head or pain in any other area of her body. She also denies chest pain, shortness of breath, fever, chills, sweats, dizziness, loss of consciousness or headache. Allergies Allergy/AdvReac Type Severity Reaction Status Date / Time atenolol Allergy Intermediate RASH Verified 05/07/22 15:36 benazepril AdvReac Intermediate COUGH Verified 05/07/22 15:36 Home Medications Medication Instructions Recorded Confirmed Type amitriptyline 25 mg tablet 25 mg PO HS Pain ##0 09/23/16 05/07/22 History albuterol sulfate 90 mcg/actuation 2 puff inhalation QID PRN SHORT OF 06/10/18 05/07/22 History aerosol inhaler (Ventolin HFA) BREATH calcium citrate 315 mg 1 tab PO BID 06/10/18 05/07/22 History calcium-vitamin D3 6.25 mcg (250 unit) tablet (Citracal + Vitamin D Maximum) cyanocobalamin (vitamin B-12) 1 dose IM MONTHLY 06/10/18 05/07/22 History 1,000 mcg/mL injection kit fluticasone propionate 100 1 inh inhalation BID PRN SHORT OF 06/10/18 05/07/22 History mcg/actuation blister powder for BREATH inhalation (Flovent Diskus) omeprazole 40 mg capsule,delayed 40 mg PO QAM 06/10/18 05/07/22 History release pediatric multivitamin no.76 1 tab PO BID 06/10/18 05/07/22 History (Flintstones Complete chewable tablet) pramipexole 0.25 mg tablet 2 tab PO HS 06/10/18 05/07/22 History (Mirapex) pregabalin 75 mg capsule (Lyrica) 75 mg PO BID 06/10/18 05/07/22 History simvastatin 20 mg tablet 20 mg PO HS 06/10/18 05/07/22 History torsemide 20 mg tablet 40 mg PO QAM 10/26/19 05/07/22 History aspirin 81 mg tablet,delayed 81 mg PO HS 02/18/21 05/07/22 History release hydralazine 10 mg tablet 10 mg PO TID 02/18/21 05/07/22 History losartan 50 mg tablet 50 mg PO QAM 02/18/21 05/07/22 History potassium chloride 8 mEq 8 meq PO TID 02/18/21 05/07/22 History capsule,extended release triamcinolone acetonide 55 mcg 2 spray intranasal DAILY #16.9 mL 03/05/21 05/07/22 Rx nasal spray aerosol Patient History Medical History (Updated 05/08/22 @ 01:22 by Juan Antonio Ford MD) Asthma NO INHALER USED RECENTLY AVNRT (AV mica re-entry tachycardia) Chronic back pain GERD (gastroesophageal reflux disease) History of anemia History of colon polyps History of skin cancer HLD (hyperlipidemia) HTN (hypertension) Hx of diabetes mellitus NO LONGER SINCE GASTRIC BYPASS Hx of supraventricular tachycardia Neuropathy bilateral legs Nocturnal hypoxemia CPAP DEVICE (DOES NOT USE EVERY NIGHT) Osteoarthritis Restless leg syndrome Surgical History H/O gastric bypass (~03/2017) History of anesthesia reaction "FLAT-LINED AT [facility]>SHOULDER SURGERY 2018" History of bilateral tubal ligation History of bunionectomy LEFT History of cardiac radiofrequency ablation (~02/2018) SVT>2018 AT [facility] History of cholecystectomy History of colonoscopy History of esophagogastroduodenoscopy (EGD) History of hysterectomy History of radiofrequency ablation procedure for cardiac arrhythmia History of shoulder surgery RT - 06/2018 [facility] History of tooth extraction History of total knee replacement RT/LEFT Family History Mother Family hx of colon cancer Other Cancer Heart disease No family history of adverse response to anesthesia No family history of bleeding disorder Social History Smoking Status: Never smoker Second Hand Exposure: Yes (hx); Hx Alcohol Use: No Hx Substance Use: No Preferred Language: Yi Communication Ability: Effective Lever Tender Required: No Beliefs That Will Affect Care: None Current Living Situation: Spouse Other Information That Helps Us Care for You: No Feels Safe at Home: Yes Safety Concerns: Feels Safe At This Time Assistive Devices: CPAP, Denture - Upper, Denture - Lower and Glasses Review of Systems Review of Systems: All systems reviewed & are unremarkable except as noted in Subjective Physical Exam Physical Exam: Left lower extremity: Patient experiences exquisite tenderness to palpation over her greater trochanter. She also experiences some mild pain to palpation over the anterior lateral aspect of her thigh. She is able to to perform an active straight leg raise test. She is able to reach 0 degrees of extension with the lower extremity and flex to 90 degrees without significant pain. She is able to actively dorsi and plantarflex her foot. She is able to detect light sensation without over the pads of all digits and the plantar surface of her foot. She does have some venous stasis dermatitis just proximal to the ankle. There is no edema, erythema, ecchymosis, warmth or palp bony deformity. She is neurovascularly intact in the left lower extremity. Results & Data ([facility]) Vital Signs (Past 12 Hours) Vital Signs Temp Pulse Pulse Resp BP BP Pulse Ox 05/07/22 14:05 63 16 154/79 H 97 05/07/22 12:25 60 18 154/79 H 97 05/07/22 09:39 36.2 C L 85 18 201/89 H 98 O2 Del Method 05/07/22 14:05 Room Air 05/07/22 12:25 Room Air 05/07/22 09:39 Room Air Diagnostic Findings Laboratory Results WBC 5.53 K/ul (4.8-10.8) 05/07/22 10:50 RBC 3.25 M/uL (4.20-5.40) L 05/07/22 10:50 Hgb 10.3 g/dl (12.0-16.0) L 05/07/22 10:50 Hct 31.4 % (37.0-47.0) L 05/07/22 10:50 MCV 96.6 fL (80.0-100.0) 05/07/22 10:50 MCH 31.7 pg (25.0-34.0) 05/07/22 10:50 MCHC 32.8 g/dL (32.0-36.0) 05/07/22 10:50 RDW Std Deviation 47.9 fL (36.4-46.3) H 05/07/22 10:50 RDW Coeff of Carlos 13.4 % (11.5-14.5) 05/07/22 10:50 Plt Count 234 K/uL (130-400) 05/07/22 10:50 MPV 11.5 fL (9.4-12.4) 05/07/22 10:50 Immature Gran % (Auto) 0.5 % 05/07/22 10:50 Neut % (Auto) 73.3 % 05/07/22 10:50 Lymph % (Auto) 18.1 % 05/07/22 10:50 Lawrence % (Auto) 6.0 % 05/07/22 10:50 Eos % (Auto) 1.4 % 05/07/22 10:50 Baso % (Auto) 0.7 % 05/07/22 10:50 Neut # (Auto) 4.05 K/uL (1.40-6.50) 05/07/22 10:50 Lymph # (Auto) 1.00 K/uL (1.2-3.4) L 05/07/22 10:50 Lawrence # (Auto) 0.33 K/uL (0.11-0.59) 05/07/22 10:50 Eos # (Auto) 0.08 K/uL (0-0.50) 05/07/22 10:50 Baso # (Auto) 0.04 K/uL (0-0.2) 05/07/22 10:50 Immature Gran # (Auto) 0.03 K/uL (0.01-0.20) 05/07/22 10:50 PT 9.8 Seconds (9.0-12.0) 05/07/22 10:50 INR 0.9 (0.9-1.1) 05/07/22 10:50 APTT 22.8 Seconds (21.0-31.0) 05/07/22 10:50 PTT Ratio 0.8 05/07/22 10:50 Sodium 142 mmol/L (136-145) 05/07/22 10:50 Potassium 4.1 mmol/L (3.5-5.1) 05/07/22 10:50 Chloride 106 mmol/L (98-107) 05/07/22 10:50 Carbon Dioxide 30 mmol/L (21-32) 05/07/22 10:50 Anion Gap 6 (3-11) 05/07/22 10:50 BUN 26 mg/dl (6-23) H 05/07/22 10:50 Creatinine 0.99 mg/dl (0.6-1.2) 05/07/22 10:50 Est Cr Clr Drug Dosing Not Reportable 05/07/22 10:50 Est GFR ( Amer) 67.9 ml/min 05/07/22 10:50 Est GFR (Non-Af Amer) 58.6 ml/min 05/07/22 10:50 BUN/Creatinine Ratio 26.3 (10-20) H 05/07/22 10:50 Glucose 97 mg/dl (70-99(Fasting)) 05/07/22 10:50 Calcium 9.8 mg/dl (8.5-10.1) 05/07/22 10:50 Total Bilirubin 0.5 mg/dl (0.2-1.0) 05/07/22 10:50 AST 23 U/L (13-39) 05/07/22 10:50 ALT 16 U/L (7-52) 05/07/22 10:50 Alkaline Phosphatase 96 U/L (34-104) 05/07/22 10:50 Total Protein 6.8 gm/dl (6.0-8.3) 05/07/22 10:50 Albumin 4.0 gm/dl (3.4-5.0) 05/07/22 10:50 Globulin 2.8 gm/dl (2.5-4.0) 05/07/22 10:50 Albumin/Globulin Ratio 1.4 (0.9-2) 05/07/22 10:50 SARS-CoV-2, RNA, NAAT NEGATIVE (NEGATIVE) 05/07/22 11:24 Impressions Femur X-Ray 05/07/22 09:55 XR hip LT 2V w pelvis, XR femur LT 2V routine CLINICAL HISTORY: Fall. Left hip pain. COMPARISON STUDY: None. FINDINGS: Subtle lucency within the greater trochanter concerning for a nondisplaced fracture. Soft tissues are unremarkable. There is a left total knee arthroplasty. The mid to distal left femur appears intact. No fracture or dislocation within the right hip or pelvis. The sacrum is intact. IMPRESSION: Subtle lucency within the left greater trochanter concerning for a nondisplaced fracture. Follow-up CT recommended to assess for an intertrochanteric fracture. ACT 112: Negative or not required by law. Electronically signed by: Jose Angel Rubi M.D. 05/07/2022 12:15 PM Hip/Pelvis X-Ray 05/07/22 09:55 XR hip LT 2V w pelvis, XR femur LT 2V routine CLINICAL HISTORY: Fall. Left hip pain. COMPARISON STUDY: None. FINDINGS: Subtle lucency within the greater trochanter concerning for a nondisplaced fracture. Soft tissues are unremarkable. There is a left total knee arthroplasty. The mid to distal left femur appears intact. No fracture or dislocation within the right hip or pelvis. The sacrum is intact. IMPRESSION: Subtle lucency within the left greater trochanter concerning for a nondisplaced fracture. Follow-up CT recommended to assess for an intertrochanteric fracture. ACT 112: Negative or not required by law. Electronically signed by: Jose Angel Rubi M.D. 05/07/2022 12:[address] 05/07/22 12:27 CT SCAN OF THE LEFT HIP WITHOUT IV CONTRAST CLINICAL HISTORY: Fall. Left hip pain. COMPARISON STUDY: Pelvic CT dated 11/06/2012. Pelvic and left hip radiographs dated 05/07/2022. TECHNIQUE: CT scan of the left hip was performed from the bony pelvis to the femoral shaft. Images are reviewed in the axial, sagittal, and coronal planes. IV contrast was not administered for this examination. A dose lowering technique was utilized adhering to the principles of ALARA. FINDINGS: The skeletal structures are osteopenic. CT confirms a displaced fracture through the base of the greater trochanter. This does not appear to extend into the intertrochanteric left femur. No additional fracture is identified. The visualized left hemipelvis appears intact. There is minimal degenerative change in the left hip. No evidence of avascular necrosis is seen. There is no lytic or blastic lesion. There is hemorrhage around the fracture site. No large hematoma is seen. The regional musculature is normal in appearance. There is no left pelvic sidewall or inguinal lymphadenopathy. Diverticular disease is noted in the partially imaged left colon. IMPRESSION: 1. CT confirms the presence of a mildly displaced fracture through the base of the greater trochanter of the left femur. 2. There is no clear CT evidence of intertrochanteric extension. 3. No additional fracture is identified. ACT 112: Negative or not required by law. Dictated: 05/07/2022 2:28 PM Transcribed: 05/07/2022 2:41 PM [place] [id number] [facility] Electronically signed by: Wang Sykes M.D. 05/07/2022 2:52 PM Chest X-Ray 05/07/22 15:04 SINGLE VIEW CHEST CLINICAL HISTORY: Preoperative examination. Hip fracture FINDINGS: An AP, portable, upright chest radiograph is compared to study dated 03/09/2022. The heart is enlarged noting atherosclerotic calcification of the thoracic aorta. Pulmonary vasculature is noncongested. Chronic interstitial thickening is similar to previous. The lungs and pleural spaces are clear noting dependent atelectasis. No pneumothorax is seen. The skeletal structures are osteopenic. The bony thorax is grossly intact. IMPRESSION: Cardiomegaly with no active disease in the chest. ACT 112: Negative or not required by law. Electronically signed by: Wang Sykes M.D. 05/07/2022 3:24 PM
--- NOTE | 2022-05-07 15:53 | History & Physical Report ---
Date of Service May 07, 2022 Assessment & Plan (1) Fracture of greater trochanter of left femur: Plan: Consult orthopedics Weightbearing as tolerated Vitamin D level in a.m. Recommend DEXA scan as an outpatient for consideration of osteoporosis treatment Pain management with acetaminophen 1 g p.o. 3 times daily, Celebrex 200 mg p.o. daily (careful use of NSAIDs due to history of gastric bypass), tramadol 50 to 100 mg as needed (morphine only if tramadol is ineffective) PT/OT (2) Fall: Plan: No concerning features from history No further work-up required unless she continues to fall on the marcelo or is dizzy on current anti-hypertensives (3) Obstructive sleep apnea: Plan: CPAP HS (4) Restless leg syndrome: Plan: Continue Mirapex 0.5 mg p.o. at bedtime (will give additional 0.25 mg now due to worsening symptoms in the setting of GT #) (5) GERD (gastroesophageal reflux disease): Plan: Switch omeprazole to pantoprazole per hospital formulary (6) HTN (hypertension): Plan: Blood pressure elevated today in the emergency room due to not having her usual antihypertensives this morning. Continue her usual dose of hydralazine, losartan, torsemide. (7) HLD (hyperlipidemia): Plan: Continue simvastatin 20 mg p.o. at bedtime (8) Anemia: Plan: Anemia appears to be at baseline from labs in 2018. Reportedly worked up with her primary care physician therefore will defer further work-up at this time. (9) Asthma: Plan: No acute exacerbation suspected Uses Flovent discus as needed Plan VTE prophylaxis - aspirin 81 mg p.o. twice daily as recommended by orthopedics Diet - low-sodium Disposition - observation status to [facility] Admission and Anticipated Discharge Date Admission Date: May 07, 2022 History of Present Illness Chief Complaint: Left hip pain Primary Care Provider: Rivka Regalado Andria Dove is a 66 year old female who presents to the ER with left hip pain after tripping on a rug earlier today. She reports wearing rubber shoes on a rubber mat and when she went to turn, her legs did not turn with her. She denies any shortness of breath, chest pain, dizziness prior to falling. She denies hitting her head or any loss of consciousness. On trying to get up she felt a pop in her left hip. CT of her left hip confirms a mildly displaced fractures through the base of the greater trochanter of the left femur. She denies any other pain including her wrist or back. She denies any known osteoporosis but reports no recent DEXA scan within the last few years. She takes a vitamin D supplement daily. After 8 mg IV morphine in the emergency room she reports her pain is still an 8 out of 10 severity. She is yet to get out of bed in the emergency room but is in considerable pain just lying in bed. She has not taken any of her usual medications today. Allergies Allergy/AdvReac Type Severity Reaction Status Date / Time atenolol Allergy Intermediate RASH Verified 05/07/22 15:36 benazepril AdvReac Intermediate COUGH Verified 05/07/22 15:36 Home Medications Medication Instructions Recorded Confirmed Type amitriptyline 25 mg tablet 25 mg PO HS Pain ##0 09/23/16 05/07/22 History albuterol sulfate 90 mcg/actuation 2 puff inhalation QID PRN SHORT OF 06/10/18 05/07/22 History aerosol inhaler (Ventolin HFA) BREATH calcium citrate 315 mg 1 tab PO BID 06/10/18 05/07/22 History calcium-vitamin D3 6.25 mcg (250 unit) tablet (Citracal + Vitamin D Maximum) cyanocobalamin (vitamin B-12) 1 dose IM MONTHLY 06/10/18 05/07/22 History 1,000 mcg/mL injection kit fluticasone propionate 100 1 inh inhalation BID PRN SHORT OF 06/10/18 05/07/22 History mcg/actuation blister powder for BREATH inhalation (Flovent Diskus) omeprazole 40 mg capsule,delayed 40 mg PO QAM 06/10/18 05/07/22 History release pediatric multivitamin no.76 1 tab PO BID 06/10/18 05/07/22 History (Flintstones Complete chewable tablet) pramipexole 0.25 mg tablet 2 tab PO HS 06/10/18 05/07/22 History (Mirapex) pregabalin 75 mg capsule (Lyrica) 75 mg PO BID 06/10/18 05/07/22 History simvastatin 20 mg tablet 20 mg PO HS 06/10/18 05/07/22 History torsemide 20 mg tablet 40 mg PO QAM 10/26/19 05/07/22 History aspirin 81 mg tablet,delayed 81 mg PO HS 02/18/21 05/07/22 History release hydralazine 10 mg tablet 10 mg PO TID 02/18/21 05/07/22 History losartan 50 mg tablet 50 mg PO QAM 02/18/21 05/07/22 History potassium chloride 8 mEq 8 meq PO TID 02/18/21 05/07/22 History capsule,extended release triamcinolone acetonide 55 mcg 2 spray intranasal DAILY #16.9 mL 03/05/21 05/07/22 Rx nasal spray aerosol Past Med/Surg History Medical History (Updated 05/08/22 @ 01:22 by Juan Antonio Ford MD) Asthma NO INHALER USED RECENTLY AVNRT (AV mica re-entry tachycardia) Chronic back pain GERD (gastroesophageal reflux disease) History of anemia History of colon polyps History of skin cancer HLD (hyperlipidemia) HTN (hypertension) Hx of diabetes mellitus NO LONGER SINCE GASTRIC BYPASS Hx of supraventricular tachycardia Neuropathy bilateral legs Nocturnal hypoxemia CPAP DEVICE (DOES NOT USE EVERY NIGHT) Osteoarthritis Restless leg syndrome Surgical History H/O gastric bypass (~03/2017) History of anesthesia reaction "FLAT-LINED AT [facility]>SHOULDER SURGERY 2018" History of bilateral tubal ligation History of bunionectomy LEFT History of cardiac radiofrequency ablation (~02/2018) SVT>2018 AT [facility] History of cholecystectomy History of colonoscopy History of esophagogastroduodenoscopy (EGD) History of hysterectomy History of radiofrequency ablation procedure for cardiac arrhythmia History of shoulder surgery RT - 06/2018 [facility] History of tooth extraction History of total knee replacement RT/LEFT Family History Mother Family hx of colon cancer Other Cancer Heart disease No family history of adverse response to anesthesia No family history of bleeding disorder Social History Smoking Status: Never smoker Second Hand Exposure: Yes (hx); Hx Alcohol Use: No Hx Substance Use: No Preferred Language: Persian Communication Ability: Effective 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 Beliefs That Will Affect Care: None Current Living Situation: Spouse Other Information That Helps Us Care for You: No Feels Safe at Home: Yes Safety Concerns: Feels Safe At This Time Assistive Devices: CPAP, Denture - Upper, Denture - Lower and Glasses Review of Systems Review of Systems: All systems reviewed & are unremarkable except as noted in HPI & below Physical Exam Constitutional: WD/WN, vitals as above Eyes: + anicteric sclerae; normal pupil size ENMT: external ear and nose normal, oropharynx normal Respiratory: normal respiratory effort, lungs clear to auscultation Cardiovascular: Rate/Rhythm: regular rate and regular rhythm Vessels: posterior tibial pulses present (left) and dorsalis pedis pulses present (left) Extremities: normal capillary refill; no calf tenderness and no pedal edema Gastrointestinal (Abdomen): normal bowel sounds, soft, nontender, no hepatosplenomegaly Musculoskeletal: No shortening or external rotation of left leg. Left ankle/1st MTPJ plantar and dorsiflexion 5/5. Pain on external and internal rotation of left hip Skin appears intact from limited exam as unable to rotate patient without assistance Skin: no rashes, warm and dry Neurologic: awake; + does not move all extremities and not confused Psychiatric: A+Ox3, euthymic affect Results & Data Results & Data ([facility]) Vital Signs (Past 12 Hours) Vital Signs Temp Pulse Pulse Resp BP BP Pulse Ox 05/07/22 14:05 63 16 154/79 H 97 05/07/22 12:25 60 18 154/79 H 97 05/07/22 09:39 36.2 C L 85 18 201/89 H 98 O2 Del Method 05/07/22 14:05 Room Air 05/07/22 12:25 Room Air 05/07/22 09:39 Room Air Laboratory Results Abnormal lab results 05/07/22 05/07/22 Range/Units 10:50 10:50 RBC 3.25 L (4.20-5.40) M/uL Hgb 10.3 L (12.0-16.0) g/dl Hct 31.4 L (37.0-47.0) % RDW Std Deviation 47.9 H (36.4-46.3) fL Lymph # (Auto) 1.00 L (1.2-3.4) K/uL BUN 26 H (6-23) mg/dl BUN/Creatinine Ratio 26.3 H (10-20) Diagnostic Findings SINGLE VIEW CHEST CLINICAL HISTORY: Preoperative examination. Hip fracture FINDINGS: An AP, portable, upright chest radiograph is compared to study dated 03/09/2022. The heart is enlarged noting atherosclerotic calcification of the thoracic aorta. Pulmonary vasculature is noncongested. Chronic interstitial thickening is similar to previous. The lungs and pleural spaces are clear noting dependent atelectasis. No pneumothorax is seen. The skeletal structures are osteopenic. The bony thorax is grossly intact. IMPRESSION: Cardiomegaly with no active disease in the chest. CT SCAN OF THE LEFT HIP WITHOUT IV CONTRAST CLINICAL HISTORY: Fall. Left hip pain. COMPARISON STUDY: Pelvic CT dated 11/06/2012. Pelvic and left hip radiographs dated 05/07/2022. TECHNIQUE: CT scan of the left hip was performed from the bony pelvis to the femoral shaft. Images are reviewed in the axial, sagittal, and coronal planes. IV contrast was not administered for this examination. A dose lowering technique was utilized adhering to the principles of ALARA. FINDINGS: The skeletal structures are osteopenic. CT confirms a displaced fracture through the base of the greater trochanter. This does not appear to extend into the intertrochanteric left femur. No additional fracture is identified. The visualized left hemipelvis appears intact. There is minimal degenerative change in the left hip. No evidence of avascular necrosis is seen. There is no lytic or blastic lesion. There is hemorrhage around the fracture site. No large hematoma is seen. The regional musculature is normal in a ppearance. There is no left pelvic sidewall or inguinal lymphadenopathy. Diverticular disease is noted in the partially imaged left colon. IMPRESSION: 1. CT confirms the presence of a mildly displaced fracture through the base of the greater trochanter of the left femur. 2. There is no clear CT evidence of intertrochanteric extension. 3. No additional fracture is identified. XR hip LT 2V w pelvis, XR femur LT 2V routine CLINICAL HISTORY: Fall. Left hip pain. COMPARISON STUDY: None. FINDINGS: Subtle lucency within the greater trochanter concerning for a nondisplaced fracture. Soft tissues are unremarkable. There is a left total knee arthroplasty. The mid to distal left femur appears intact. No fracture or dislocation within the right hip or pelvis. The sacrum is intact. IMPRESSION: Subtle lucency within the left greater trochanter concerning for a nondisplaced fracture. Follow-up CT recommended to assess for an intertrochanteric fracture. Medications Administered ER Medications Given: ECG Indication: other (Fall) Rate (beats per minute): 51 Rhythm: normal sinus Findings: + other (Poor R wave progression); no acute ischemic change Comparison ECG Date: from (January 19, 2018) Change: no significant change Code Status & VTE Plan Code Status Full VTE Prophylaxis Plan VTE Prophylaxis will be ordered: Yes PG Care Time/CCT Total # of Minutes Spent Total Time Spent with Patient: Total time spent is greater than 50% in coordination of care (as documented) at patient's floor/unit and/or counseling patient: Coding Level of Care Code 69579 INT INP/OBS CARE MIN Diagnoses Fracture of greater trochanter of left femur S72.112A Fall W19.XXXA Encounter type: initial encounter Obstructive sleep apnea G47.33 Restless leg syndrome G25.81 GERD (gastroesophageal reflux disease) K21.9 HTN (hypertension) I10 HLD (hyperlipidemia) E78.5 Anemia D64.9 Anemia type: unspecified type Asthma J45.909 (1) Fall Encounter type: initial encounter Qualified Code(s): W19.XXXA - Unspecified fall, initial encounter (2) Anemia Anemia type: unspecified type Qualified Code(s): D64.9 - Anemia, unspecified
[2022-05-07] MEDS ORDERED: PANTOprazole 40 MG TAB PO STA (17:04)
[2022-05-07] MEDS ORDERED: LOSARTAN POTASSIUM 50 MG TAB PO STA (17:04)
[2022-05-07] MEDS ORDERED: PREGABALIN 75 MG CAP PO STA (17:04)
[2022-05-07] MEDS ORDERED: hydrALAZINE 10 MG TAB PO STA (17:09)
[2022-05-07] MEDS ORDERED: PRAMIPEXOLE DIHYDROCHLO 0.25 MG TAB PO STA (17:10)
[2022-05-07] MEDS ORDERED: MoRPHine SULFATE 2 MG/ML CARP IV PRN (18:14)
[2022-05-07] MEDS ORDERED: NALOXONE HCL 0.4 MG/1 ML VIAL/CARP IV PRN (18:14)
[2022-05-07] MEDS ORDERED: ONDANSETRON INJ 2 MG/ML 2 ML VIAL IV PRN (18:14)
[2022-05-07] MEDS ORDERED: MAGNESIUM HYDROXIDE SUSP 30 ML UDC PO PRN (18:14)
[2022-05-07] MEDS ORDERED: traMADol HCL 50 MG TABLET PO PRN (18:14)
[2022-05-07] MEDS ORDERED: MoRPHine SULFATE 4 MG/ML 1 ML CARP\\VIAL IV PRN (18:14)
[2022-05-07] MEDS: ASPIRIN 81 MG ECTAB PO SCH (20:31)
[2022-05-07] MEDS: CALCIUM 600MG + VIT D 400 IU TAB PO SCH (20:31)
[2022-05-07] MEDS: hydrALAZINE 10 MG TAB PO SCH (20:32)
[2022-05-07] MEDS: MULTIVITAMIN CHEWABLE TAB PO SCH (20:35)
[2022-05-07] MEDS: ACETAMINOPHEN 500 MG TAB PO SCH (20:36)
[2022-05-07] MEDS: PRAMIPEXOLE DIHYDROCHLO 0.5 MG TAB PO SCH (20:36)
[2022-05-07] MEDS: SIMVASTATIN 20 MG TAB PO SCH (20:36)
[2022-05-07] MEDS: AMITRIPTYLINE HCL 25 MG TAB PO SCH (20:36)
[2022-05-07] MEDS: CeleBREX 200 MG CAP PO SCH (20:37)
[2022-05-07] MEDS: PREGABALIN 75 MG CAP PO SCH (20:39)
[2022-05-07] MEDS: POTASSIUM CHLORIDE 10 MEQ TABCR PO SCH (20:39)
[2022-05-07] MEDS ORDERED: POTASSIUM CHLORIDE 10 MEQ TABCR PO SCH (21:00)
[2022-05-08 08:42] LABS: Basophils # (auto) 0.03 K/uL (0-0.2); Basophils % (auto) 0.7 %; Eosinophils # (auto) 0.18 K/uL (0-0.50); Eosinophils % (auto) 4.1 %; Hemoglobin 9.1 g/dl (12.0-16.0); Immature Granulocytes # (auto) 0.01 K/uL (0.01-0.20); Immature Granulocytes % (auto) 0.2 %; Lymphocytes # (auto) 1.45 K/uL (1.2-3.4); Lymphocytes % (auto) 32.9 %; Mean Corpuscular Hgb Conc 33.7 g/dL (32.0-36.0); Mean Corpuscular Volume 97.8 fL (80.0-100.0); Mean Platelet Volume 11.1 fL (9.4-12.4); Monocytes # (auto) 0.39 K/uL (0.11-0.59); Monocytes % (auto) 8.8 %; Neutrophils # (auto) 2.35 K/uL (1.40-6.50); Neutrophils % (auto) 53.3 %; Platelet Count 173 K/uL (130-400); RDW Coefficient of Variation 13.3 % (11.5-14.5); RDW Standard Deviation 47.3 fL (36.4-46.3); Red Blood Count 2.76 M/uL (4.20-5.40); White Blood Count 4.41 K/ul (4.8-10.8)
[2022-05-08 08:50] LABS: BUN Creatinine Ratio 22.6 (10-20); Calcium 8.6 mg/dl (8.5-10.1); Creatinine Clr Calc Pharmacy 81.7 ml/min; Est GFR (African American) 73.2 ml/min; Est GFR (Non-African American) 63.1 ml/min; Magnesium 1.9 mg/dl (1.7-2.4); Potassium 4.2 mmol/L (3.5-5.1)
[2022-05-08] MEDS: traMADol HCL 50 MG TABLET PO PRN (09:12)
[2022-05-08] MEDS: ASPIRIN 81 MG ECTAB PO SCH ×2 (09:13→21:28)
[2022-05-08] MEDS: CALCIUM 600MG + VIT D 400 IU TAB PO SCH (09:13)
[2022-05-08] MEDS: POTASSIUM CHLORIDE 10 MEQ TABCR PO SCH ×3 (09:14→21:42)
[2022-05-08] MEDS: hydrALAZINE 10 MG TAB PO SCH ×3 (09:14→21:28)
[2022-05-08] MEDS: TORSEMIDE 20 MG TAB PO SCH (09:14)
[2022-05-08] MEDS: ACETAMINOPHEN 500 MG TAB PO SCH ×3 (09:14→21:27)
[2022-05-08] MEDS: MULTIVITAMIN CHEWABLE TAB PO SCH ×2 (09:15→21:42)
[2022-05-08] MEDS: CeleBREX 200 MG CAP PO SCH (09:15)
[2022-05-08] MEDS: LOSARTAN POTASSIUM 50 MG TAB PO SCH (11:16)
[2022-05-08] MEDS: PANTOprazole 40 MG TAB PO SCH (11:16)
--- NOTE | 2022-05-08 11:16 | Orthopedic Progress Note ---
Date of Service May 08, 2022 Assessment & Plan (1) Fracture of greater trochanter of left femur: Plan: Patient was educated regarding today's findings. Conservative care measures were discussed. She understands that this is a nonsurgical break. She may continue to use ice over the area several times per day. PT and OT have been ordered. Return to home will depend on how she does with therapy. She states her son is staying with her for the next several weeks and will be around to help her. Weight-bear as tolerated. We will continue to follow while she is admitted. Admission and Anticipated Discharge Date Admission Date: May 07, 2022 Subjective Patient is seen in her room this morning. She has no complaints. She describes some minor soreness over her left hip. She states she has already been out of bed into the bathroom using her walker. She is currently sitting in a bedside chair. No other complaints at this time. She is hoping to go home from the hospital. Physical Exam Physical Exam: General: Well-developed, well-nourished, elderly female, in no acute distress. Sitting in a chair. Eating breakfast. Alert and oriented. Conversive. Skin: Warm and dry with good turgor. No rashes. She does have notable pe ripheral edema. Musculoskeletal: Patient has intact motor function of the toes, ankles, knees, and hips. She has no discomfort with palpation of the lower legs. There is some soreness with palpation along the left trochanter. Gentle motion of the hips does not cause any increase in pain. Neurologic: Gross sensation is intact across both lower extremities by soft touch. Peripheral pulses are 2+. Results & Data ([facility]) Vital Signs (Past 12 Hours) Vital Signs Temp Pulse Resp BP Pulse Ox O2 Del Method O2 Del Method 05/08/22 11:03 36.6 C 64 18 109/67 96 Room Air 05/08/22 07:18 36.6 C 59 L 20 108/69 97 Room Air 05/08/22 02:14 Room Air Laboratory Results CBC obtained today shows a white count of 4.4. H&H of 9.1 and 27.0. Normal differential. PRP is also entirely unremarkable. Vitamin D level is elevated at greater than 120.
[2022-05-08] MEDS: TRIAMCINOLONE ACET NASAL SPRAY 10.8ML BTL NAE SCH (11:17)
[2022-05-08] MEDS: PREGABALIN 75 MG CAP PO SCH ×2 (11:18→21:42)
--- NOTE | 2022-05-08 12:28 | Electrocardiogram Report ---
Test Reason : Blood Pressure : / mmHG Vent. Rate : 061 BPM Atrial Rate : 061 BPM P-R Int : 150 ms QRS Dur : 080 ms QT Int : 422 ms P-R-T Axes : -07 -10 068 degrees QTc Int : 424 ms Poor data quality, interpretation may be adversely affected Normal sinus rhythm Possible Old Anterior infarct Abnormal ECG When compared with ECG of 07-MAY-2022 10:24, No significant change was found Confirmed by Filiberto Otto ([id number]) on 05/08/2022 12:27:40 PM Referred By: REFERRED SELF Confirmed By:Filiberto Otto
[2022-05-08] MEDS ORDERED: CYANOCOBALAMIN 1000 MCG/ML VIAL IM ONE (15:59)
--- NOTE | 2022-05-08 16:01 | Hospitalist Progress Note ---
Date of Service May 08, 2022 Assessment & Plan (1) Fracture of greater trochanter of left femur: Plan: Consult orthopedics appreciated-non operative, WBAT, and f/u with Ortho Dr. Causey in 2 weeks with xrays. continue tramadol and tylenol prn dc Celebrex-theoretically safe but with gastric bypass I am concerned about risk of anastomotic ulcer formation Vitamin D level is quite high > 120. Fortunately Ca++ level normal. Advised to hold vitamin D supplement for 1 week and then restart only 1 tab daily rather than the 4 she was taking Recommend DEXA scan as an outpatient for consideration of osteoporosis treatment PT/OT recommend home with home health-she was able to go up and down stairs here at hospital (2) Fall: Plan: No concerning features from history. Mechanical fall No further work-up required unless she continues to fall on the marcelo or is dizzy on current anti-hypertensives (3) Obstructive sleep apnea: Plan: CPAP HS (4) Anemia: Plan: with a h/o gastric bypass surgery, malabsorption is overdue for usual B12 injection by 2-3 months-give B12 IM now x 1 continue MVI with Fe follow with PCP hgb at baseline of 9-10 (5) Restless leg syndrome: Plan: Continue Mirapex 0.5 mg p.o. at bedtime (6) GERD (gastroesophageal reflux disease): Plan: continue PPI (7) HTN (hypertension): Plan: BP controlled to mildly elevated Continue home hydralazine, losartan, torsemide, KCl (8) HLD (hyperlipidemia): Plan: Continue simvastatin 20 mg p.o. at bedtime (9) Asthma: Plan: No acute exacerbation suspected Uses Flovent discus as needed Plan VTE prophylaxis - aspirin 81 mg p.o. twice daily as recommended by orthopedics Disposition - continued stay while CM looking for home health agency. Is medically stable for discharge at this time. Hopeful for discharge to home tomorrow Admission and Anticipated Discharge Date Admission Date: May 07, 2022 Anticipated date of discharge: 05/09/22 Subjective Feeling better. has minimal pain in left hip, controlled with tramadol. Worked with PT today and was able to walk the halls and go up and down stairs. Denies pain in any other joints. No CP,SOB,abd pain. Did not hit head. She is requesting her B12 shot while here because she has not had the last 2 months of shots while trying to get in with her new PCP. Has a h/o gastric bypass and chronic B12 deficiency Physical Exam Constitutional: WD/WN, vitals as above + morbidly obese Respiratory: normal respiratory effort, lungs clear to auscultation Cardiovascular: RRR, no murmur, no edema Musculoskeletal: Extremities: + extremities abnormal to inspection (left buttocks with ecchymosis) Results & Data Results & Data ([facility]) Vital Signs (Past 12 Hours) Vital Signs Temp Pulse Resp BP Pulse Ox O2 Del Method 05/08/22 15:22 36.4 C L 65 20 162/97 H 96 Room Air 05/08/22 11:03 36.6 C 64 18 109/67 96 Room Air 05/08/22 07:18 36.6 C 59 L 20 108/69 97 Room Air Laboratory Results CBC and BMP reviewed PG Care Time/CCT Total # of Minutes Spent Total Time Spent with Patient: Total time spent is greater than 50% in coordination of care (as documented) at patient's floor/unit and/or counseling patient: Coding Level of Care Code 66011 SUB INP/OBS CARE 235MIN Diagnoses Fracture of greater trochanter of left femur S72.112A Fall W19.XXXA Encounter type: initial encounter Obstructive sleep apnea G47.33 Anemia D64.9 Anemia type: unspecified type Restless leg syndrome G25.81 GERD (gastroesophageal reflux disease) K21.9 HTN (hypertension) I10 HLD (hyperlipidemia) E78.5 Asthma J45.909 (1) Fall Encounter type: initial encounter Qualified Code(s): W19.XXXA - Unspecified fall, initial encounter (2) Anemia Anemia type: unspecified type Qualified Code(s): D64.9 - Anemia, unspecified
[2022-05-08] MEDS: PRAMIPEXOLE DIHYDROCHLO 0.5 MG TAB PO SCH (21:26)
[2022-05-08] MEDS: SIMVASTATIN 20 MG TAB PO SCH (21:26)
[2022-05-08] MEDS: AMITRIPTYLINE HCL 25 MG TAB PO SCH (21:27)
[2022-05-09] MEDS: PREGABALIN 75 MG CAP PO SCH (08:16)
[2022-05-09] MEDS: MULTIVITAMIN CHEWABLE TAB PO SCH (08:16)
[2022-05-09] MEDS: traMADol HCL 50 MG TABLET PO PRN (08:16)
[2022-05-09] MEDS: POTASSIUM CHLORIDE 10 MEQ TABCR PO SCH ×2 (08:16→13:41)
[2022-05-09] MEDS: LOSARTAN POTASSIUM 50 MG TAB PO SCH (08:17)
[2022-05-09] MEDS: ACETAMINOPHEN 500 MG TAB PO SCH ×2 (08:17→13:41)
[2022-05-09] MEDS: TORSEMIDE 20 MG TAB PO SCH (08:17)
[2022-05-09] MEDS: PANTOprazole 40 MG TAB PO SCH (08:17)
[2022-05-09] MEDS: hydrALAZINE 10 MG TAB PO SCH ×2 (08:17→13:41)
[2022-05-09] MEDS: TRIAMCINOLONE ACET NASAL SPRAY 10.8ML BTL NAE SCH (08:18)
[2022-05-09] MEDS: ASPIRIN 81 MG ECTAB PO SCH (08:18)
--- NOTE | 2022-05-09 10:19 | Orthopedic Progress Note ---
Date of Service May 09, 2022 Assessment & Plan (1) Fracture of greater trochanter of left femur: Plan: Patient is doing well she will continue with weightbearing as tolerated on the left lower extremity with a walker. She will continue with aspirin 81 mg twice a day for DVT prophylaxis She will continue with PT OT per therapy and hospitalist recommendations if needed outpatient From my perspective patient can be discharged if PT agrees she is safe. Continue with pain management per primary ice to the left hip with towel layer prn She will follow-up in our office as an outpatient in 2 weeks with imaging at that time She was advised if any changes, concerns or questions she can call the office. Patient states she is very familiar with the office and has the number. Present on Admission?: Yes Admission and Anticipated Discharge Date Admission Date: May 08, 2022 Subjective Patient is a 66-year-old female who is being followed by Dr. Kayla birmingham for a nonoperative left trochanteric fracture. She seen this morning bedside sitting upright in bed. Patient is pleasant and in good spirits. She states she is not having much pain reports its more of an ache in the left outer hip. She denies any groin pain at this time. She states she just completed physical therapy going up and down the steps. She is anticipating that she is going home today. She states she feels she is ready to go home. She denies any fever, chills, chest pain or shortness of breath. She offers no concerns. Review of Systems Review of Systems: Please refer to HPI Physical Exam Physical Exam: General: Patient is alert and oriented x3 no acute distress. Pleasant conversive Musculoskeletal and integumentary: Patient has resolving ecchymosis over lateral aspect of left hip. Patient has mild tenderness over this area. Minimal tenderness with palpation in the left groin. Patient tolerates left lower extremity logroll and hip flexion and abduction. Patient is able to perform straight leg raise off of the bed. Calf is soft and nontender. Dorsal pedis pulse 2. Results & Data ([facility]) Vital Signs (Past 12 Hours) Vital Signs Temp Pulse Resp BP Pulse Ox O2 Del Method 05/09/22 07:27 36.4 C L 64 18 132/67 97 Room Air
--- NOTE | 2022-05-09 14:48 | Discharge Summary ---
Date of Service May 09, 2022 Admission HPI Per Admitting Provider Andria Dove is a 66 year old female who presents to the ER with left hip pain after tripping on a rug earlier today. She reports wearing rubber shoes on a rubber mat and when she went to turn, her legs did not turn with her. She denies any shortness of breath, chest pain, dizziness prior to falling. She denies hitting her head or any loss of consciousness. On trying to get up she felt a pop in her left hip. CT of her left hip confirms a mildly displaced fractures through the base of the greater trochanter of the left femur. She denies any other pain including her wrist or back. She denies any known osteoporosis but reports no recent DEXA scan within the last few years. She takes a vitamin D supplement daily. After 8 mg IV morphine in the emergency room she reports her pain is still an 8 out of 10 severity. She is yet to get out of bed in the emergency room but is in considerable pain just lying in bed. She has not taken any of her usual medications today. Principal Diagnosis Left greater trochanteric fracture, fall Discharge Exam Constitutional WD/WN, vitals as above + morbidly obese Respiratory normal respiratory effort, lungs clear to auscultation Cardiovascular RRR, no murmur, no edema Musculoskeletal Extremities: + extremities abnormal to inspection (left buttocks with ecchymosis) Discharge Data Allergies Allergy/AdvReac Type Severity Reaction Status Date / Time atenolol Allergy Intermediate RASH Verified 05/07/22 15:36 benazepril AdvReac Intermediate COUGH Verified 05/07/22 15:36 Consultations 05/07/22 14:58 ED Decision to Admit Stat 05/07/22 16:01 Consult Orthopedic Surgery Routine Ordered Studies 05/07/22 12:27 CT hip LT wo con Stat Hospital Course (1) Fracture of greater trochanter of left femur: Consult orthopedics appreciated-non operative, WBAT, and f/u with Ortho Dr. Causey in 2 weeks with xrays. continue tramadol and tylenol prn Vitamin D level is quite high > 120. Fortunately Ca++ level normal. Advised to hold vitamin D supplement for 1 week and then restart only 1 tab daily rather than the 4 she was taking Recommend DEXA scan as an outpatient for consideration of osteoporosis treatment PT/OT recommend home with home health-she was able to go up and down stairs here at hospital (2) Fall: No concerning features from history. Mechanical fall No further work-up required unless she continues to fall on the marcelo or is dizzy on current anti-hypertensives (3) Obstructive sleep apnea: CPAP HS (4) Anemia: with a h/o gastric bypass surgery, malabsorption is overdue for usual B12 injection by 2-3 months-gave B12 IM x 1 while here continue MVI with Fe follow with PCP hgb at baseline of 9-10 (5) Restless leg syndrome: Continue Mirapex 0.5 mg p.o. at bedtime (6) GERD (gastroesophageal reflux disease): continue PPI (7) HTN (hypertension): BP controlled to mildly elevated Continue home hydralazine, losartan, torsemide, KCl (8) HLD (hyperlipidemia): Continue simvastatin 20 mg p.o. at bedtime (9) Asthma: No acute exacerbation suspected Uses Flovent discus as needed Plan VTE prophylaxis - aspirin 81 mg p.o. twice daily as recommended by orthopedics Disposition - dc to home with home health today Home Health Attestation I certify that this patient is under my care and that I, or a physicians orthodontic assistant working with me, had a face to-face encounter that meets the home health [id number] encounter requirements with this patient. The encounter with the patient was in whole, or in part, for the following medical condition, which is the primary reason for home health care (list medical condition): Left greater trochanteric fracture (non-operative) I certify that, based on my findings, the following services are medically necessary home health services: My clinical findings support the need for the above services because: OT Assess ADL Status and Restore Function w ADLs PT Assessment for Endurance / Balance / Strength PT Eval for Safety and Mobility PT Eval for Safety, Gait Training, Assistive Devices PT Gait and Balance Training, Strengthening and Safety Safety Further, I certify that my clinical findings support that this patient is homebound (i.e. absences from home require considerable and taxing effort and are for medical reasons or buddhism services or infrequently or of short duration when for other reasons) because: Supportive Aid - Walker Certification for Home Health Services: Based on the above findings, I certify that this patient is confined to the home and needs intermittent care home care, physical therapy and/or speech therapy or continues to need occupational therapy. The patient is under my care, and I have initiated the establishment of the plan of care. This patient will be followed by a physician who will periodically review the plan of care. Total Time Total Time Spent Total Time Spent (In Minutes): 35 min Discharge Plan Discharge Items Patient Disposition: Home - Home Health Services Reason For Visit: LEFT GREATER TROCHANTERIC FRACTURE Discharge Diagnosis: Left greater trochanter fracture Condition on Discharge: Good Activity: As commented below Bathing: No limitations Non-emergency contact: Primary Care Provider and Surgeon Call non-emergency contact if: you have any medication questions, your symptoms worsen and your pain is not controlled Follow-up/Referrals: Rivka Regalado [Primary Care Provider] - (Follow up within 1-2 weeks.) Enrique Seo PA-C [Physician Tubing Machine Tender] - 05/20/22 3:30 pm Diet: Heart Healthy Cj Attending Provider Instructions: You can take tramadol as needed for moderate-severe pain and tylenol for milder pain. Debratl Ammonia Refrigeration Worker Provider Instructions: ORTHOPEDIC SURGERY: continue with weightbearing as tolerated on the left lower extremity with a walker. continue with aspirin 81 mg twice a day for DVT prophylaxis continue to use ice to the left hip with a towel layer 20 min as needed for pain follow-up in our office as an outpatient in 2 weeks with imaging at that time call the office [phone] for an appointment if not already scheduled Please call with any changes, concerns,or questions at [phone] Pending Studies at Discharge: No Stand-Alone Forms: My [facility] [employer], Smoking Cessation Medications and DC Order Prescriptions: New acetaminophen [Tylenol Extra Strength] 500 mg Tablet 1,000 mg PO TID Qty: 60 0RF Rx Instructions: OTC tramadol 50 mg Tablet 50 mg PO Q4H PRN (Reason: pain) Qty: 20 0RF Continued amitriptyline 25 mg Tablet 25 mg PO HS Qty: 0 triamcinolone acetonide 55 mcg aerosol,spray 2 spray intranasal DAILY Qty: 16.9 11RF Rx Instructions: administer into each nostril torsemide 20 mg tablet 40 mg PO QAM omeprazole 40 mg Capsule,Delayed Release(Dr/Ec) 40 mg PO QAM simvastatin 20 mg Tablet 20 mg PO HS Flovent Diskus 100 mcg/actuation Blister With Device 1 inh INHALATION BID PRN (Reason: SHORT OF BREATH) pramipexole [Mirapex] 0.25 mg Tablet 2 tab PO HS albuterol sulfate [Ventolin HFA] 90 mcg/actuation Hfa Aerosol Inhaler 2 puff INHALATION QID PRN (Reason: SHORT OF BREATH) pregabalin [Lyrica] 75 mg Capsule 75 mg PO BID calcium citrate-vitamin D3 [Citracal + D Maximum] 315-250 mg-unit Tablet 1 tab PO BID cyanocobalamin (vitamin B-12) 1,000 mcg/mL Kit 1 dose IM MONTHLY Rx Instructions: PER PT "2 MONTHS BEHIND". Flintstones Complete Tablet,Chewable 1 tab PO BID losartan 50 mg Tablet 50 mg PO QAM hydralazine 10 mg Tablet 10 mg PO TID potassium chloride 8 mEq Capsule, Extended Release 8 meq PO TID Changed aspirin 81 mg Tablet,Delayed Release (Dr/Ec) 81 mg PO BID Qty: 60 0RF Discharge Orders: Discharge Order (Routine); Ordered 05/09/22 Ordered By: Chelle Ashton Admission Data Admit Date/Time: 05/08/22 15:34 Attending Provider: Chelle Ashton Admit Provider: Juan Antonio Ford Primary Care Provider: Rivka Regalado Other Providers: Juan Antonio Ford ; Andre Causey ; [facility] Other Interventions: Discharge Summary Assessment (RN) Last Done: 05/09/22 13:15 Coding Level of Care Code HOSP INP/OBS DISCH >30 MIN Diagnoses Fracture of greater trochanter of left femur S72.112A Fall W19.XXXA Encounter type: initial encounter Obstructive sleep apnea G47.33 Anemia D64.9 Anemia type: unspecified type Restless leg syndrome G25.81 GERD (gastroesophageal reflux disease) K21.9 HTN (hypertension) I10 HLD (hyperlipidemia) E78.5 Asthma J45.909
== END 2022-05-09 17:16 | disposition home health service (06) | DRG 536 ==
LOC: ED 09:37 → 3N 09:37 → SUATTDRO 16:07 → 3N 17:17

== ENCOUNTER 2024-10-27 10:55 | Inpatient (IN) ==
[2024-10-27] MEDS: ACETAMINOPHEN 500 MG TAB PO STA (12:41)
--- NOTE | 2024-10-27 13:04 | XRay Report ---
XR wrist RT w scaphoid, XR hand RT min 3V routine, XR forearm RT 2V CLINICAL HISTORY: pain, fall COMPARISON: None FINDINGS: There is an acute comminuted intra-articular distal radius fracture with mild posterior di splacement and apex anterior angulation. There is a nondisplaced fracture at the ulnar styloid. No ot her fracture or dislocation seen at the right forearm, right wrist or right hand. IMPRESSION: Acute distal radius and ulna fractures. ACT 112: Negative or not required by law. Electronically signed by: Jesse Mcadams M.D. 10/27/2024 1:03 PM
--- NOTE | 2024-10-27 13:22 | XRay Report ---
XR knee LT 3V CLINICAL HISTORY: pain, fall COMPARISON: 05/07/2022 FINDINGS: Left knee prosthesis shows no hardware complication. Stable chronic small calcification ad jacent to the medial femoral condyle. No fracture or dislocation seen. IMPRESSION: No fracture seen. ACT 112: Negative or not required by law. Electronically signed by: Jesse Mcadams M.D. 10/27/2024 1:20 PM
--- NOTE | 2024-10-27 13:43 | Emergency Department Note ---
Impression & Plan Distal radial fracture, Fracture of right ulnar styloid, Fall, Acute pain of left knee ED Provider Note CHIEF COMPLAINT: Right wrist pain, left knee pain, fall HISTORY OF PRESENT ILLNESS: This 69-year-old female patient presents to the emergency department via private vehicle complaining of pain in the right wrist and left knee after she fell off of a stool she was standing on. The patient states she landed on her outstretched right hand. She states she also believes she struck her left knee on the ground. She is having some difficulty with ambulating due to the left knee pain. The patient is not able to move their wrist. The patient states the pain is throbbing and 10/10. No laceration, no weakness. No numbness or tingling. The patient denies any other injury. The patient is able to move their fingers and elbow without difficulty. The patient has not had a previous fracture to this wrist. The patient has taken no medication for the pain. REVIEW OF SYSTEMS: A 6 system review of systems was performed with positives and pertinent negatives in the HPI. ALLERGIES: Atenolol, benazepril PHYSICAL EXAM: Vital Signs: Reviewed Nurse's notes, vital signs stable. GENERAL: This is a 69-year-old female, in no acute distress, but appears to be in pain, well-developed, well-nourished. NEURO: Alert and oriented to person place and time. Normal sensation to light and sharp touch. MUSCULOSKELETAL: There is no deformity of the right wrist. There is tenderness and edema over the distal radius and ulna. There is snuff box tenderness. Range of motion is limited due to pain in the wrist. There is tenderness of the hand and thumb on the right. There is no tenderness at the elbow. Superintendent Power strength 3/5. Radial pulse 2+. There is tenderness to palpation of the anterior inferior left knee. No joint line tenderness. The patient maintains full range of motion of the left knee. She is able to ambulate, though this does increase her pain. SKIN: Normal and intact. The hand is warm and well perfused with capillary refill less than 2 seconds. EMERGENCY DEPARTMENT COURSE: I examined the patient. Patient initially medicated with p.o. acetaminophen. X-rays of the right wrist, hand, forearm and left knee were completed and reviewed by myself radiologist as noted. X-rays of the left knee were negative. X-ray of the right wrist was concerning for a comminuted, displaced/angulated distal radius fracture as well as an ulnar styloid fracture. I discussed the case with Dr. Kayla birmingham, orthopedic surgeon on-call. He did review the images. He did recommend the patient be admitted to the medicine service and he will plan for surgery tomorrow. He did request a CT scan of the wrist for surgery planning. The patient was updated. She was agreeable with this plan. IV access was obtained, labs were drawn. Patient medicated with IV morphine and Zofran. CT imaging of the right wrist was completed reviewed myself radiologist as noted. I discussed the case with Dr. Hamilton, [facility] hospitalist physician. Please see hospitalist dictation regarding ongoing management and inpatient care of this patient. A sugartong orthoglass splint was placed under my direction and the position was satisfactory. Neurovascular status rechecked and intact. The patient was placed in an arm sling. Differential diagnosis includes fracture, subluxation, dislocation, contusion, ligamentous injury, neurovascular, compartment syndrome, as well as other pathologies. I attest that I have personally reviewed the patient's current medication list. Blood Pressure Screening: Patient was found to have a slightly elevated blood pressure due to circumstances. I do not believe that the patient requires hypertension monitoring. The chart was completed utilizing [employer] Speech voice recognition software. Grammatical errors, random word insertions, pronoun errors, and incomplete sentences are an occasional consequence of this system due to software limitations, ambient noise, and hardware issues. Any formal questions or concerns about the content, text, or information contained within the body of this dictation should be directly addressed to the provider for clarification. Past Med/Surg History Problem List (Updated 10/27/24 @ 15:59 by Paula Claix PA-C) Acute pain of left knee (Acute) Fall (Acute) Fracture of right ulnar styloid (Acute) Distal radial fracture (Acute) Bilateral sacroiliitis s/p b/l SI joint RF denervation 02/10/24 [facility] Overactive bladder Urgency incontinence Urinary symptom or sign Fracture of greater trochanter of left femur s/p fall 04/2022 Anemia (Acute) Obstructive sleep apnea Nocturnal hypoxemia CPAP DEVICE (DOES NOT USE EVERY NIGHT) GERD (gastroesophageal reflux disease) Restless leg syndrome Morbid obesity with BMI of 40.0-44.9, adult Asthma Osteoarthritis HLD (hyperlipidemia) HTN (hypertension) Medical History Pulmonary HTN est PASP 41mmHg per 04/22/24 E[facility] Chronic right-sided heart failure follows with [facility] Cardio; on entresto and spironolactone Bilateral lower extremity edema chronic; per Cardio note 04/21/24: 'likely a combination of lymphedema and right-sided heart failure' Morbid obesity Urgency incontinence Osteoarthritis Bilateral sacroiliitis s/p b/l SI joint RF denervation 02[place]10/[place] [facility] [place]x of fracture of hip (04/2022) left hip, due to fall, no surgery indicated Hx of falling (04/2022) fractured left hip- no surgery Hx of basal cell carcinoma Overactive bladder gets botox injections q 3-4 months Obstructive sleep apnea severe CHELSIE with significant hypoxemia; pt is 'semi-compliant' with CPAP Restless leg syndrome HLD (hyperlipidemia) HTN (hypertension) GERD (gastroesophageal reflux disease) AVNRT (AV mica re-entry tachycardia) follows with cardio Dr. de Q6 months; s/p ablation 02/2018 History of colon polyps Hx of diabetes mellitus no longer due to gastric bypass, now "prediabetic range" History of anemia Hx of supraventricular tachycardia hx pSVT/AV node reentrant tachycardia; s/p ablation 02/2018; follows with Cardio Neuropathy bilateral legs Chronic back pain Asthma stable Surgical History History of orthopedic surgery b/l SI joint RF denervation 02/10/24 [facility] [place] MAC without issue Hx of basal cell carcinoma excision History of radiofrequency ablation procedure for cardiac arrhythmia (2018) [facility] History of anesthesia reaction (2018) pt scheduled for R shoulder scope 01/19/18 [facility] [place]; per anesthesiology progress note, "Had right interscalene nerve block under sedation followed by IV induction of GA. After moving pt to beach chair position, pt developed bradycardia as low as 12 bpm. Pulse was not palpable and chest compressions were administered. Glycopyrrolate 0.4mg and atropine 1 mg was given IV. HR responded to 50's and SBP 117 Torr. Case cancelled. Pt emerged from anesthesia without difficulty. She is presently AAO, VSS in PACU. 12 lead EKG in PACU not significantly changed from previous. Discussed with clinical psychology professor Dr. De who advised transfer to ED for evaluation and observation. Discussed with pt and her sister who expressed understanding. Transfer to ED by EMS is pending" History of colonoscopy History of bunionectomy left foot x 2 History of shoulder surgery (06/2018) R shoulder arthroscopy 07/21/18: GA: MAC#3, ETT#7.5n DL x 1 atraumatic, Gr View 1 History of esophagogastroduodenoscopy (EGD) History of tooth extraction total mouth History of hysterectomy History of bilateral tubal ligation History of total knee replacement bilat H/O gastric bypass (~03/2017) Family History Mother Family hx of colon cancer Other Cancer Heart disease No family history of adverse response to anesthesia No family history of bleeding disorder Social History Smoking Status: Former smoker Second Hand Exposure: No; Do You Dip or Chew Tobacco: No; Hx Alcohol Use: No Hx Substance Use: No Preferred Language: Sammarinese Communication Ability: Effective Inclusion Specialist Required: No Beliefs That Will Affect Care: None Current Living Situation: Spouse Feels Safe at Home: Yes Assistive Devices: Cane, Denture - Upper, Denture - Lower and Glasses Allergies Allergies Allergy/AdvReac Type Severity Reaction Status Date / Time atenolol Allergy Intermediate RASH Verified 08/23/24 14:06 benazepril AdvReac Intermediate COUGH Verified 08/23/24 14:06 Home Meds Home Medications Medication Instructions Recorded Confirmed albuterol sulfate 90 mcg/actuation 2 puff inhalation QID PRN SHORT OF 06/10/18 10/27/24 aerosol inhaler (Ventolin HFA) BREATH calcium 315 mg (as 1 tab PO BID 06/10/18 10/27/24 citrate)-vitamin D3 6.25 mcg (250 unit) tablet (Citracal + Vitamin D Maximum) cyanocobalamin (vitamin B-12) 0 dose IM MONTHLY 06/10/18 10/27/24 1,000 mcg/mL injection kit omeprazole 40 mg capsule,delayed 40 mg PO QAM 06/10/18 10/27/24 release pediatric multivitamin no.76 1 tab PO BID 06/10/18 10/27/24 (Flintstones Complete chewable tablet) pregabalin 75 mg capsule (Lyrica) 75 mg PO BID 06/10/18 10/27/24 simvastatin 20 mg tablet 20 mg PO HS 06/10/18 10/27/24 pramipexole 0.25 mg tablet 0.5 mg PO HS 05/25/23 10/27/24 acetaminophen 500 mg tablet 1,000 mg PO TID PRN Pain 02/02/24 10/27/24 (Tylenol Extra Strength) aspirin 81 mg tablet,delayed 81 mg PO QPM 02/02/24 10/27/24 release sacubitril 97 mg-valsartan 103 mg 1 tab PO BID 02/02/24 10/27/24 tablet (Entresto) spironolactone 25 mg tablet 25 mg PO QAM 04/27/24 10/27/24 Results & Data (ED) Vital Signs Vital Signs - 24 hr 10/27/24 11:24 Temperature 36.8 C Temperature Source Temporal Artery Scan Pulse Rate 93 H Respiratory Rate 19 Respiratory Effort / Characteristics Non-Labored Spontaneous Respiratory Depth Normal Blood Pressure 142/65 H Blood Pressure Mean 90 Pulse Oximetry 91 Oxygen Delivery Method Room Air Sepsis Recent Fever Within 48 Hours No Sepsis New/Unexplained Change in Mental Status No Sepsis Action Taken by Nursing No Action Required Laboratory Data 10/27/24 14:04 10/27/24 14:04 Lab Results 10/27/24 Range/Units 14:04 WBC 7.22 (4.8-10.8) K/ul RBC 3.65 L (4.20-5.40) M/uL Hgb 11.7 L (12.0-16.0) g/dl Hct 35.0 L (37.0-47.0) % MCV 95.9 (80.0-100.0) fL MCH 32.1 (25.0-34.0) pg MCHC 33.4 (32.0-36.0) g/dL RDW Std Deviation 45.8 (36.4-46.3) fL RDW Coeff of Carlos 13.0 (11.5-14.5) % Plt Count 220 (130-400) K/uL MPV 11.2 (9.4-12.4) fL Immature Gran % (Auto) 0.4 % Neut % (Auto) 76.5 % Lymph % (Auto) 16.1 % Bartholomew % (Auto) 6.2 % Eos % (Auto) 0.4 % Baso % (Auto) 0.4 % Neut # (Auto) 5.52 (1.40-6.50) K/uL Lymph # (Auto) 1.16 L (1.20-3.40) K/uL Bartholomew # (Auto) 0.45 (0.11-0.59) K/uL Eos # (Auto) 0.03 (0.00-0.50) K/uL Baso # (Auto) 0.03 (0.00-0.20) K/uL Immature Gran # (Auto) 0.03 (0.01-0.20) K/uL PT 9.8 (9.0-12.0) Seconds INR 0.9 (0.9-1.1) APTT 26 (21-31) Seconds PTT Ratio 1.0 Sodium 142 (136-145) mmol/L Potassium 4.3 (3.5-5.1) mmol/L Chloride 107 (98-107) mmol/L Carbon Dioxide 29 (21-32) mmol/L Anion Gap 6 (3-11) BUN 21 (6-23) mg/dl Creatinine 0.83 (0.6-1.2) mg/dl Est Cr Clr Drug Dosing 86.9 ml/min eGFR 75.32 BUN/Creatinine Ratio 25.3 H (10-20) Glucose 121 H (70-99(Fasting)) mg/dl Calcium 9.0 (8.6-10.3) mg/dl Total Bilirubin 0.5 (0.2-1.0) mg/dl AST 19 (13-39) U/L ALT 12 (7-52) U/L Alkaline Phosphatase 81 (34-104) U/L Total Protein 6.4 (6.0-8.3) gm/dl Albumin 3.7 (3.4-5.0) gm/dl Globulin 2.7 (2.5-4.0) gm/dl Albumin/Globulin Ratio 1.4 (0.9-2) Administered Medications Discontinued Medications Acetaminophen (Acetaminophen 500 Mg Tab) 1,000 mg PO NOW STA Stop: 10/27/24 12:32 Last Admin: 10/27/24 12:41 Dose: 1,000 mg Documented By: Morphine Sulfate (Morphine Sulfate 4 Mg/Ml 1 Ml Carp\\Vial) 4 mg IV NOW STA Stop: 10/27/24 13:55 Last Admin: 10/27/24 14:19 Dose: 4 mg Documented By: YONAS Ondansetron HCl (Ondansetron Inj 2 Mg/Ml 2 Ml Vial) 4 mg IV NOW STA Stop: 10/27/24 13:55 Last Admin: 10/27/24 14:20 Dose: 4 mg Documented By: YONAS Imaging Data Radiologist's Impression: Forearm X-Ray 10/27/24 12:31 XR wrist RT w scaphoid, XR hand RT min 3V routine, XR forearm RT 2V CLINICAL HISTORY: pain, fall COMPARISON: None FINDINGS: There is an acute comminuted intra-articular distal radius fracture with mild posterior displacement and apex anterior angulation. There is a nondisplaced fracture at the ulnar styloid. No other fracture or dislocation seen at the right forearm, right wrist or right hand. IMPRESSION: Acute distal radius and ulna fractures. ACT 112: Negative or not required by law. Electronically signed by: Jesse Mcadams M.D. 10/27/2024 1:03 PM Hand X-Ray 10/27/24 12:31 XR wrist RT w scaphoid, XR hand RT min 3V routine, XR forearm RT 2V CLINICAL HISTORY: pain, fall COMPARISON: None FINDINGS: There is an acute comminuted intra-articular distal radius fracture with mild posterior displacement and apex anterior angulation. There is a nondisplaced fracture at the ulnar styloid. No other fracture or dislocation seen at the right forearm, right wrist or right hand. IMPRESSION: Acute distal radius and ulna fractures. ACT 112: Negative or not required by law. Electronically signed by: Jesse Mcadams M.D. 10/27/2024 1:03 PM Wrist X-Ray 10/27/24 12:31 XR wrist RT w scaphoid, XR hand RT min 3V routine, XR forearm RT 2V CLINICAL HISTORY: pain, fall COMPARISON: None FINDINGS: There is an acute comminuted intra-articular distal radius fracture with mild posterior displacement and apex anterior angulation. There is a nondisplaced fracture at the ulnar styloid. No other fracture or dislocation seen at the right forearm, right wrist or right hand. IMPRESSION: Acute distal radius and ulna fractures. ACT 112: Negative or not required by law. Electronically signed by: Jesse Mcadams M.D. 10/27/2024 1:03 PM Knee X-Ray 10/27/24 12:50 XR knee LT 3V CLINICAL HISTORY: pain, fall COMPARISON: 05/07/2022 FINDINGS: Left knee prosthesis shows no hardware complication. Stable chronic small calcification adjacent to the medial femoral condyle. No fracture or dislocation seen. IMPRESSION: No fracture seen. ACT 112: Negative or not required by law. Electronically signed by: Jesse Mcadams M.D. 10/27/2024 1:[address] 10/27/24 14:10 CT wrist RT wo con CLINICAL HISTORY: fracture, 3D recon for preop planning TECHNIQUE: Thin section axial CT images of the right wrist. Sagittal and coronal reformats were obtained. Three-dimensional reformats were created on a workstation. DLP is 302. COMPARISON STUDY: X-ray earlier today FINDINGS: There is an acute extensively comminuted fracture with intra-articular extension at the distal radius. There is one half shaft width posterior displacement of the largest dorsal fragment. There is mild apex anterior angulation. Largest intra-articular gap measures 3 mm. There is minimal step-off of some of the fragments. There is an acute nondisplaced fracture at the base of the ulnar styloid. No other fracture seen at the wrist. There are mild degenerative changes. No significant soft tissue hematoma seen. IMPRESSION: Acute distal radius and ulna fractures ACT 112: Negative or not required by law. Electronically signed by: Jesse Mcadams M.D. 10/27/2024 2:57 PM Discharge Plan Visit Data Chief Complaint: Wrist Pain Stated Complaint: FALL, CONCERN OF INJURY TO R WRIST ED Provider: Ara Olson ED Midlevel Provider: Paula Calix Discharge Problem: Distal radial fracture, Fracture of right ulnar styloid, Fall, Acute pain of left knee Patient Disposition: Admitted As Inpatient Condition: Good Forms Stand Alone Forms: [facility] Prescriptions Prescriptions: No Action pramipexole 0.25 mg tablet 0.5 mg PO HS omeprazole 40 mg Capsule,Delayed Release(Dr/Ec) 40 mg PO QAM simvastatin 20 mg Tablet 20 mg PO HS albuterol sulfate [Ventolin HFA] 90 mcg/actuation Hfa Aerosol Inhaler 2 puff INHALATION QID PRN (Reason: SHORT OF BREATH) Patient Comments: 10/27- no fill history unable to verify pregabalin [Lyrica] 75 mg Capsule 75 mg PO BID calcium citrate-vitamin D3 [Citracal + D Maximum] 315-250 mg-unit Tablet 1 tab PO BID Patient Comments: 10/27- otc unable to verify cyanocobalamin (vitamin B-12) 1,000 mcg/mL Kit 0 dose IM MONTHLY Patient Comments: 10/27- no fill history unable to verify Flintstones Complete Tablet,Chewable 1 tab PO BID Patient Comments: 10/27- otc unable to verify spironolactone 25 mg Tablet 25 mg PO QAM Entresto 97-103 mg tablet 1 tab PO BID aspirin 81 mg tablet,delayed release (DR/EC) 81 mg PO QPM Patient Comments: 10/27- otc unable to verify acetaminophen [Tylenol Extra Strength] 500 mg tablet 1,000 mg PO TID PRN (Reason: Pain) Patient Comments: 10/27- otc unable to verify Rx Instructions: OTC Referrals Referrals: Rivka Regalado [Primary Care Provider] -
[2024-10-27] MEDS: MoRPHine SULFATE 4 MG/ML 1 ML CARP\\VIAL IV STA (14:19)
[2024-10-27] MEDS: ONDANSETRON INJ 2 MG/ML 2 ML VIAL IV STA (14:20)
[2024-10-27 14:25] LABS: Hematocrit (blood only) 35.0 % (37.0-47.0); Hemoglobin 11.7 g/dl (12.0-16.0); Immature Granulocytes # (auto) 0.03 K/uL (0.01-0.20); Immature Granulocytes % (auto) 0.4 %; Mean Corpuscular Hemoglobin 32.1 pg (25.0-34.0); Mean Corpuscular Volume 95.9 fL (80.0-100.0); Platelet Count 220 K/uL (130-400); RDW Standard Deviation 45.8 fL (36.4-46.3); Red Blood Count 3.65 M/uL (4.20-5.40); White Blood Count 7.22 K/ul (4.8-10.8)
[2024-10-27] MEDS ORDERED: ACETAMINOPHEN 325 MG TAB PO PRN (14:30)
[2024-10-27 14:34] LABS: Alanine Aminotransferase 12.0 U/L (7-52); Albumin Globulin Ratio 1.4 (0.9-2); Alkaline Phosphatase 81.0 U/L (34-104); Anion Gap 6.0 (3-11); Bilirubin,Total 0.5 mg/dl (0.2-1.0); Blood Urea Nitrogen 21.0 mg/dl (6-23); Calcium 9.0 mg/dl (8.6-10.3); Carbon Dioxide 29.0 mmol/L (21-32); Chloride 107.0 mmol/L (98-107); Creatinine Clr Calc Pharmacy 86.9 ml/min; Globulin 2.7 gm/dl (2.5-4.0); Glucose 121.0 mg/dl (70-99(Fasting)); Potassium 4.3 mmol/L (3.5-5.1); Sodium 142.0 mmol/L (136-145); Total Protein 6.4 gm/dl (6.0-8.3)
[2024-10-27 14:43] LABS: INR 0.9 (0.9-1.1); Partial Thromboplastin Time 26 Seconds (21-31); Prothrombin Time 9.8 Seconds (9.0-12.0)
--- NOTE | 2024-10-27 14:59 | CT Scan Report ---
CT wrist RT wo con CLINICAL HISTORY: fracture, 3D recon for preop planning TECHNIQUE: Thin section axial CT images of the right wrist. Sagittal and coronal reformats were obtai idalia. Three-dimensional reformats were created on a workstation. DLP is 302. COMPARISON STUDY: X-ray earlier today FINDINGS: There is an acute extensively comminuted fracture with intra-articular extension at the dis sybil radius. There is one half shaft width posterior displacement of the largest dorsal fragment. Ther e is mild apex anterior angulation. Largest intra-articular gap measures 3 mm. There is minimal step- off of some of the fragments. There is an acute nondisplaced fracture at the base of the ulnar styloi d. No other fracture seen at the wrist. There are mild degenerative changes. No significant soft tiss ue hematoma seen. IMPRESSION: Acute distal radius and ulna fractures ACT 112: Negative or not required by law. Electronically signed by: Jesse Mcadams M.D. 10/27/2024 2:57 PM
[2024-10-27] MEDS: MoRPHine SULFATE 10 MG/ML CARP/VIAL IV PRN (16:16)
--- NOTE | 2024-10-27 19:21 | History & Physical Report ---
Date of Service October 27, 2024 Assessment & Plan (1) Fracture of right ulnar styloid: Plan: As above in the HPI. (2) Distal radial fracture: Plan: As above in the HPI. (3) Restless leg syndrome: Plan: As above in the HPI. Admission and Anticipated Discharge Date Admission Date: October 27, 2024 History of Present Illness Chief Complaint: "I was going down the third and last step of a step stool in my laundry room this morning (10/27/2024, 10:30am), and I missed the step and fell down. I did not pass out and my vision was not blurry or dim at all. My left forearm/wrist hurt a lot, and I couldn't get back up on my feet, so I crawled out the laundry room and into the hallway, and I pulled myself up against the stairs. My son then brought me in our family car to [facility] ER. The pain was an 11 (out of 10 point intensity scale) in my left forearm/wrist; then I got the morphine 10mg IV q4 prn pain x 1 dose (10/27/2024, 4:16pm), and that brought the pain down to a 6 (out of 10 point intensity scale). The ER doc said that the Orthopedic Surgeon Dr. Andre Causey will fix my left forearm/wrist tomorrow morning. The only medicine I need to take tonight will be the pramipexole 0.5mg PO qhs, that I take every night for my restless legs, OK?" Primary Care Provider: Rivka Regalado 69 years old female with PMH of FULL CODE @ home, morbid obesity with BMI 44.5 (height 170.2 cm; weight 128.9 kg), restless leg syndrome on pramipexole 0.5mg PO qhs, GERD on omeprazole 40mg PO qam, non-diabetic neuropathy of the feet on lyrica 75mg PO bid, hyperlipidemia on simvastatin 20mg PO qhs, chronic diastolic CHF with preserved LVEF 60-65% and grade II LV diastolic dysfunction (as noted on 04/22/2024 TTE, 10:40am, CARDS Dr. Chet De) on spironolactone 25mg PO qam and sacubitril 97mg - valsartan 103mg PO bid, HTN on spironolactone 25mg PO qam and sacubitril 97mg - valsartan 103mg PO bid, and former tobacco abuse with no subsequent diagnosis of COPD, not on home O2 or home steroids, just albuterol MDI 90ug/puff, 2 puffs PO qid prn SOB/wheeze , who reports: "I was going down the third and last step of a step stool in my laundry room this morning (10/27/2024, 10:30am), and I missed the step and fell down. I did not pass out and my vision was not blurry or dim at all. My left forearm/wrist hurt a lot, and I couldn't get back up on my feet, so I crawled out the laundry room and into the hallway, and I pulled myself up against the stairs. My son then brought me in our family car to [facility] ER. The pain was an 11 (out of 10 point intensity scale) in my left forearm/wrist; then I got the morphine 10mg IV q4 prn pain x 1 dose (10/27/2024, 4:16pm), and that brought the pain down to a 6 (out of 10 point intensity scale). The ER doc said that the Orthopedic Surgeon Dr. Andre Causey will fix my left forearm/wrist tomorrow morning. The only medicine I need to take tonight will be the pramipexole 0.5mg PO qhs, that I take every night for my restless legs, OK?" Negative for antecedent/coincident fevers, chills, diaphoresis, cough, wheeze, sore throat, hemoptysis, chest pains, palpitations, pleurisy, nausea, vomiting, diarrhea, abdominal pain, pelvic pain, hematemesis, hematochezia, melena, hematuria, dysuria, frequency, urgency, headaches, dizziness, lightheadedness, visual changes, hearing changes, weakness, syncope, travel history, sick contacts, or food/drug ingestions novel or new. All other review of systems are reported as negative by the patient on 10/27/2024. In [facility] ER bed #D05, patient was afebrile @ 36.4 degrees Celsius, HR 54, RR 16, O2 sat 94% on room air, and BP 157/77 (10/27/2024, 4:35pm). Exam was noted for edema and tenderness @ left distal radius/ulna, but no warmth, crepitus, fluctuance, discharge (sanguineous, serous, suppurative), malodor, ulceration, or lymphangitic streaking. Labs in [facility] ER bed #D05 included: WBC 7.22, N77 L16 M6, Hb 11.7, MCV 95.9, MCHC 33.4, platelet 220 (10/27/2024, 2:04pm). INR 0.9 (10/27/2024, 2:04pm). Na 142, K 4.3, BUN/vascular specialists 21/0.83, glucose 121, Ca 9.0, AST 19, ALT 12, ALK PHOS 81, TBili 0.5 (10/27/2024, 2:04pm). Additional testing in [facility] ER bed #D05 included: CT right wrist without contrast (10/27/2024, 2:10pm): Acute comminuted intra- articular distal radius fracture with mild posterior displacement and apex anterior angulation. There is a nondisplaced fracture at the ulnar styloid. No other fracture or dislocation seen at the right forearm, right wrist or right hand. Left knee x-ray (10/27/2024, 12:50pm): Left knee prosthesis. No fractures. Right wrist, hand, forearm x-rays (10/27/2024, 12:31pm): Acute comminuted intra-articular distal radius fracture with mild posterior displacement and apex anterior angulation. There is a nondisplaced fracture at the ulnar styloid. No other fracture or dislocation seen at the right forearm, right wrist or right hand. Patient was subsequently placed in OBSERVATION on the hospitalist service @ [facility] on 10/27/2024 with the following diagnoses: 1. Acute comminuted intra-articular distal radius fracture with mild posterior displacement and apex anterior angulation. There is a nondisplaced fracture at the ulnar styloid. No other fracture or dislocation seen at the right forearm, right wrist or right hand. 2. Chronic restless leg syndrome on pramipexole 0.5mg PO qhs. To address #1, patient will be made NPO at 10/28/2024, 12:00am, and will undergo ORIF of above fractures with Orthopedic Surgeon Dr. Andre Causey in the 10/28/2024 am. In the interim, patient will receive tylenol 650mg PO q4 prn pain 1-3, headache, temp > 100.4 degrees Fahrenheit, morphine 10mg IV q4 prn pain 4-10. In addition, patient was discontinued from her home-scheduled omeprazole 40mg PO qam, given the noted association of proton pump inhibitor(s) such as omeprazole and an increased risk of falls and fractures. To address #2, patient will continue with her home-scheduled pramipexole 0.5mg PO qhs. Allergies Allergy/AdvReac Type Severity Reaction Status Date / Time atenolol Allergy Intermediate RASH Verified 08/23/24 14:06 benazepril AdvReac Intermediate COUGH Verified 08/23/24 14:06 Home Medications Medication Instructions Recorded Confirmed Type albuterol sulfate 90 mcg/actuation 2 puff inhalation QID PRN SHORT OF 06/10/18 10/27/24 History aerosol inhaler (Ventolin HFA) BREATH calcium 315 mg (as 1 tab PO BID 06/10/18 10/27/24 History citrate)-vitamin D3 6.25 mcg (250 unit) tablet (Citracal + Vitamin D Maximum) cyanocobalamin (vitamin B-12) 0 dose IM MONTHLY 06/10/18 10/27/24 History 1,000 mcg/mL injection kit omeprazole 40 mg capsule,delayed 40 mg PO QAM 06/10/18 10/27/24 History release pediatric multivitamin no.76 1 tab PO BID 06/10/18 10/27/24 History (Flintstones Complete chewable tablet) pregabalin 75 mg capsule (Lyrica) 75 mg PO BID 06/10/18 10/27/24 History simvastatin 20 mg tablet 20 mg PO HS 06/10/18 10/27/24 History pramipexole 0.25 mg tablet 0.5 mg PO HS 05/25/23 10/27/24 History acetaminophen 500 mg tablet 1,000 mg PO TID PRN Pain 02/02/24 10/27/24 History (Tylenol Extra Strength) aspirin 81 mg tablet,delayed 81 mg PO QPM 02/02/24 10/27/24 History release sacubitril 97 mg-valsartan 103 mg 1 tab PO BID 02/02/24 10/27/24 History tablet (Entresto) spironolactone 25 mg tablet 25 mg PO QAM 04/27/24 10/27/24 History Past Med/Surg History Problem List Acute pain of left knee (Acute) Fall (Acute) Fracture of right ulnar styloid (Acute) Distal radial fracture (Acute) Bilateral sacroiliitis s/p b/l SI joint RF denervation 02/10/24 [facility] Overactive bladder Urgency incontinence Urinary symptom or sign Fracture of greater trochanter of left femur s/p fall 04/2022 Anemia (Acute) Obstructive sleep apnea Nocturnal hypoxemia CPAP DEVICE (DOES NOT USE EVERY NIGHT) GERD (gastroesophageal reflux disease) Restless leg syndrome Morbid obesity with BMI of 40.0-44.9, adult Asthma Osteoarthritis HLD (hyperlipidemia) HTN (hypertension) Medical History Pulmonary HTN est PASP 41mmHg per 04/22/24 ECHO Chronic right-sided heart failure follows with [facility] Cardio; on entresto and spironolactone Bilateral lower extremity edema chronic; per Cardio note 04/21/24: 'likely a combination of lymphedema and right-sided heart failure' Morbid obesity Urgency incontinence Osteoarthritis Bilateral sacroiliitis s/p b/l SI joint RF denervation 02/10/24 [facility] [place]x of fracture of hip (04/2022) left hip, due to fall, no surgery indicated Hx of falling (04/2022) fractured left hip- no surgery Hx of basal cell carcinoma Overactive bladder gets botox injections q 3-4 months Obstructive sleep apnea severe CHELSIE with significant hypoxemia; pt is 'semi-compliant' with CPAP Restless leg syndrome HLD (hyperlipidemia) HTN (hypertension) GERD (gastroesophageal reflux disease) AVNRT (AV mica re-entry tachycardia) follows with cardio Dr. de Q6 months; s/p ablation 02/2018 History of colon polyps Hx of diabetes mellitus no longer due to gastric bypass, now "prediabetic range" History of anemia Hx of supraventricular tachycardia hx pSVT/AV node reentrant tachycardia; s/p ablation 02/2018; follows with Cardio Neuropathy bilateral legs Chronic back pain Asthma stable Surgical History History of orthopedic surgery b/l SI joint RF denervation 02/10/24 [facility] [place] MAC without issue Hx of basal cell carcinoma excision History of radiofrequency ablation procedure for cardiac arrhythmia (2017) [facility] History of anesthesia reaction (2017) pt scheduled for R shoulder scope 01/19/18 [facility] [place]; per anesthesiology progress note, "Had right interscalene nerve block under sedation followed by IV induction of GA. After moving pt to beach chair position, pt developed bradycardia as low as 12 bpm. Pulse was not palpable and chest compressions were administered. Glycopyrrolate 0.4mg and atropine 1 mg was given IV. HR responded to 50's and SBP 117 Torr. Case cancelled. Pt emerged from anesthesia without difficulty. She is presently AAO, VSS in PACU. 12 lead EKG in PACU not significantly changed from previous. Discussed with developmental services worker Dr. De who advised transfer to ED for evaluation and observation. Discussed with pt and her sister who expressed understanding. Transfer to ED by EMS is pending" History of colonoscopy History of bunionectomy left foot x 2 History of shoulder surgery (06/2018) R shoulder arthroscopy 07/21/18: [place]: MAC#3, ETT#7.5n DL x 1 atraumatic, Gr View 1 History of esophagogastroduodenoscopy (EGD) History of tooth extraction total mouth History of hysterectomy History of bilateral tubal ligation History of total knee replacement bilat H/O gastric bypass (~03/2017) Family History Mother , at 49 years of age from cervical CA. Family hx of colon cancer Father , at 81 years of age from natural causes. No problems noted. Other Cancer Heart disease No family history of adverse response to anesthesia No family history of bleeding disorder Social History Smoking Status: Never smoker Second Hand Exposure: No; Do You Dip or Chew Tobacco: No; Tobacco Cessation Education Requested by Patient: No Hx Alcohol Use: No Hx Substance Use: No Preferred Language: Andorran Communication Ability: Effective Watch Crystal Molder Required: No Beliefs That Will Affect Care: None Current Living Situation: Other Other Information That Helps Us Care for You: No Feels Safe at Home: Yes Safety Concerns: Feels Safe At This Time Assistive Devices: Denture - Upper, Denture - Lower and Glasses Review of Systems Constitutional: As above in the HPI. Physical Exam Constitutional: General appearance: Run-down, worn-out, and listless. Cachexia and sarcopenia noted with bitemporal atrophy and decreased finger municipal clerk strength in left hand. Comfortable, coherent, cooperative. Wide awake and alert. Not confused, lethargic, or obtunded. Speaks in complete, fluent, and articulate sentences without pause, interruption, cough, or wheeze. HEENT: Normocephalic; atraumatic. EOMI. PERRL No rhinorrhea. No pharyngeal discharge. Neck: Supple, no stridor, bruit, goiter, JVD, or HJR. Lymph: No lymphadenopathy. Chest: Symmetric rise and fall with respirations. Non-tender to palpation. Lungs: Clear to auscultation and percussion. No audible wheeze, pectoriloquy, increase in tactile fremitus, or flatness/dullness to percussion at the bases. Heart: RRR, S1S2, no S3 or S4. Grade II/ early systolic murmur @ LLSB without radiation to the carotids, axilla, or back, and which remains invariant in regards to the respiratory cycle. Abd: Soft, non-tender, non-distended. No rebound, guarding, Shane's sign, or organomegaly. Bowel sounds auscultated in all 4 quadrants. Ext: No clubbing, cyanosis, or edema. 2+ pedal pulses bilaterally. Skin: No decubitus ulcer, exanthem, or enanthem. Skin dry with skin tenting, but no delay in capillary refill time > 2 seconds. Neuro: Alert and oriented in regards to person, place, time, or situation. Right arm paralysis and right leg paresis. LUE/LLE, 5/5 motor strength, proximally and distally. Urology: No lopes catheter. No urethral discharge. Psych: No suicidal ideation. No homicidal ideation. Results & Data Results & Data Vital Signs (Past 12 Hours) Vital Signs Temp Pulse Pulse Resp BP BP Pulse Ox 10/27/24 16:35 36.4 C L 54 L 16 157/77 H 94 10/27/24 16:34 36.4 C L 52 L 16 157/77 H 94 10/27/24 15:56 54 L 12 148/78 H 97 10/27/24 11:24 36.8 C 93 H 19 142/65 H 91 O2 Del Method 10/27/24 16:35 Room Air 10/27/24 16:34 Room Air 10/27/24 15:56 Room Air 10/27/24 11:24 Room Air Laboratory Results As above in the HPI. Diagnostic Findings As above in the HPI. Medications Administered As above in the HPI. Code Status & VTE Plan VTE Prophylaxis Plan VTE Prophylaxis will be ordered: Yes PG Care Time/CCT Total # of Minutes Spent Total Time Spent with Patient: Total time spent is greater than 50% in coordination of care (as documented) at patient's floor/unit and/or counseling patient: Coding Level of Care Code 64112 INT INP/OBS CARE 3/75MIN Diagnoses Fracture of right ulnar styloid S52.611A Distal radial fracture S52.509A Restless leg syndrome G25.81
[2024-10-27] MEDS: PRAMIPEXOLE DIHYDROCHLO 0.5 MG TAB PO SCH (21:05)
[2024-10-28] MEDS: ONDANSETRON INJ 2 MG/ML 2 ML VIAL IV PRN (02:11)
--- NOTE | 2024-10-28 09:58 | Orthopedic Consultation ---
Date of Consultation October 28, 2024 Assessment & Plan (1) Distal radial fracture: Patient evaluated by Dr. Causey. Based on the fracture, definitive management requires surgical intervention. Risks and benefits of the procedure were outlined with the patient and she expressed understanding and would like to proceed with surgery. The informed consent form was signed by the patient with Dr. Causey. Available on chart. Patient currently n.p.o. Hold NSAIDs and aspirin. Plan will be for surgery later this afternoon. Will continue to follow while admitted. (2) Fracture of right ulnar styloid: (3) Acute pain of left knee: Patient believes she hit this off the corner of a piece of furniture when falling. She has focal soft tissue swelling and ecchymosis over the anterolateral proximal knee/distal fibula. Knee x-rays are negative. Likely contusion. Ice and elevation. Pain management per primary service. PT/OT. Will likely require ambulatory assistive device, possible platform walker given right wrist fracture. Will continue to follow. Supervising Physician Co-Signing Physician Notes I saw and examined the patient, reviewed her imaging studies, formulated the above plan, and performed the substantive portion of the visit. Agree with the above note. Plan to take the patient to the operating room today for open reduction internal fixation of her right distal radius fracture. Readmit to hospitalist service after surgery. Could potentially discharge home this evening if medically stable. History of Present Illness Attending Physician: Anderson Jett DO History of Present Illness Andria Dove is a [id number] 69-year-old female who presented to the emergency department with a chief complaint of right wrist pain as well as some left knee pain secondary to a fall. Patient missed the last step of her stool and fell to the ground. She was subsequently evaluated in the emergency department, had x-rays of the right wrist, hand, forearm, and left knee. She was found to have a comminuted displaced and angulated distal radius fracture as well as an ulnar styloid fracture. Left knee x-rays were negative though she was having significant pain with attempts at ambulation. Does have a history of a left total knee arthroplasty in the past. Case was reviewed with Dr. Causey and patient was subsequently admitted under the hospitalist service in preparation for surgery. She was placed in a sugar-tong Ortho-Glass splint and given a sling. A wrist CT was also ordered for surgical planning purposes. Patient is being currently managed by the hospitalist service. She has not had anything to eat or drink this morning. She endorses a little bit of tingling in her right fingers but not her left toes. Patient was evaluated by Dr. Causey while admitted and the plan is for her to undergo open reduction internal fixation of the distal radius fracture today. Allergies Allergy/AdvReac Type Severity Reaction Status Date / Time atenolol Allergy Intermediate RASH Verified 08/23/24 14:06 benazepril AdvReac Intermediate COUGH Verified 08/23/24 14:06 Home Medications Medication Instructions Recorded Confirmed Type albuterol sulfate 90 mcg/actuation 2 puff inhalation QID PRN SHORT OF 06/10/18 10/27/24 History aerosol inhaler (Ventolin HFA) BREATH calcium 315 mg (as 1 tab PO BID 06/10/18 10/27/24 History citrate)-vitamin D3 6.25 mcg (250 unit) tablet (Citracal + Vitamin D Maximum) cyanocobalamin (vitamin B-12) 0 dose IM MONTHLY 06/10/18 10/27/24 History 1,000 mcg/mL injection kit omeprazole 40 mg capsule,delayed 40 mg PO QAM 06/10/18 10/27/24 History release pediatric multivitamin no.76 1 tab PO BID 06/10/18 10/27/24 History (Flintstones Complete chewable tablet) pregabalin 75 mg capsule (Lyrica) 75 mg PO BID 06/10/18 10/27/24 History simvastatin 20 mg tablet 20 mg PO HS 06/10/18 10/27/24 History pramipexole 0.25 mg tablet 0.5 mg PO HS 05/25/23 10/27/24 History acetaminophen 500 mg tablet 1,000 mg PO TID PRN Pain 02/02/24 10/27/24 History (Tylenol Extra Strength) aspirin 81 mg tablet,delayed 81 mg PO QPM 02/02/24 10/27/24 History release sacubitril 97 mg-valsartan 103 mg 1 tab PO BID 02/02/24 10/27/24 History tablet (Entresto) spironolactone 25 mg tablet 25 mg PO QAM 04/27/24 10/27/24 History Patient History Medical History Pulmonary HTN est PASP 41mmHg per 04/22/24 ECHO Chronic right-sided heart failure follows with [facility]; on entresto and spironolactone Bilateral lower extremity edema chronic; per Cardio note 04/21/24: 'likely a combination of lymphedema and right-sided heart failure' Morbid obesity Urgency incontinence Osteoarthritis Bilateral sacroiliitis s/p b/l SI joint RF denervation 02/10/[address] [facility] [place] Hx of fracture of hip (04/2022) left hip, due to fall, no surgery indicated Hx of falling (04/2022) fractured left hip- no surgery Hx of basal cell carcinoma Overactive bladder gets botox injections q 3-4 months Obstructive sleep apnea severe CHELSIE with significant hypoxemia; pt is 'semi-compliant' with CPAP Restless leg syndrome HLD (hyperlipidemia) HTN (hypertension) GERD (gastroesophageal reflux disease) AVNRT (AV mica re-entry tachycardia) follows with cardio Dr. de Q6 months; s/p ablation 02/2018 History of colon polyps Hx of diabetes mellitus no longer due to gastric bypass, now "prediabetic range" History of anemia Hx of supraventricular tachycardia hx pSVT/AV node reentrant tachycardia; s/p ablation 02/2018; follows with Cardio Neuropathy bilateral legs Chronic back pain Asthma stable Surgical History History of orthopedic surgery b/l SI joint RF denervation 02/10/[address] [facility] [place]; MAC without issue Hx of basal cell carcinoma excision History of [facility]frequency ablation procedure for cardiac arrhythmia ([facility] History of anesthesia reaction (2018) pt scheduled for R shoulder scope 01/19/[address] [facility] [place]; per anesthesiology progress note, "Had right interscalene nerve block under sedation followed by IV induction of GA. After moving pt to beach chair position, pt developed bradycardia as low as 12 bpm. Pulse was not palpable and chest compressions were administered. Glycopyrrolate 0.4mg and atropine 1 mg was given IV. HR responded to 50's and SBP 117 Torr. Case cancelled. Pt emerged from anesthesia without difficulty. She is presently AAO, VSS in PACU. 12 lead EKG in PACU not significantly changed from previous. Discussed with senior research associate Dr. De who advised transfer to ED for evaluation and observation. Discussed with pt and her sister who expressed understanding. Transfer to ED by EMS is pending" History of colonoscopy History of bunionectomy left foot x 2 History of shoulder surgery (06/2018) R shoulder arthroscopy 07/21/18: GA: MAC#3, ETT#7.5n DL x 1 atraumatic, Gr View 1 History of esophagogastroduodenoscopy (EGD) History of tooth extraction total mouth History of hysterectomy History of bilateral tubal ligation History of total knee replacement bilat H/O gastric bypass (~03/2017) Family History Mother , at 49 years of age from cervical CA. Family hx of colon cancer Father , at 81 years of age from natural causes. No problems noted. Other Cancer Heart disease No family history of adverse response to anesthesia No family history of bleeding disorder Social History Smoking Status: Never smoker Second Hand Exposure: No; Do You Dip or Chew Tobacco: No; Tobacco Cessation Education Requested by Patient: No Hx Alcohol Use: No Hx Substance Use: No Preferred Language: Czech Communication Ability: Effective Fisher Net Required: No Beliefs That Will Affect Care: None Current Living Situation: Other Other Information That Helps Us Care for You: No Feels Safe at Home: Yes Safety Concerns: Feels Safe At This Time Assistive Devices: Denture - Upper, Denture - Lower and Glasses Physical Exam Constitutional: Resting comfortably in bed. No distress. Pleasant. Cardiovascular: Capillary refill less than 2 seconds in right fingers. Left DP pulse 2+ Musculoskeletal: Right upper extremity: Ortho-Glass sugar-tong splint is in place. Sling is in place, fitting appropriately. Patient is able to wiggle fingers gingerly. Left lower extremity: Prior surgical incision well-healed with no dehiscence. No redness or warmth to the knee. There is focal soft tissue swelling and ecchymosis over the proximal anterior lateral knee/distal femur area. Knee range of motion 0 to 90 degrees, causes pain. No knee effusion. Skin: [place], warm, dry Neurologic: Patient reports tingling altered sensation in right fingers. No sensory deficits left toes. Results & Data Vital Signs (Past 12 Hours) Vital Signs Temp Pulse Resp BP Pulse Ox O2 Del Method 10/28/24 07:36 97.7 F 59 L 19 117/64 90 Room Air Laboratory Results 10/27/24 14:04 WBC 7.22 RBC 3.65 L Hgb 11.7 L Hct 35.0 L MCV 95.9 MCH 32.1 MCHC 33.4 RDW Std Deviation 45.8 RDW Coeff of Carlos 13.0 Plt Count 220 MPV 11.2 Immature Gran % (Auto) 0.4 Neut % (Auto) 76.5 Lymph % (Auto) 16.1 [place] % (Auto) 6.2 Eos % (Auto) 0.4 Baso % (Auto) 0.4 Neut # (Auto) 5.52 Lymph # (Auto) 1.16 L [place] # (Auto) 0.45 Eos # (Auto) 0.03 Baso # (Auto) 0.03 Immature Gran # (Auto) 0.03 PT 9.8 INR 0.9 APTT 26 PTT Ratio 1.0 Sodium 142 Potassium 4.3 Chloride 107 Carbon Dioxide 29 Anion Gap 6 BUN 21 Creatinine 0.83 Est Cr Clr Drug Dosing 86.9 eGFR 75.32 BUN/Creatinine Ratio 25.3 H Glucose 121 H Calcium 9.0 Total Bilirubin 0.5 AST 19 ALT 12 Alkaline Phosphatase 81 Total Protein 6.4 Albumin 3.7 Globulin 2.7 Albumin/Globulin Ratio 1.4 Diagnostic Findings Forearm X-Ray 10/27/24 12:31 XR wrist RT w scaphoid, XR hand RT min 3V routine, XR forearm RT 2V CLINICAL HISTORY: pain, fall COMPARISON: None FINDINGS: There is an acute comminuted intra-articular distal radius fracture with mild posterior displacement and apex anterior angulation. There is a nondisplaced fracture at the ulnar styloid. No other fracture or dislocation seen at the right forearm, right wrist or right hand. IMPRESSION: Acute distal radius and ulna fractures. ACT 112: Negative or not required by law. Electronically signed by: Jesse Mcadams M.D. 10/27/2024 1:03 PM Hand X-Ray 10/27/24 12:31 XR wrist RT w scaphoid, XR hand RT min 3V routine, XR forearm RT 2V CLINICAL HISTORY: pain, fall COMPARISON: None FINDINGS: There is an acute comminuted intra-articular distal radius fracture with mild posterior displacement and apex anterior angulation. There is a nondisplaced fracture at the ulnar styloid. No other fracture or dislocation seen at the right forearm, right wrist or right hand. IMPRESSION: Acute distal radius and ulna fractures. ACT 112: Negative or not required by law. Electronically signed by: Jesse Mcadams M.D. 10/27/2024 1:03 PM Wrist X-Ray 10/27/24 12:31 XR wrist RT w scaphoid, XR hand RT min 3V routine, XR forearm RT 2V CLINICAL HISTORY: pain, fall COMPARISON: None FINDINGS: There is an acute comminuted intra-articular distal radius fracture with mild posterior displacement and apex anterior angulation. There is a nondisplaced fracture at the ulnar styloid. No other fracture or dislocation seen at the right forearm, right wrist or right hand. IMPRESSION: Acute distal radius and ulna fractures. ACT 112: Negative or not required by law. Electronically signed by: Jesse Mcadams M.D. 10/27/2024 1:03 PM Knee X-Ray 10/27/24 12:50 XR knee LT 3V CLINICAL HISTORY: pain, fall COMPARISON: 05/07/2022 FINDINGS: Left knee prosthesis shows no hardware complication. Stable chronic small calcification adjacent to the medial femoral condyle. No fracture or dislocation seen. IMPRESSION: No fracture seen. ACT 112: Negative or not required by law. Electronically signed by: Jesse Mcadams M.D. 10/27/2024 1:[address] 10/27/24 14:10 CT wrist RT wo con CLINICAL HISTORY: fracture, 3D recon for preop planning TECHNIQUE: Thin section axial CT images of the right wrist. Sagittal and coronal reformats were obtained. Three-dimensional reformats were created on a workstation. DLP is 302. COMPARISON STUDY: X-ray earlier today FINDINGS: There is an acute extensively comminuted fracture with intra-articular extension at the distal radius. There is one half shaft width posterior displacement of the largest dorsal fragment. There is mild apex anterior angulation. Largest intra-articular gap measures 3 mm. There is minimal step-off of some of the fragments. There is an acute nondisplaced fracture at the base of the ulnar styloid. No other fracture seen at the wrist. There are mild degenerative changes. No significant soft tissue hematoma seen. IMPRESSION: Acute distal radius and ulna fractures ACT 112: Negative or not required by law. Electronically signed by: Jesse Mcadams M.D. 10/27/2024 2:57 PM (1) Distal radial fracture Encounter type: initial encounter Laterality: right
--- NOTE | 2024-10-28 10:37 | Anesthesiology Consultation ---
Date of Service October 28, 2024 Assessment & Plan Chart Review Chart Review: Acceptable Risk for Surgery and Patient NOT seen in Pre Admission Testing Consults Requested none ASA ASA4 Proposed Anesthesia Anesthesia Type: [facility] Laterality: Right Site: Supraclavicular History Surgery Operation Date: 10/28/24 07:50 Proposed Procedures p Right Distal Radius Open Reduction Internal Fixation - Andre Causey MD Height/Weight Height: 5 ft 7 in Weight: 128.9 kg Allergies Allergy/AdvReac Type Severity Reaction Status Date / Time atenolol Allergy Intermediate RASH Verified 08/23/24 14:06 benazepril AdvReac Intermediate COUGH Verified 08/23/24 14:06 Medications Home Medications Medication Instructions Recorded Confirmed Last Taken albuterol sulfate 90 mcg/actuation 2 puff inhalation QID PRN SHORT OF 06/10/18 10/27/24 2 Months Ago aerosol inhaler (Ventolin HFA) BREATH ~03/10/24 calcium 315 mg (as 1 tab PO BID 06/10/18 10/27/24 05/10/24 09:00 citrate)-vitamin D3 6.25 mcg (250 unit) tablet (Citracal + Vitamin D Maximum) cyanocobalamin (vitamin B-12) 0 dose IM MONTHLY 06/10/18 10/27/24 3 Weeks Ago 1,000 mcg/mL injection kit ~04/20/24 omeprazole 40 mg capsule,delayed 40 mg PO QAM 06/10/18 10/27/24 05/11/24 04:00 release pediatric multivitamin no.76 1 tab PO BID 06/10/18 10/27/24 05/10/24 22:30 (Flintstones Complete chewable tablet) pregabalin 75 mg capsule (Lyrica) 75 mg PO BID 06/10/18 10/27/24 05/10/24 22:30 simvastatin 20 mg tablet 20 mg PO HS 06/10/18 10/27/24 05/10/24 22:30 pramipexole 0.25 mg tablet 0.5 mg PO HS 05/25/23 10/27/24 05/10/24 22:30 acetaminophen 500 mg tablet 1,000 mg PO TID PRN Pain 02/02/24 10/27/24 05/10/24 09:00 (Tylenol Extra Strength) aspirin 81 mg tablet,delayed 81 mg PO QPM 02/02/24 10/27/24 2 Weeks Ago release ~04/27/24 sacubitril 97 mg-valsartan 103 mg 1 tab PO BID 02/02/24 10/27/24 05/10/24 09:00 tablet (Entresto) spironolactone 25 mg tablet 25 mg PO QAM 04/27/24 10/27/24 05/10/24 22:30 Active Medications Generic Name Dose Route Start Last Admin Trade Name Freq PRN Reason Stop Dose Admin Morphine Sulfate 10 mg 10/27/24 14:35 10/28/24 07:07 Morphine Sulfate 10 Mg/Ml Carp/Vial IV 11/10/24 14:34 10 mg Q4H PRN Administration pain 4 to 10 Ondansetron HCl 4 mg 10/27/24 20:53 10/28/24 02:11 Ondansetron Inj 2 Mg/Ml 2 Ml Vial IV 11/26/24 20:52 4 mg Q6H PRN Administration Nausea And Vomiting Pramipexole Dihydrochloride 0.5 mg 10/27/24 21:00 10/27/24 21:05 Pramipexole Dihydrochlo 0.5 Mg Tab PO 11/26/24 20:59 0.5 mg HS APARNA Administration Past Medical History Medical History Pulmonary HTN est PASP 41mmHg per 04/22/24 ECHO Chronic right-sided heart failure follows with [facility] Cardio; on entresto and spironolactone Bilateral lower extremity edema chronic; per Cardio note 04/21/24: 'likely a combination of lymphedema and right-sided heart failure' Morbid obesity Urgency incontinence Osteoarthritis Bilateral sacroiliitis s/p b/l SI joint RF denervation 02/10/24 [facility] Hx of fracture of hip (04/2022) left hip, due to fall, no surgery indicated Hx of falling (04/2022) fractured left hip- no surgery Hx of basal cell carcinoma Overactive bladder gets botox injections q 3-4 months Obstructive sleep apnea severe CHELSIE with significant hypoxemia; pt is 'semi-compliant' with CPAP Restless leg syndrome HLD (hyperlipidemia) HTN (hypertension) GERD (gastroesophageal reflux disease) AVNRT (AV mica re-entry tachycardia) follows with cardio Dr. de Q6 months; s/p ablation 02/2018 History of colon polyps Hx of diabetes mellitus no longer due to gastric bypass, now "prediabetic range" History of anemia Hx of supraventricular tachycardia hx pSVT/AV node reentrant tachycardia; s/p ablation 02/2018; follows with Cardio Neuropathy bilateral legs Chronic back pain Asthma stable ASCVD Ao Exercise / Class Metabolic Activity III < 4 Walking/Shop/Light housework Past Family History Family History Mother , at 49 years of age from cervical CA. Family hx of colon cancer Father , at 81 years of age from natural causes. No problems noted. Other Cancer Heart disease No family history of adverse response to anesthesia No family history of bleeding disorder Past Surgical History Surgical History History of orthopedic surgery b/l SI joint RF denervation 02/10/24 [facility]; MAC without issue Hx of basal cell carcinoma excision History of radiofrequency ablation procedure for cardiac arrhythmia (2017) [facility] History of anesthesia reaction (2018) pt scheduled for R shoulder scope 01/19/18 [facility]; per anesthesiology progress note, "Had right interscalene nerve block under sedation followed by IV induction of GA. After moving pt to beach chair position, pt developed bradycardia as low as 12 bpm. Pulse was not palpable and chest compressions were administered. Glycopyrrolate 0.4mg and atropine 1 mg was given IV. HR responded to 50's and SBP 117 Torr. Case cancelled. Pt emerged from anesthesia without difficulty. She is presently AAO, VSS in PACU. 12 lead EKG in PACU not significantly changed from previous. Discussed with child care development specialist Dr. De who advised transfer to ED for evaluation and observation. Discussed with pt and her sister who expressed understanding. Transfer to ED by EMS is pending" History of colonoscopy History of bunionectomy left foot x 2 History of shoulder surgery (06/2018) R shoulder arthroscopy 07/21/18: GA: MAC#3, ETT#7.5n DL x 1 atraumatic, Gr View 1 History of esophagogastroduodenoscopy (EGD) History of tooth extraction total mouth History of hysterectomy History of bilateral tubal ligation History of total knee replacement bilat H/O gastric bypass (~03/2017) Past Anesthesia History No Hx of Anesthesia Complications and No Family Hx of Anesthesia Complications History of PONV No Hx of PONV and No Hx of Motion Sickness Social History Smoking Status: Never smoker tobacco type: cigarettes Do You Dip or Chew Tobacco: No Hx Alcohol Use: No Hx Substance Use: No substance use type: does not use Physical Exam Vital Signs Last Vital Signs Temp 36.5 C 10/28/24 07:36 Pulse 59 L 10/28/24 07:36 Resp 19 10/28/24 07:36 BP 117/64 10/28/24 07:36 Pulse Ox 90 10/28/24 07:36 O2 Del Method Room Air 10/28/24 07:36 Testing Laboratory Results 10/27/24 14:04 10/27/24 14:04 PT 9.8 Seconds (9.0-12.0) 10/27/24 14:04 INR 0.9 (0.9-1.1) 10/27/24 14:04 APTT 26 Seconds (21-31) 10/27/24 14:04 Electrocardiogram Date: 04/21/24 Findings: + LVH and + SB @ (@ 56 w/ PSVC's) Echocardiogram Date: 04/22/24 EF: 60% LV Function: normal RWMA: + none Other Findings: + atrial enlargement (mild biatrial dilation L.R), + LVH (mild) and + diastolic dysfunction (Grade 2) Valvular Disease: + MR (mild) mild RV dilation PAP 41 mmhg
[2024-10-28] MEDS ORDERED: ROPIVACAINE 0.5% 5 MG/ML 30 ML VIAL ONE (10:58)
[2024-10-28] MEDS ORDERED: EPINEPHrine INJ 1 MG/ML AMP ONE (12:25)
[2024-10-28] MEDS ORDERED: DEXAMETHASONE SOD INJ 4 MG/ML VIAL ONE ×2 (12:26→12:47)
[2024-10-28] MEDS ORDERED: ONDANSETRON INJ 2 MG/ML 2 ML VIAL ONE (12:47)
[2024-10-28] MEDS ORDERED: MIDAZOLAM HCL 1 MG/ML 2ML VIAL ONE (12:47)
[2024-10-28] MEDS ORDERED: PROPOFOL IV EMULSION 10 MG/ML 20 ML VIAL IV ONE ×3 (12:47→15:56)
[2024-10-28] MEDS ORDERED: LIDOCAINE 2% 2 ML VIAL/AMP(20MG/ML) INFIL ONE (12:47)
[2024-10-28] MEDS ORDERED: GLYCOPYRROLATE 0.2 MG/ML VIAL ONE (14:05)
--- NOTE | 2024-10-28 15:01 | Hospitalist Progress Note ---
"Date of Service October 28, 2024 Assessment & Plan (1) Distal radial fracture: (2) Fracture of right ulnar styloid: (3) Acute pain of left knee: (4) Fall: Plan #Distal radial fracture | right ulnar styloid fracture -subsequent to fall at home - Ortho consulted ORIF scheduled with Dr. Causey today - Continue pain regimen as ordered #Diastolic HFpEF | hypertension continue spironolactone, Entresto #Chronic restless legscontinue pramipexole 0.5 mg HS #Nondiabetic neuropathycontinue Lyrica 75 mg twice daily #Hyperlipidemiacontinue simvastatin 20 mg at bedtime Dispo: Potential discharge home tomorrow 10/29 pending no acute events in postoperative period Updated son at bedside Admission and Anticipated Discharge Date Admission Date: October 27, 2024 Supervising Physician Co-Signing Physician Notes chart reviewed, case d/w S GLO [place]. as above Subjective Patient seen and evaluated at bedside with her son present. She reports that he r pain is well-controlled on her current regimen. She denies any chest pain, shortness of breath, abdominal pain, nausea, headache, lightheadedness. We discussed the plan for her to go to the OR for an ORIF of her right wrist today. No additional complaints or concerns at this time. Physical Exam Physical Exam: General: No acute distress, nondiaphoretic, well-developed, well-nourished. Class III obesity with BMI 44.5. MSK: Right upper extremity in Ortho-Glass sugar-tong splint with sling in place. Able to wiggle fingers on right hand. Left knee with some soft tissue swelling and ecchymosis over anterolateral knee. Pain on ROM of left knee. Cardiac: Regular rate and rhythm. Systolic murmur noted. Pulm: Clear to auscultation bilaterally without wheezes, rales or rhonchi. Normal respiratory effort. 92% on room air. Abdominal: Soft, nontender, nondistended. Bowel sounds present. Neuro: A&O x3. No focal neurological deficits. Results & Data Results & Data Vital Signs (Past 12 Hours) Vital Signs Temp Pulse Pulse Resp BP Pulse Ox O2 Del Method 10/28/24 13:27 97.5 F L 59 L 20 160/71 H 92 Room Air 10/28/24 07:36 97.7 F 59 L 19 117/64 90 Room Air PG Care Time/CCT Total # of Minutes Spent Total Time Spent with Patient: Total time spent is greater than 50% in coordination of care (as documented) at patient's floor/unit and/or counseling patient: Coding Level of Care Code 35083 SUB INP/OBS CARE 2/35MIN Diagnoses Distal radial fracture S52.509A Encounter type: initial encounter Laterality: right Fracture of right ulnar styloid S52.611A Acute pain of left knee M25.562 Fall W19.XXXA (1) Distal radial fracture Encounter type: initial encounter Laterality: right"
[2024-10-28] MEDS ORDERED: ATROPINE SULFATE 0.1 MG/ML 10ML SYR IV PRN (15:28)
[2024-10-28] MEDS: TRANEXAMIC ACID / 0.7% NACL 1,000 MG/100 ML BAG IV ONE (15:28)
[2024-10-28] MEDS ORDERED: ONDANSETRON INJ 2 MG/ML 2 ML VIAL IV PRN (15:28)
[2024-10-28] MEDS: ceFAZolin 3000MG 3,000 MG/72.5 ML BAG IV SCH (15:50)
[2024-10-28] MEDS ORDERED: KETAMINE HCL 10MG/ML SYR ONE (15:52)
--- NOTE | 2024-10-28 17:07 | Operative Report ---
Post Operative Report Pre & Post Diagnosis Operation Date: 10/28/24 07:50 Pre-Op Diagnosis: (1) comminuted displaced right distal radial fracture. (2) Fracture of right ulnar styloid. Post-Op Diagnosis: (1) comminuted displaced right distal radial fracture. (2) Fracture of right ulnar styloid. I identified the patient and participated in the time-out.: Yes Procedure Operation Date: 10/28/24 07:50 Actual Procedures Open Reduction Internal Fixation of comminuted displaced right distal radius fracture, greater than 3 fragments. 57 modifier due to the acute hospitalization and fixation. 22 modifier due to her body mass index necessitating a larger incision with additional time and difficulty for dissection, fixation, and closure. Surgeon Andre Causey MD Online Services Manager Peter Cummings PA-C. No resident or fellow was available to assist. Estimated Blood Loss 10 Findings Consistent with Post-Op Diagnosis Specimens None Anesthesia Type MAC Regional Complications none Disposition Disposition: Recovery Room Indications 69-year-old female, tripped and fell yesterday landing on her outstretched right hand. Immediate onset of pain. She presented to the emergency room where x- rays were obtained. This demonstrated a comminuted displaced right distal radius fracture. She was in significant mount of pain. She was placed into a sugar-tong splint and admitted to the hospitalist service. I saw her this morning. She stated she is right-handed. She has a medical history significant for morbid obesity with a body mass index 44.5, obstructive sleep apnea, hypertension, hyperlipidemia. I had a long discussion with her about her diagnosis and treatment options. Surgery is indicated to optimize her long-term function of her wrist. We talked about the risks and benefits of surgery, alternatives to surgery, and expected outcomes. After reviewing all of her options she elected to proceed with surgery. All questions were answered. Informed consent was signed. Description of Procedure Patient was identified in the preoperative holding area where she received a regional block by anesthesia. She was then brought back to the operating room where she was moved onto the operating room table and IV sedation was administered. She was then prepped and draped in the usual sterile fashion. Prior to incision a multidisciplinary timeout was called. All in the room in agreement. I began by exsanguinating the limb with an Esmarch bandage. Tourniquet was inflated to 300 mmHg. An 8 cm long incision was made overlying the FCR tendon. This was longer than the typical incision secondary to the patient's body habitus. I dissected down through subcutaneous tissues. She had significant subcutaneous tissue layer secondary to her obesity. FCR tendon was identified. There is a small rent in the fascia overlying the radial artery and associated nerve just radial to this. I incised the fascia overlying the FCR. FCR was retracted ulnarly. Fascia below the FCR was incised throughout the length of the incision. Parona space was entered. Hematoma was evacuated. The pronator quadratus was dissected subperiosteally from radial to ulnar. Fracture was inspected. It was significantly comminuted with 3 visible fragments volarly, 1 at the radial styloid, second 1 ulnarly adjacent to the lunate and DRUJ and a third 1 in the middle. I had use a [place] elevator to free up the fracture. Volar carpal translation maneuver was performed. It took me a little time and difficulty to get the fracture appropriately reduced but once I had a acceptable reduction I applied a standard with [employer] DVR plate and fixated this to the distal radius using a 3.5 mm cortical screw in the oblong hole. K wire was then placed through the distal aspect of the plate. Fluoroscopy was used to optimize the position of the plate and a reduction. I was able to get her to reduce to about neutral in terms of her dorsal tilt. This was felt to be acceptable. Once this was completed I then placed a second 3.5 mm cortical screw proximally. I then filled all the distal locking screw holes in unicortical fashion. A final 3.5 mm cortical screw was placed proximally. Final fluoroscopic images were then obtained. This showed the hardware in good position, appropriate screw length, and acceptable reduction of the fracture. Wound was then irrigated out with copious amounts of normal saline. Deep dermis was closed with 2-0 Vicryl sutures. Additional suturing was required secondary to the larger incision and thicker subcutaneous layer. Skin was then closed with 4-0 nylon suture in horizontal mattress fashion. Patient was placed into a volar plaster slab splint with the wrist held in neutral. Her sedation was then lifted and she was transferred to the cover room in stable condition. Postoperative course: Patient will be readmitted to the internal medicine service overnight for pain control and monitoring. She will elevate her wrist. Nonweightbearing through the wrist for the next 6 weeks. 2 weeks from now we will get x-rays out of the splint, and transition her to a removable wrist splint to begin range of motion exercises. Aspirin for DVT prophylaxis. I attest to the content of the Intraoperative Record and any orders documented therein. Any exceptions are noted below.
--- NOTE | 2024-10-28 17:51 | Anesthesiology Progress Note ---
Date of Service October 28, 2024 Anesthesia Post Procedure Vital Signs Vital Signs: Temp Pulse Pulse Resp BP Pulse Ox O2 Del Method 10/28/24 17:45 71 16 164/84 H 97 Oxymask 10/28/24 17:35 75 16 143/81 H 98 Oxymask 10/28/24 17:29 36 C L 80 13 146/81 H 99 Oxymask 10/28/24 13:27 36.4 C L 59 L 20 160/71 H 92 Room Air 10/28/24 07:36 36.5 C 59 L 19 117/64 90 Room Air 10/27/24 19:54 36.7 C 51 L 16 124/75 91 Room Air O2 Flow Rate 10/28/24 17:45 3 10/28/24 17:35 4 10/28/24 17:29 6 10/28/24 13:27 10/28/24 07:36 10/27/24 19:54 Pain Intensity Right Wrist: Pain Intensity: 6 Transfer of Care Handoff Completed per policy Notes Mental Status: alert / awake / arousable and participated in evaluation Patient Amnestic to Procedure: Yes Nausea / Vomiting: adequately controlled Pain: adequately controlled Airway Patency, RR, SpO2: stable & adequate BP & HR: stable & adequate Hydration State: stable & adequate Anesthetic Complications: no major complications apparent and Pt Satisfied with anesthetic care
[2024-10-28] MEDS ORDERED: ALUMINUM/MAGNESIUM SUSP 30 ML UDC PO PRN (17:59)
[2024-10-28] MEDS ORDERED: ALBUTEROL HFA 8 GM INHALER INH PRN (17:59)
[2024-10-28] MEDS ORDERED: NALOXONE HCL 0.4 MG/1 ML VIAL/CARP IV PRN (17:59)
[2024-10-28] MEDS ORDERED: MAGNESIUM HYDROXIDE SUSP 30 ML UDC PO PRN (17:59)
[2024-10-28] MEDS ORDERED: diphenhydrAMINE 50 MG/ML VIAL IV PRN (17:59)
[2024-10-28] MEDS ORDERED: METOCLOPRAMIDE HCL INJ 5 MG/ML 2 ML VIAL IV PRN (17:59)
[2024-10-28] MEDS: SODIUM CHLORIDE 0.9% 1,000 ML IV SCH (18:19)
--- NOTE | 2024-10-28 19:26 | Operative Report ---
Post Operative Report Pre & Post Diagnosis Operation Date: 10/28/24 07:50 Pre-Op Diagnosis: (1) Distal radial fracture. (2) Fracture of right ulnar styloid. Post-Op Diagnosis: (1) Distal radial fracture. (2) Fracture of right ulnar styloid. I identified the patient and participated in the time-out.: Yes Procedure Operation Date: 10/28/24 07:50 Actual Procedures p Right Distal Radius Open Reduction Internal Fixation(Right) - Andre Causey MD Surgeon Andre Causey MD Personalized Living Manager Peter Cummings PA-C. No resident or fellow was available to assist. Estimated Blood Loss 10 Findings Consistent with Post-Op Diagnosis Specimens None Description of Procedure I was present for the second half of the case. I assisted with retraction, suctioning, wound closure, dressing and splint application. Please refer to Dr. Causey's procedure note for full details. I attest to the content of the Intraoperative Record and any orders documented therein. Any exceptions are noted below.
[2024-10-28] MEDS: ACETAMINOPHEN 500 MG TAB PO SCH (20:16)
[2024-10-28] MEDS: PREGABALIN 75 MG CAP PO SCH (20:16)
[2024-10-28] MEDS: VALSARTAN/SACUBITRIL 103/97MG TAB PO SCH (20:16)
[2024-10-28] MEDS: SIMVASTATIN 20 MG TAB PO SCH (20:16)
[2024-10-28] MEDS: SENNA 8.6 MG TAB PO SCH (20:16)
[2024-10-28] MEDS: DOCUSATE SODIUM 100 MG CAP PO SCH (20:16)
--- NOTE | 2024-10-28 23:38 | XRay Report ---
Exam(s): XR RIGHT WRIST, 3+ views EXAM: XR Right Wrist Complete, 3 or More Views CLINICAL HISTORY: Reason for exam: s/p ORIF distal radius fracture. TECHNIQUE: Frontal, lateral and oblique views of the right wrist. COMPARISON: 10/27/2024 FINDINGS/IMPRESSION: Status post volar [id number] fixation of intra-articular distal radius fracture, now held in anatomic alignment. No hardware complication. Known nondisplaced ulnar styloid fracture is presently obscured by overlying cast. No dislocation. Soft tissue swelling. Electronically signed by: Sierra Garcia M.D. 10/28/24 23:37 PM
[2024-10-29] MEDS ORDERED: MoRPHine SULFATE 2 MG/ML CARP IV PRN (01:34)
[2024-10-29] MEDS: MoRPHine SULFATE 4 MG/ML 1 ML CARP\\VIAL IV PRN ×2 (01:52→17:01)
--- NOTE | 2024-10-29 07:16 | Fluoroscopy Report ---
INTRAOPERATIVE RADIOGRAPHS CLINICAL HISTORY: Open reduction and internal fixation of the right radius. Fluoro time: 17 seconds Ka,r: 0.42 mGy FINDINGS: 2 spot fluoroscopic views of the right wrist are correlated with x-rays dated 10/27/2024. Th ere has been buttress plate fixation along the volar cortex of a comminuted distal radial fracture wi th baptism of near-anatomic alignment. The orthopedic hardware appears intact. There is an avulsi on fracture the ulnar styloid. Overlying soft tissue edema is observed. IMPRESSION: Intraoperative images from open reduction and internal fixation of a distal radial fractu re as above. Electronically signed by: Wang Sykes M.D. 10/29/2024 7:14 AM
[2024-10-29 07:35] LABS: Hematocrit (blood only) 29.2 % (37.0-47.0); Hemoglobin 9.8 g/dl (12.0-16.0); Mean Corpuscular Hemoglobin 32.6 pg (25.0-34.0); Mean Corpuscular Volume 97.0 fL (80.0-100.0); Platelet Count 167 K/uL (130-400); RDW Standard Deviation 44.8 fL (36.4-46.3); Red Blood Count 3.01 M/uL (4.20-5.40); White Blood Count 5.95 K/ul (4.8-10.8)
[2024-10-29 08:01] LABS: Anion Gap 3.0 (3-11); Blood Urea Nitrogen 17.0 mg/dl (6-23); Calcium 7.7 mg/dl (8.6-10.3); Carbon Dioxide 30.0 mmol/L (21-32); Chloride 107.0 mmol/L (98-107); Creatinine Clr Calc Pharmacy 82.9 ml/min; Glucose 114.0 mg/dl (70-99(Fasting)); Potassium 4.5 mmol/L (3.5-5.1); Sodium 140.0 mmol/L (136-145)
[2024-10-29] MEDS: SPIRONOLACTONE 25 MG TAB PO SCH (08:35)
[2024-10-29] MEDS: MULTIVITAMIN TAB PO SCH (08:35)
--- NOTE | 2024-10-29 09:10 | Orthopedic Progress Note ---
Date of Service October 29, 2024 Assessment & Plan (1) Distal radial fracture: Plan: Elevate her right wrist. Should continue to use the sling while the nerve block is in place. Can discontinue the sling once her nerve block is worn off. DVT prophylaxis per the primary service. Keep the splint clean and dry. Finger range of motion is encouraged both passively and actively once her block wears off. Follow-up in the orthopedic clinic 2 weeks after discharge to transition to a removable splint. Regarding her back pain. Recommend at least x-rays and possibly a CT scan to evaluate for an acute fracture. Expect this to show some arthritis. If fracture is seen would recommend consulting the spine team for evaluation and management. (2) Fracture of right ulnar styloid: (3) Acute pain of left knee: Plan: Patient believes she hit this off the corner of a piece of furniture when falling. She has focal soft tissue swelling and ecchymosis over the anterolateral proximal knee/distal fibula. Knee x-rays are negative. Likely contusion. Ice and elevation. Pain management per primary service. PT/OT. Will likely require ambulatory assistive device, possible platform walker given right wrist fracture. Will continue to follow. Admission and Anticipated Discharge Date Admission Date: October 27, 2024 Subjective Patient seen and examined on a.m. rounds. Postop day 1 status post ORIF right distal radius fracture. She reports that her right arm is still numb from the nerve block. She has been elevating her wrist. Her main complaint this morning is about her back. She says she is having a hard time getting comfortable in bed. She does not feel like she can get out of bed because of her back. Denies any numbness or tingling down her legs. She does have a long history of back pain. She follows with Dr. Box. She recently underwent some kind of a procedure to her back by Dr. Box but she cannot recall exactly what was done. Physical Exam Physical Exam: On exam she is supine in bed in no acute distress. Right upper extremity exam reveals her splint to be clean dry and intact. She has no motor or sensory function in her right hand secondary to the block. Fingers are warm well-perfused however. She is wearing a sling with her wrist appropriately elevated. Results & Data Vital Signs (Past 12 Hours) Vital Signs Temp Pulse Resp BP Pulse Ox O2 Del Method O2 Flow Rate 08/02/25 07:25 36.7 C 54 L 18 154/70 H 97 Nasal Cannula 10/29/24 05:15 36.5 C 56 L 18 138/69 96 Nasal Cannula 2 10/29/24 01:15 36.4 C L 54 L 18 127/65 94 Nasal Cannula 2 10/28/24 22:09 Nasal Cannula 2 10/28/24 21:15 36.7 C 60 18 118/64 93 Nasal Cannula 2 Diagnostic Findings Postop x-rays demonstrate hardware in good position with acceptable alignment of the fracture. (1) Distal radial fracture Encounter type: initial encounter Laterality: right
--- NOTE | 2024-10-29 11:08 | Hospitalist Progress Note ---
"Date of Service October 29, 2024 Assessment & Plan (1) Distal radial fracture: (2) Fracture of right ulnar styloid: (3) Acute pain of left knee: (4) Fall: Plan 69-year-old female with past medical history of pulmonary hypertension, chronic right-sided heart failure, restless leg syndrome, hyperlipidemia, GERD, diabetes. She presented after a fall from a step stool when reaching for a shelf. Imaging on admission found a communicated displaced and angulated distal radius fracture and an ulnar styloid fracture. Left knee x-rays were negative but she does have some left knee pain from a contusion. She also has chronic thoracolumbar back pain that has been worse since her fall. This back pain improved once she got out of bed, ambulated, and spent time in the bedside chair. #Fall | Distal radial fracture | Right ulnar styloid fracture - fall was b iomechanical in nature - Ortho consulted s/p ORIF 10/[address] Causey. Surgery took longer than anticipated due to body habitus but otherwise went well without complications. Some mild acute blood loss anemia postoperatively but Hgb stable - Back pain is chronic but acutely worsened since her fall. Upon getting OOB and ambulating, her pain significantly improved. She has muscular paraspinal tenderness, no tenderness on direct palpation of the spine. Will defer on imaging, almost certainly musculoskeletal - Pain regimen adjusted: scheduled Tylenol, oxycodone 5 mg as needed moderate p ain, oxycodone 10 mg as needed severe pain, morphine 4 mg IV as needed for breakthrough pain - PT/OT following #Diastolic HFpEF | hypertension continue spironolactone, Entresto #Chronic restless legscontinue pramipexole 0.5 mg HS #Nondiabetic neuropathycontinue Lyrica 75 mg twice daily #Hyperlipidemiacontinue simvastatin 20 mg at bedtime Dispo: Potential discharge home tomorrow 10/30 pending improved pain control Readjusted pain regimen Discussed with PT/OT Admission and Anticipated Discharge Date Admission Date: October 27, 2024 Supervising Physician Co-Signing Physician Notes chart reviewed, case d/w S GLO [place]. as above Subjective Patient seen and evaluated at bedside with RN, PT, and OT. She reports that her back pain is what is bothering her the most at this time. She reports she has chronic back pain that intermittently bothers her. Her back pain has been worse since her fall. She has some right sided paraspinal muscle tenderness around thoracolumbar region. She has not been out of bed in ~48 hours. Upon getting out of bed, she did well with ambulating. She states her back is not painful when standing and ambulating. She walked to and from the bathroom and then sat in the bedside chair and reports her back pain is much better/nearly gone now. We discussed that this is almost certainly muscular in origin and does not require imaging at this time. We also discussed readjusting her pain regimen to ensure her pain is controlled on oral pain meds so she can hopefully be discharged tomorrow, 10/30. No additional complaints or concerns at this time. Physical Exam Physical Exam: General: No acute distress, nondiaphoretic, well-developed, well-nourished. Class III obesity with BMI 44.5. MSK: Right upper extremity in cast and sling. Able to wiggle fingers on right hand. Some decreased sensation in her right fingers from nerve block still in effect. Left knee with some soft tissue swelling and ecchymosis over anterolateral knee. Some pain on ROM of left knee but able to bear weight and ambulate. Skin: Warm, dry. Chronic venous stasis changes in her LE bilaterally. Cardiac: Regular rate and rhythm. Systolic murmur noted. Pulm: Clear to auscultation bilaterally without wheezes, rales or rhonchi. Normal respiratory effort. 95% on room air. Abdominal: Soft, nontender, nondistended. Bowel sounds present. Neuro: A&O x3. No focal neurological deficits. Back: Right-sided thoracolumbar paraspinal tenderness to palpation. No pain on direct palpation of the spine. Normal motor and sensory function in lower extremities bilaterally. Results & Data Results & Data Vital Signs (Past 12 Hours) Vital Signs Temp Pulse Resp BP Pulse Ox O2 Del Method O2 Flow Rate 10/29/24 07:25 98.1 F 54 L 18 154/70 H 97 Nasal Cannula 10/29/24 05:15 97.7 F 56 L 18 138/69 96 Nasal Cannula 2 10/29/24 01:15 97.5 F L 54 L 18 127/65 94 Nasal Cannula 2 Laboratory Results Reviewed CBC Reviewed BMP PG Care Time/CCT Total # of Minutes Spent Total Time Spent with Patient: Total time spent is greater than 50% in coordination of care (as documented) at patient's floor/unit and/or counseling patient: Coding Level of Care Code 89667 SUB INP/OBS CARE 350MIN Diagnoses Distal radial fracture S52.509A Encounter type: initial encounter Laterality: right Fracture of right ulnar styloid S52.611A Acute pain of left knee M25.562 Fall W19.XXXA (1) Distal radial fracture Encounter type: initial encounter Laterality: right"
[2024-10-29] MEDS ORDERED: DICLOFENAC SOD 1% GEL 100 GM TUBE EXT PRN (11:48)
[2024-10-29] MEDS: LIDOCAINE 5% 1 PATCH TD STA (12:33)
[2024-10-29] MEDS: HYDROmorphone INJ 0.5 MG/0.5 ML SYR IV PRN (19:26)
[2024-10-29] MEDS: ASPIRIN 81 MG ECTAB PO SCH (20:20)
[2024-10-29] MEDS: REMOVE LIDODERM PATCH SCH (20:23)
[2024-10-30 07:42] VITALS: BP 136/74; PULSE 56; RESP 16; TEMP 97.7; O2SAT 94
[2024-10-30 08:03] LABS: Hematocrit (blood only) 33.1 % (37.0-47.0); Hemoglobin 10.7 g/dl (12.0-16.0); Mean Corpuscular Hemoglobin 31.9 pg (25.0-34.0); Mean Corpuscular Volume 98.8 fL (80.0-100.0); Platelet Count 173 K/uL (130-400); RDW Standard Deviation 46.9 fL (36.4-46.3); Red Blood Count 3.35 M/uL (4.20-5.40); White Blood Count 5.70 K/ul (4.8-10.8)
[2024-10-30] MEDS ORDERED: LIDOCAINE 5% 1 PATCH TD SCH (09:00)
[2024-10-30 09:03] LABS: Anion Gap 5.0 (3-11); Blood Urea Nitrogen 18.0 mg/dl (6-23); Calcium 8.1 mg/dl (8.6-10.3); Carbon Dioxide 29.0 mmol/L (21-32); Chloride 106.0 mmol/L (98-107); Glucose 107.0 mg/dl (70-99(Fasting)); Potassium 4.1 mmol/L (3.5-5.1); Sodium 140.0 mmol/L (136-145)
[2024-10-30 09:10] LABS: Creatinine Clr Calc Pharmacy 85.8 ml/min
--- NOTE | 2024-10-30 11:10 | Discharge Summary ---
Discharge Summary Date of Service October 30, 2024 Principal Dx & Hospital Course #1 = Principal Diagnosis (1) Distal radial fracture: (2) Fracture of right ulnar styloid: (3) Acute pain of left knee: (4) Fall: Plan 69-year-old female with past medical history of pulmonary hypertension, chronic right-sided heart failure, restless leg syndrome, hyperlipidemia, GERD, diabetes. She presented after a fall from a step stool when reaching for a shelf. Imaging on admission found a communicated displaced and angulated distal radius fracture and an ulnar styloid fracture. Left knee x-rays were negative but she does have some left knee pain from a contusion. She also has chronic thoracolumbar back pain that has been worse since her fall. This back pain improved once she got out of bed, ambulated, and spent time in the bedside chair. #Fall | Distal radial fracture | Right ulnar styloid fracture - fall was biomechanical in nature - Ortho consulted s/p ORIF 10/[address] Causey. Surgery took longer than anticipated due to body habitus but otherwise went well without complications. Some mild acute blood loss anemia postoperatively but Hgb stable and improving - Back pain is chronic but acutely worsened since her fall. Upon getting OOB and ambulating, her pain significantly improved. She has muscular paraspinal tenderness, no tenderness on direct palpation of the spine. Deferred on imaging, almost certainly musculoskeletal - Prescribed Percocet 10-325 mg Q6h PRN on discharge over oxycodone per patient's request. Educated on combination of oxycodone + acetaminophen and caution with taking additional Tylenol - PT/OT recommended home health; referral made for HH by case management - Follow-up with ortho scheduled for 11/09 #Diastolic HFpEF | hypertension continue spironolactone, Entresto #Chronic restless legscontinue pramipexole 0.5 mg HS #Nondiabetic neuropathycontinue Lyrica 75 mg twice daily #Hyperlipidemiacontinue simvastatin 20 mg at bedtime Dispo: Discharged home with home health services 10/30 Notes For Next Care Provider Medication Changes From Visit Percocet 10-325 mg q6h prn pain x 14 tablets Admission HPI Per Admitting Provider 69 years old female with PMH of FULL CODE @ home, morbid obesity with BMI 44.5 (height 170.2 cm; weight 128.9 kg), restless leg syndrome on pramipexole 0.5mg PO qhs, GERD on omeprazole 40mg PO qam, non-diabetic neuropathy of the feet on lyrica 75mg PO bid, hyperlipidemia on simvastatin 20mg PO qhs, chronic diastolic CHF with preserved LVEF 60-65% and grade II LV diastolic dysfunction (as noted on 04/22/2024 TTE, 10:40am, CARDS Dr. Chet Ortiz) on spironolactone 25mg PO qam and sacubitril 97mg - valsartan 103mg PO bid, HTN on spironolactone 25mg PO qam and sacubitril 97mg - valsartan 103mg PO bid, and former tobacco abuse with no subsequent diagnosis of COPD, not on home O2 or home steroids, just albuterol MDI 90ug/puff, 2 puffs PO qid prn SOB/wheeze, who reports: "I was going down the third and last step of a step stool in my laundry room this morning (10/27/2024, 10:30am), and I missed the step and fell down. I did not pass out and my vision was not blurry or dim at all. My left forearm/wrist hurt a lot, and I couldn't get back up on my feet, so I crawled out the laundry room and into the hallway, and I pulled myself up against the stairs. My son then brought me in our family car to [facility] ER. The pain was an 11 (out of 10 point intensity scale) in my left forearm/wrist; then I got the morphine 10mg IV q4 prn pain x 1 dose (10/27/2024, 4:16pm), and that brought the pain down to a 6 (out of 10 point intensity scale). The ER doc said that the Orthopedic Surgeon Dr. Andre Causey will fix my left forearm/wrist tomorrow morning. The only medicine I need to take tonight will be the pramipexole 0.5mg PO qhs, that I take every night for my restless legs, OK?" Negative for antecedent/coincident fevers, chills, diaphoresis, cough, wheeze, sore throat, hemoptysis, chest pains, palpitations, pleurisy, nausea, vomiting, diarrhea, abdominal pain, pelvic pain, hematemesis, hematochezia, melena, hematuria, dysuria, frequency, urgency, headaches, dizziness, lightheadedness, visual changes, hearing changes, weakness, syncope, travel history, sick contacts, or food/drug ingestions novel or new. All other review of systems are reported as negative by the patient on 10/27/2024. In [facility] ER bed #D05, patient was afebrile @ 36.4 degrees Celsius, HR 54, RR 16, O2 sat 94% on room air, and BP 157/77 (10/27/2024, 4:35pm). Exam was noted for edema and tenderness @ left distal radius/ulna, but no warmth, crepitus, fluctuance, discharge (sanguineous, serous, suppurative), malodor, ulceration, or lymphangitic streaking. Labs in [facility] ER bed #D05 included: WBC 7.22, N77 L16 M6, Hb 11.7, MCV 95.9, MCHC 33.4, platelet 220 (10/27/2024, 2:04pm). INR 0.9 (10/27/2024, 2:04pm). Na 142, K 4.3, BUN/core piler 21/0.83, glucose 121, Ca 9.0, AST 19, ALT 12, ALK PHOS 81, TBili 0.5 (10/27/2024, 2:04pm). Additional testing in [facility] bed #D05 included: CT right wrist without contrast (10/27/2024, 2:10pm): Acute comminuted intra- articular distal radius fracture with mild posterior displacement and apex anterior angulation. There is a nondisplaced fracture at the ulnar styloid. No other fracture or dislocation seen at the right forearm, right wrist or right hand. Left knee x-ray (10/27/2024, 12:50pm): Left knee prosthesis. No fractures. Right wrist, hand, forearm x-rays (10/27/2024, 12:31pm): Acute comminuted intra-articular distal radius fracture with mild posterior displacement and apex anterior angulation. There is a nondisplaced fracture at the ulnar styloid. No other fracture or dislocation seen at the right forearm, right wrist or right hand. Patient was subsequently placed in OBSERVATION on the hospitalist service @ [facility] on 10/27/2024 with the following diagnoses: 1. Acute comminuted intra-articular distal radius fracture with mild posterior displacement and apex anterior angulation. There is a nondisplaced fracture at the ulnar styloid. No other fracture or dislocation seen at the right forearm, right wrist or right hand. 2. Chronic restless leg syndrome on pramipexole 0.5mg PO qhs. To address #1, patient will be made NPO at 10/28/2024, 12:00am, and will undergo ORIF of above fractures with Orthopedic Surgeon Dr. Andre Causey in the 10/28/2024 am. In the interim, patient will receive tylenol 650mg PO q4 prn pain 1-3, headache, temp > 100.4 degrees Fahrenheit, morphine 10mg IV q4 prn pain 4-10. In addition, patient was discontinued from her home-scheduled omeprazole 40mg PO qam, given the noted association of proton pump inhibitor(s) such as omeprazole and an increased risk of falls and fractures. To address #2, patient will continue with her home-scheduled pramipexole 0.5mg PO qhs. Discharge Exam General: No acute distress, nondiaphoretic, well-developed, well-nourished. Class III obesity with BMI 44.5. MSK: Right upper extremity in cast and sling. Able to wiggle fingers on right hand. Nerve block starting to wear off. Left knee with some soft tissue swelling and ecchymosis over anterolateral knee. Some pain on ROM of left knee but able to bear weight and ambulate. Skin: Warm, dry. Chronic venous stasis changes in her LE bilaterally. Cardiac: Regular rate and rhythm. Systolic murmur noted. Pulm: Clear to auscultation bilaterally without wheezes, rales or rhonchi. Normal respiratory effort. 94% on room air. Abdominal: Soft, nontender, nondistended. Bowel sounds present. Neuro: A&O x3. No focal neurological deficits. Back: Right-sided thoracolumbar paraspinal tenderness to palpation improved. No pain on direct palpation of the spine. Normal motor and sensory function in lower extremities bilaterally. Discharge Plan Discharge Items Patient Disposition: Home - Home Health Services Reason For Visit: ACUTE RIGHT DISTAL RADIUS/ULNA FRACTURES Discharge Diagnosis: Distal radial fracture, right ulnar styloid fracture s/p ORIF Condition on Discharge: Good Activity: Per Instructions section Non-emergency contact: Primary Care Provider Call non-emergency contact if: you have any medication questions, your symptoms worsen and your pain is not controlled Follow-up/Referrals: Rivka Regalado [Primary Care Provider] - (Follow-up in 1-2 weeks) Laura Waters PA-C [Physician [employer] Coverer] - 11/09/24 12:30 pm Diet: Heart Healthy Addtl Attending Provider Instructions: Banco, You were admitted to the hospital after a fall resulted in a distal radial fracture and an ulnar styloid fracture of your right wrist. You had this surgically fixed with Dr. Warren on 10/28/2024. This surgery went well without any complications. Your left knee x-rays were negative and there is no effusion on exam, likely your left knee pain is from a contusion and will improve over the next several days. Your back pain is almost certainly muscular and will continue to improve with increased walking/movement. You were evaluated by PT and OT who recommended home health services, which have been arranged by your rehabilitation caseworker. Upon discharge from the hospital: * Take Percocet 61972 mg every 6 hours NEEDED for pain. Percocet is a combination of oxycodone and acetaminophen (Tylenol). Be cautious about taking additional Tylenol on top of Percocet; the maximum daily Tylenol dose is 3,[address] or operate heavy machinery while taking Percocet as it is a narcotic pain medication. * You can use Ibuprofen as needed for mild pain. You can take this while taking Percocet. * Continue to use the sling while your nerve block is in place. You can stop using the sling once the nerve block has worn off. * Continue both active and passive range of motion of your right fingers once the nerve block wears off. * Continue to use the hemiwalker as needed. * Follow the activity instructions that Dr. Causey reviewed with you. * Follow-up with orthopedics as scheduled on 11/09 at 12:30 PM. * Follow-up with your PCP in 1-2 weeks. It was a pleasure taking care of you while you were in the hospital! Pending Studies at Discharge: No Stand-Alone Forms: [facility] - Opioid Pain Management, Smoking Cessation Medications and DC Order Prescriptions: New oxycodone-acetaminophen [Percocet] 10-325 mg tablet 1 tab PO Q6H PRN (Reason: pain) Qty: 14 0RF Continued pramipexole 0.25 mg tablet 0.5 mg PO HS omeprazole 40 mg Capsule,Delayed Release(Dr/Ec) 40 mg PO QAM simvastatin 20 mg Tablet 20 mg PO HS albuterol sulfate [Ventolin HFA] 90 mcg/actuation Hfa Aerosol Inhaler 2 puff INHALATION QID PRN (Reason: SHORT OF BREATH) Patient Comments: 10/27- no fill history unable to verify pregabalin [Lyrica] 75 mg Capsule 75 mg PO BID calcium citrate-vitamin D3 [Citracal + D Maximum] 315-250 mg-unit Tablet 1 tab PO BID Patient Comments: 10/27- otc unable to verify cyanocobalamin (vitamin B-12) 1,000 mcg/mL Kit 0 dose IM MONTHLY Patient Comments: 10/27- no fill history unable to verify Flintstones Complete Tablet,Chewable 1 tab PO BID Patient Comments: 10/27- otc unable to verify spironolactone 25 mg Tablet 25 mg PO QAM Entresto 97-103 mg tablet 1 tab PO BID aspirin 81 mg tablet,delayed release (DR/EC) 81 mg PO QPM Patient Comments: 10/27- otc unable to verify Held acetaminophen [Tylenol Extra Strength] 500 mg tablet 1,000 mg PO TID PRN (Reason: Pain) Hold Instructions: Provider's Order: Hold while taking Percocet Patient Comments: 10/27- otc unable to verify Rx Instructions: OTC Discharge Orders: Discharge Order (Routine); Ordered 10/30/24 Ordered By: Tiffanie Bangura Admission Data Admit Date/Time: 10/29/24 13:21 Attending Provider: Anderson Jett Admit Provider: Adolfo Gibbons Primary Care Provider: Rivka Regalado Other Providers: Andre Causey; Adolfo Gibbons; Saleem Gonzalez [facility]; [facility],Home Healthcare Other Interventions: Discharge Summary Assessment (RN) Last Done: 10/30/24 12:24 Hospital Stay Data Consultations 10/27/24 15:47 Consult Orthopedic Surgery Stat ED Decision to Admit Stat Procedures Performed Operation Date: 10/28/24 07:50 Actual Procedures p Right Distal Radius Open Reduction Internal Fixation(Right) - Andre Causey MD Diagnostic Imagining Performed Forearm X-Ray 10/27/24 12:31 XR wrist RT w scaphoid, XR hand RT min 3V routine, XR forearm RT 2V CLINICAL HISTORY: pain, fall COMPARISON: None FINDINGS: There is an acute comminuted intra-articular distal radius fracture with mild posterior displacement and apex anterior angulation. There is a nondisplaced fracture at the ulnar styloid. No other fracture or dislocation seen at the right forearm, right wrist or right hand. IMPRESSION: Acute distal radius and ulna fractures. ACT 112: Negative or not required by law. Electronically signed by: Jesse Mcadams M.D. 10/27/2024 1:03 PM Hand X-Ray 10/27/24 12:31 XR wrist RT w scaphoid, XR hand RT min 3V routine, XR forearm RT 2V CLINICAL HISTORY: pain, fall COMPARISON: None FINDINGS: There is an acute comminuted intra-articular distal radius fracture with mild posterior displacement and apex anterior angulation. There is a nondisplaced fracture at the ulnar styloid. No other fracture or dislocation seen at the right forearm, right wrist or right hand. IMPRESSION: Acute distal radius and ulna fractures. ACT 112: Negative or not required by law. Electronically signed by: Jesse Mcadams M.D. 10/27/2024 1:03 PM Wrist X-Ray 10/27/24 12:31 XR wrist RT w scaphoid, XR hand RT min 3V routine, XR forearm RT 2V CLINICAL HISTORY: pain, fall COMPARISON: None FINDINGS: There is an acute comminuted intra-articular distal radius fracture with mild posterior displacement and apex anterior angulation. There is a nondisplaced fracture at the ulnar styloid. No other fracture or dislocation seen at the right forearm, right wrist or right hand. IMPRESSION: Acute distal radius and ulna fractures. ACT 112: Negative or not required by law. Electronically signed by: Jesse Mcadams M.D. 10/27/2024 1:03 PM Knee X-Ray 10/27/24 12:50 XR knee LT 3V CLINICAL HISTORY: pain, fall COMPARISON: 05/07/2022 FINDINGS: Left knee prosthesis shows no hardware complication. Stable chronic small calcification adjacent to the medial femoral condyle. No fracture or dislocation seen. IMPRESSION: No fracture seen. ACT 112: Negative or not required by law. Electronically signed by: Jesse Mcadams M.D. 10/27/2024 1:[address] 10/27/24 14:10 CT wrist RT wo con CLINICAL HISTORY: fracture, 3D recon for preop planning TECHNIQUE: Thin section axial CT images of the right wrist. Sagittal and coronal reformats were obtained. Three-dimensional reformats were created on a workstation. DLP is 302. COMPARISON STUDY: X-ray earlier today FINDINGS: There is an acute extensively comminuted fracture with intra-articular extension at the distal radius. There is one half shaft width posterior displacement of the largest dorsal fragment. There is mild apex anterior angulation. Largest intra-articular gap measures 3 mm. There is minimal step-off of some of the fragments. There is an acute nondisplaced fracture at the base of the ulnar styloid. No other fracture seen at the wrist. There are mild degenerative changes. No significant soft tissue hematoma seen. IMPRESSION: Acute distal radius and ulna fractures ACT 112: Negative or not required by law. Electronically signed by: Jesse Mcadams M.D. 10/27/2024 2:57 PM Wrist X-Ray 10/28/24 00:00 INTRAOPERATIVE RADIOGRAPHS CLINICAL HISTORY: Open reduction and internal fixation of the right radius. Fluoro time: 17 seconds Ka,r: 0.42 mGy FINDINGS: 2 spot fluoroscopic views of the right wrist are correlated with x- rays dated 10/27/2024. There has been buttress plate fixation along the volar cortex of a comminuted distal radial fracture with advent of near-anatomic alignment. The orthopedic hardware appears intact. There is an avulsion fracture the ulnar styloid. Overlying soft tissue edema is observed. IMPRESSION: Intraoperative images from open reduction and internal fixation of a distal radial fracture as above. Electronically signed by: Wang Sykes M.D. 10/29/2024 7:14 AM Wrist X-Ray 10/28/24 20:10 Exam(s): XR RIGHT WRIST, 3+ views EXAM: XR Right Wrist Complete, 3 or More Views CLINICAL HISTORY: Reason for exam: s/p ORIF distal radius fracture. TECHNIQUE: Frontal, lateral and oblique views of the right wrist. COMPARISON: 10/27/2024 FINDINGS/IMPRESSION: Status post volar [id number] fixation of intra-articular distal radius fracture, now held in anatomic alignment. No hardware complication. Known nondisplaced ulnar styloid fracture is presently obscured by overlying cast. No dislocation. Soft tissue swelling. Electronically signed by: Sierra Garcia M.D. 10/28/24 23:37 PM Pending Results Patient Have Any Pending Studies at Discharge: No Discharge Instructions Given to Patient (Per Discharging Provider) Banco, You were admitted to the hospital after a fall resulted in a distal radial fracture and an ulnar styloid fracture of your right wrist. You had this surgically fixed with Dr. Warren on 10/28/2024. This surgery went well without any complications. Your left knee x-rays were negative and there is no effusion on exam, likely your left knee pain is from a contusion and will improve over the next several days. Your back pain is almost certainly muscular and will continue to improve with increased walking/movement. You were evaluated by PT and OT who recommended home health services, which have been arranged by your rehabilitation caseworker. Upon discharge from the hospital: * Take Percocet 28911 mg every 6 hours NEEDED for pain. Percocet is a combination of oxycodone and acetaminophen (Tylenol). Be cautious about taking additional Tylenol on top of Percocet; the maximum daily Tylenol dose is 3,[address] or operate heavy machinery while taking Percocet as it is a narcotic pain medication. * You can use Ibuprofen as needed for mild pain. You can take this while taking Percocet. * Continue to use the sling while your nerve block is in place. You can stop using the sling once the nerve block has worn off. * Continue both active and passive range of motion of your right fingers once the nerve block wears off. * Continue to use the hemiwalker as needed. * Follow the activity instructions that Dr. Causey reviewed with you. * Follow-up with orthopedics as scheduled on 11/09 at 12:30 PM. * Follow-up with your PCP in 1-2 weeks. It was a pleasure taking care of you while you were in the hospital! Supervising Physician Co-Signing Physician Notes chart reviewed, case d/w S GLO Bangura. as above Total Time Total Time Spent Total Time Spent (In Minutes): Greater than 30 minutes spent completing this discharge process including direct patient care, medication reconciliation, documentation, review of labs and images, and coordination of care. Coding Level of Care Code 38654 INP/OBS DISCH >30 MIN Diagnoses Distal radial fracture S52.509A Encounter type: initial encounter Laterality: right Fracture of right ulnar styloid S52.611A Acute pain of left knee M25.562 Fall W19.XXXA
== END 2024-10-30 13:47 | disposition home health service (06) | DRG 511 ==
LOC: ED 10:55 → 3W 10:55 → SUATTDRO 14:34 → OBSVTOIN 14:34 → 3W 16:20